=== PATIENT | female | born 1940 | race Hispanic/Latino ===

== ENCOUNTER 2016-10-01 21:25 | Inpatient (IN) | payer MEDICARE, OTHER ==
[2016-10-01 21:25] VITALS: BMI 36.6
[2016-10-01] MEDS ORDERED: Albuterol 0.083% Inhal Sol (2.5 mg/3 mL) UD INH STA (21:45)
[2016-10-01] MEDS ORDERED: Albuterol 0.083% Inhal Sol (2.5 mg/3 mL) UD ONE (21:46)
[2016-10-01 22:04] LABS: VENOUS BLOOD GAS BASE EXCESS 7.3 mmol/L (0.0-2.0); VENOUS BLOOD GAS PCO2 58 mmHg (40-60); VENOUS BLOOD PH 7.38 (7.32-7.43)
--- NOTE | 2016-10-01 22:05 | ED PDOC ---
HPI: SOB/CHF/COPD Time Seen by Provider: 10/01/16 21:39 Chief Complaint (Nursing): Respiratory Distress Chief Complaint (Provider): SOB History Per: Patient History/Exam Limitations: no limitations Onset/Duration Of Symptoms: Days (3) Current Symptoms Are (Timing): Still Present Additional Complaint(s): The patient is a 75yo female with PMHx of shortness of breath, presents to the ED for evaluation of worsening shortness of breath for the past 3 days. Pt reports worsening dyspnea with exertion, cough with productive yellow phlegm. pt denies chest pain as well as feeling febrile. She currently offers no additional medical complaints. Past Medical History Reviewed: Historical Data, Nursing Documentation, Vital Signs Vital Signs: Last Vital Signs Temp 101.2 F H 10/01/16 22:03 Pulse 97 H 10/01/16 21:28 Resp 18 10/01/16 21:28 BP 120/61 10/01/16 21:28 Pulse Ox 98 10/01/16 22:12 - Medical History PMH: Asthma, Diabetes, HTN - Surgical History Surgical History: Cholecystectomy - Family History Family History: States: Unknown Family Hx - Home Medications Home Medications: Ambulatory Orders Medication Instructions Recorded Atorvastatin Calcium [Lipitor] 10 mg PO DAILY 01/06/15 Glimepiride [amaRYL] 2 mg PO DAILY 01/06/15 Metformin HCl 850 mg PO BID 01/06/15 Sertraline [Zoloft] 100 mg PO HS 01/06/15 Sitagliptin Phosphate [Januvia] 100 mg PO DAILY 01/06/15 Acetaminophen [Tylenol Extra 1,000 mg PO Q12 PRN 02/27/16 Strength] Albuterol 0.083% [Albuterol 0.083% 1 inh INH Q6 PRN 02/27/16 Inhal Ale (2.5 mg/3 ml) UD] Albuterol Sulfate [Proair Hfa] 2 inh INH Q4H PRN 02/27/16 Budesonide/Formoterol Fumarate 1 inh INH Q4 PRN 02/27/16 [Symbicort 160-4.5 Mcg Inhaler] Ergocalciferol (Vitamin D2) 50,000 units PO QWK 02/27/16 [Vitamin D2] Guaifenesin/Codeine Phosphate 10 ml PO Q6 PRN 02/27/16 [Guaifenesin-Codeine Syrup] Iron Ps Cmplx/Vit B12/FA 1 cap PO DAILY 02/27/16 [Poly-Iron 150 Forte Capsule] Lisinopril [Zestril] 10 mg PO DAILY 02/27/16 Mometasone Furoate [Nasonex] 17 gm NS DAILY 02/27/16 Montelukast [Singulair] 10 mg PO HS 02/27/16 Pioglitazone [Actos] 15 mg PO DAILY 02/27/16 Azithromycin [Zithromax] 500 mg PO DAILY #5 tab 03/01/16 Methylprednisolone [Medrol Dose 4 mg PO ASDIR #21 mg 03/01/16 Pack (21 tabs)] - Allergies Allergies/Adverse Reactions: Allergies Allergy/AdvReac Type Severity Reaction Status Date / Time No Known Allergies Allergy Verified 05/15/15 14:01 Review of Systems ROS Statement: Except As Marked, All Systems Reviewed And Found Negative Cardiovascular: Negative for: Chest Pain Respiratory: Positive for: Cough, Shortness of Breath, SOB with Exertion, Sputum (yellow) Physical Exam - Reviewed Nursing Documentation Reviewed: Yes Vital Signs Reviewed: Yes - Physical Exam Appears: Positive for: Non-toxic, Uncomfortable. Negative for: Well (obese, chronically ill appearing) Head Exam: Positive for: ATRAUMATIC, NORMAL INSPECTION, NORMOCEPHALIC Skin: Positive for: Normal Color Eye Exam: Positive for: Normal appearance Neck: Positive for: Normal Cardiovascular/Chest: Positive for: Regular Rate, Rhythm Respiratory: Positive for: Wheezing (scattered wheeze bilaterAL) Extremity: Positive for: Other (1+ pitting edema to bilateral knees) - Laboratory Results Result Diagrams: 10/01/16 21:55 10/01/16 21:55 - ECG O2 Sat by Pulse Oximetry: 98 (RA) Pulse Ox Interpretation: Normal Medical Decision Making Medical Decision Making: Time: 2200 Impression: Influenza vs pneumonia vs CHF exacerbation Plan: -- Bloodwork -- CxR -- Rapid flu -- Albuterol 2.5 mg INH -- Medrol 125 mg IV -- Tylenol 625 mg PO --Reassess 2300 Pt. has evidence of PNA on CXR. Will treat for CAP and admit. Case d/w Dr. Mason. Scribe Attestation: Documented by Marce Herrera acting as a scribe for Julián Ross MD. Provider Attestation: All medical record entries made by the Scribe were at my direction and personally dictated by me. I have reviewed the chart and agree that the record accurately reflects my personal performance of the history, physical exam, medical decision making, and the department course for this patient. I have also personally directed, reviewed, and agree with the discharge instructions and disposition. Disposition - Clinical Impression Clinical Impression: Pneumonia - Disposition Disposition Time: 23:00 Condition: STABLE
[2016-10-01 22:19] LABS: BASO % 0.3 % (0.0-2.0); EOS % 0.2 % (0.0-4.0); HEMATOCRIT 28.2 % (34.0-47.0); LYMPH # 1.1 K/uL (1.0-4.3); MEAN CELL VOLUME 77.3 fl (81.0-99.0); MEAN CORPUSCULAR HEMOGLOBIN 23.4 pg (27.0-31.0); MEAN CORPUSCULAR HGB CONC 30.3 g/dL (33.0-37.0); MONO # 0.6 K/uL (0.0-0.8); NEUT # 9.5 K/uL (1.8-7.0); NEUT % 84.5 % (50.0-75.0); RED CELL DISTRIBUTION WIDTH 19.4 % (11.5-14.5); WHITE BLOOD COUNT 11.3 K/uL (4.8-10.8)
[2016-10-01] MEDS ORDERED: Azithromycin 500 MG in Sodium Chloride 0.9% 250 ML IVPB STA (22:47)
[2016-10-01] MEDS ORDERED: cefTRIAXone (Rocephin) 1 gm Inj ONE (22:50)
[2016-10-01 22:54] LABS: PARTIAL THROMBOPLASTIN TIME 24.8 SECONDS (23.3-32.5)
[2016-10-01 23:03] LABS: ALB/GLOB RATIO 1.2 (1.0-2.1); ALKALINE PHOSPHATASE 70 U/L (38-126); ALT/SGPT 24 U/L (9-52); AST/SGOT 27 U/L (14-36); BILIRUBIN,TOTAL 0.9 mg/dl (0.2-1.3); BLOOD UREA NITROGEN 10 mg/dl (7-17); CARBON DIOXIDE 28 mmol/L (22-30); CHLORIDE 101 mmol/L (98-107); GFR AFRICAN-AMERICAN > 60; GLUCOSE,RANDOM 147 mg/dL (65-105); SODIUM 142 mmol/l (132-148); TOTAL PROTEIN 7.2 G/DL (6.3-8.2)
[2016-10-01] MEDS ORDERED: cefTRIAXone 2 GM in Sodium Chloride 0.9% 100 ML IVPB STA (23:22)
[2016-10-01] MEDS ORDERED: Sodium Chloride 0.9% 1,000 ML IV STA (23:38)
--- NOTE | 2016-10-01 23:58 | CP.PCM.HP ---
History of Present Illness - History of Present Illness History of Present Illness: PCP:Kirby Duran MD Chief Complaint: SOB x3 days HPI: 75 years old female living alone and using a cane and wheel chair to ambulate, has hx of DM II; HTN andd Asthma- COPD on home oxygen She comes with worsening of SOB over 3 days, associated with productive cough, yellow sputum and frontal headaches. The SOB increases with exertion. No nausea, vomits , chest pain, palpitation, nor fever at home. PMH: Asthma, COPD; DM II; HTN; Obesity; HLD; CHF PSH: Cholecystectomy; Hysterectomy FH: Unknown Family Hx SH: No Cigarettes; no Alcohol; no illegal drug use; Live alone; ambulate either a cane or wheel chair Allergies: NKDA Present on Admission - Present on Admission Any Indicators Present on Admission: Yes History of DVT/PE: No History of Uncontrolled Diabetes: Yes Urinary Catheter: No Decubitus Ulcer Present: No Review of Systems - Constitutional Constitutional: Headache. absent: Anorexia, Chills, Fatigue, Fever, Lethargy - EENT Eyes: Requires Corrective Lenses. absent: Diplopia, Floaters, Sees Flashes Ears: absent: Decreased Hearing, Ear Discharge, Ear Pain, Tinnitus Nose/Mouth/Throat: absent: Epistaxis, Nasal Congestion, Nasal Discharge, Sinus Pain, Sinus Pressure, Sore Throat - Cardiovascular Cardiovascular: absent: Chest Pain, Dyspnea, Edema, Lightheadedness, Paroxysmal Nocturnal Dyspnea - Respiratory Respiratory: Cough, Wheezing. absent: Dyspnea, Pain on Inspiration - Gastrointestinal Gastrointestinal: absent: Abdominal Pain, Constipation, Diarrhea, Nausea, Vomiting - Genitourinary Genitourinary: absent: Dysuria, Flank Pain, Hematuria, Urinary Frequency - Musculoskeletal Musculoskeletal: Arthralgias. absent: Back Pain - Integumentary Integumentary: absent: Skin Ulcer, Sores, Striae, Swelling - Neurological Neurological: absent: Confusion, Dizziness, Focal Weakness, Memory Loss, Weakness - Psychiatric Psychiatric: absent: Anxiety, Depression, Memory Loss, Panic Attacks - Endocrine Endocrine: absent: Palpitations, Polydipsia, Polyphagia, Polyuria - Hematologic/Lymphatic Hematologic: absent: Easy Bleeding, Easy Bruising Past Patient History - Past Medical History & Family History Past Medical History?: Yes - Past Social History Smoking Status: Never Smoked Chewing Tobacco Use: No Cigar Use: No Alcohol: None Drugs: Denies Home Situation {Lives}: Alone - CARDIAC Hx Hypercholesterolemia: Yes Hx Hypertension: Yes - PULMONARY Hx Asthma: Yes Hx Chronic Obstructive Pulmonary Disease (COPD): Yes - NEUROLOGICAL Hx Neurological Disorder: No - HEENT Hx HEENT Problems: No - RENAL Hx Chronic Kidney Disease: No - ENDOCRINE/METABOLIC Hx Diabetes Mellitus Type 2: Yes - HEMATOLOGICAL/ONCOLOGICAL Hx Blood Disorders: No - INTEGUMENTARY Hx Dermatological Problems: No - MUSCULOSKELETAL/RHEUMATOLOGICAL Hx Falls: No - GASTROINTESTINAL Hx Gastrointestinal Disorders: No - GENITOURINARY/GYNECOLOGICAL Hx Genitourinary Disorders: No - PSYCHIATRIC Hx Psychophysiologic Disorder: Yes Hx Substance Use: No - SURGICAL HISTORY Hx Cholecystectomy: Yes Hx Hysterectomy: Yes - ANESTHESIA Hx Anesthesia: Yes Hx Anesthesia Reactions: No Meds Allergies/Adverse Reactions: Allergies Allergy/AdvReac Type Severity Reaction Status Date / Time No Known Allergies Allergy Verified 05/15/15 14:01 Physical Exam - Constitutional Appears: In Acute Distress - Head Exam Head Exam: ATRAUMATIC, NORMAL INSPECTION, NORMOCEPHALIC - Eye Exam Eye Exam: EOMI, Normal appearance Pupil Exam: NORMAL ACCOMODATION, PERRL - ENT Exam ENT Exam: Mucous Membranes Dry, Mucous Membranes Moist, Normal Exam - Neck Exam Neck exam: Positive for: Full Rom, Normal Inspection. Negative for: Lymphadenopathy, Tenderness - Respiratory Exam Additional comments: Bibasal fine inspiratory rales. - Cardiovascular Exam Cardiovascular Exam: RRR, +S1, +S2 - GI/Abdominal Exam Additional comments: obese with abdomen full, soft, non tender, +ve bowel sounds - Rectal Exam Rectal Exam: Deferred - Extremities Exam Extremities exam: Positive for: joint swelling, normal inspection. Negative for : calf tenderness, full ROM - Back Exam Back exam: NORMAL INSPECTION. absent: CVA tenderness (L), CVA tenderness (R) - Neurological Exam Neurological exam: Alert, CN II-XII Intact, Oriented x3, Reflexes Normal - Psychiatric Exam Psychiatric exam: Normal Affect, Normal Mood - Skin Skin Exam: Dry, Intact, Normal Color, Warm Results - Vital Signs Recent Vital Signs: Last Vital Signs Temp 101.2 F H 10/01/16 22:03 Pulse 97 H 10/01/16 21:28 Resp 18 10/01/16 21:28 BP 120/61 10/01/16 21:28 Pulse Ox 98 10/01/16 23:46 - Labs Result Diagrams: 10/01/16 21:55 10/01/16 21:55 Labs: Laboratory Results - last 24 hr 10/01/16 10/01/16 21:55 21:58 WBC 11.3 H RBC 3.65 L Hgb 8.6 L Hct 28.2 L MCV 77.3 L MCH 23.4 L MCHC 30.3 L RDW 19.4 H Plt Count 245 MPV 9.0 Neut % (Auto) 84.5 H Lymph % (Auto) 10.0 L [place] % (Auto) 5.0 Eos % (Auto) 0.2 Baso % (Auto) 0.3 Neut # 9.5 H Lymph # 1.1 [place] # 0.6 Eos # 0.0 Baso # 0.0 pO2 30 VBG pH 7.38 VBG pCO2 58 VBG HCO3 29.5 VBG Total CO2 36.1 H VBG O2 Sat (Calc) 69.2 H VBG Base Excess 7.3 H VBG Potassium 3.9 Glucose 148 H Lactate 0.8 FiO2 21.0 Sodium 142 140.0 Potassium 4.0 Chloride 101 109.0 H Carbon Dioxide 28 Anion Gap 17 BUN 10 Creatinine 0.6 L Est GFR ( Amer) > 60 Est GFR (Non-Af Amer) > 60 Random Glucose 147 H Calcium 9.0 Total Bilirubin 0.9 AST 27 ALT 24 Alkaline Phosphatase 70 Troponin I < 0.0120 NT-Pro-B Natriuret Pep 5680 H Total Protein 7.2 Albumin 3.9 Globulin 3.2 Albumin/Globulin Ratio 1.2 Venous Blood Potassium 3.9 Influenza Typ A,B (EIA) Negative for flu a/b - Imaging and Cardiology Chest x-ray Status: Image reviewed by me Additional comment: Bibasal haziness Assessment & Plan - Assessment and Plan (Free Text) Assessment: #. COPD Exacerbation #. r/o pneumonia #. CHF #. Anemia #.DM II #.Obesity Plan: 75 years old female living alone and using a cane and wheel chair to ambulate, has hx of DM II; HTN andd Asthma- COPD on home oxygen She comes with worsening of SOB over 3 days, associated with productive cough, yellow sputum and frontal headaches. #. COPD Asthma Exacerbation - Consult Pulmonary Dr Dia - Singular - Duoneb q4hrs -Solu-Medrol 40mg IV Q8H - Mucinex Q 12 #. Pneumonia - Rocephin 1gm IV Daily - Azithromycin #. CHF Diastolic Dysfunction with EF 40-45% on 02/27/16 - lisinopril - Lasix 20mg IV daily #. Anemia - Follow Iron Panel - Follow Hb #.DM II - Diabetic Diet - Januvia/Metformin/ Glipizide - HbA1c #.Obesity - Physical Therapist Clinic Director on diet an d exercise #. Depression - psych medications #. DVT prophylaxis with Lovenox #Code Status: Full - Date & Time Date: 10/01/16 Time: 23:58
[2016-10-02] MEDS ORDERED: Ergocalciferol 50,000 Intl Units Cap PO SCH (02:00)
[2016-10-02] MEDS: Albuterol-Ipratrop 3 mg / 0.5 (3 ml) UD INH SCH ×5 (04:31→20:00)
[2016-10-02 06:27] LABS: RBC URINE 3 /hpf (0-3); URINE BACTERIA RARE (<OCC); URINE BILIRUBIN NEGATIVE (NEGATIVE); URINE BLOOD NEGATIVE (NEGATIVE); URINE COLOR YELLOW (YELLOW); URINE GLUCOSE (UA) NEG (Normal); URINE KETONE 20 mg/dL (NEGATIVE); URINE LEUKOCYTE ESTERASE TRACE Leu/uL (Negative); URINE PROTEIN 30 mg/dL (NEGATIVE); URINE UROBILINOGEN 0.2-1.0 mg/dL (0.2-1.0); WBC URINE 2 /hpf (0-5)
[2016-10-02 06:59] LABS: BASO % 0.1 % (0.0-2.0); HEMATOCRIT 27.9 % (34.0-47.0); LYMPH # 0.6 K/uL (1.0-4.3); LYMPH % 6.2 % (20.0-40.0); MEAN CELL VOLUME 77.2 fl (81.0-99.0); MEAN CORPUSCULAR HEMOGLOBIN 23.9 pg (27.0-31.0); MEAN PLATELET VOLUME 9.2 fl (7.2-11.7); MONO # 0.1 K/uL (0.0-0.8); MONO % 0.6 % (0.0-10.0); NEUT # 8.9 K/uL (1.8-7.0); NEUT % 93.1 % (50.0-75.0); PLATELET COUNT 219 K/uL (130-400); RED CELL DISTRIBUTION WIDTH 19.3 % (11.5-14.5); WHITE BLOOD COUNT 9.5 K/uL (4.8-10.8)
[2016-10-02] MEDS: Insulin Regular 100 units/ml SC SCH ×4 (07:40→21:18)
[2016-10-02] MEDS ORDERED: cefTRIAXone 2 GM in Sodium Chloride 0.9% 100 ML IVPB SCH (09:00)
[2016-10-02] MEDS: GlipiZIDE 5 mg SR Tab PO SCH (09:08)
[2016-10-02] MEDS: guaiFENesin 600 mg ER Tab PO SCH ×2 (09:09→21:20)
[2016-10-02] MEDS: Enoxaparin 40 mg Syringe SC SCH (09:09)
[2016-10-02] MEDS: methylPREDNISolone 40 MG in Sodium Chloride 0.9% 50 ML IVPB SCH ×2 (09:10→16:34)
[2016-10-02] MEDS: Azithromycin 500 MG in Sodium Chloride 0.9% 250 ML IVPB SCH (09:24)
[2016-10-02] MEDS ORDERED: Sodium Chloride 3% for Inhalation 4 ML VIAL.NEB IH PRN (09:25)
--- NOTE | 2016-10-02 09:49 | RAD ---
PROCEDURE: CHEST RADIOGRAPH, 1 VIEW HISTORY: r/o PNA COMPARISON: 02/27/2016 FINDINGS: LUNGS: There is mild pulmonary venous congestion. There is no focal consolidation. PLEURA: No pneumothorax or pleural fluid seen. CARDIOVASCULAR: There is persistent mild cardiomegaly OSSEOUS STRUCTURES: No significant abnormalities. VISUALIZED UPPER ABDOMEN: Normal. OTHER FINDINGS: None. IMPRESSION: Persistent mild cardiomegaly and mild pulmonary venous congestion
[2016-10-02 10:12] LABS: IRON 63 ug/dL (37-170)
--- NOTE | 2016-10-02 10:30 | CON ---
DATE: 10/02/2016 HISTORY: The patient is a 75-year-old female who was referred for pulmonary evaluation by Dr. Mason, after being admitted with shortness of breath, exercise intolerance, cough for the past several days prior to presentation. The patient is on home oxygen and has a history of chronic obstructive pulmo nary disease. PAST MEDICAL HISTORY: Also remarkable for chronic obstructive pulmonary disease, diabetes mellitus, hypertension, hyperlipidemia, congestive heart failure, history of cholecystectomy and hysterectomy i n the past. FAMILY HISTORY: Noncontributory. SOCIAL HISTORY: She lives alone at home. Denies smoking or alcohol use. REVIEW OF SYSTEMS: Positive for shortness of breath. PHYSICAL EXAMINATION: GENERAL: The patient is alert, oriented, appears to be in mild dyspnea at rest. VITAL SIGNS: Blood pressure 120/60, pulse of 97, respiratory rate of 18, O2 sat 98% on room air. Te mperature maximum 101.2 degrees Fahrenheit. SKIN: Shows fair turgor. HEENT: Pupils equal and react to light and accommodation. Mouth shows fair hygiene. NECK: JVP flat. LUNGS: Bilateral scattered rales and wheezing. HEART: S1, S2. ABDOMEN: Soft, nontender, no organomegaly. EXTREMITIES: Show no edema or cyanosis. CENTRAL NERVOUS SYSTEM: Grossly intact. LABORATORY DATA: WBC 11.3, hemoglobin 8.6, platelet count 245,000. Sodium 142, potassium 4.0, BUN 1 0, creatinine 0.6, serum glucose 147. Chest x-ray official report pending, but appears to have bilat eral pulmonary infiltrates at both bases. IMPRESSION: Acute exacerbation of chronic obstructive pulmonary disease and pneumonia. PLAN: Sputum Gram stain and cultures. IV antibiotics, aerosolized bronchodilators, intravenous ster oids. We will continue to follow with you. Septic workup already done. Mikhail Dia MD cc: [id number] TT: 10/02/2016 10:29:58 Confirmation # [id number] Dictation # [id number] hsaron
[2016-10-02 12:16] LABS: NEUTROPHIL 92 % (42-75); TOTAL CELLS COUNTED 100
--- NOTE | 2016-10-02 12:41 | CON ---
DATE: 10/02/2016 CARDIOLOGY CONSULT REASON FOR CONSULTATION: Shortness of breath. HISTORY OF PRESENT ILLNESS: The patient is a 75-year-old female who has history of bronchi al asthma, hypertension, diabetes mellitus, history of congestive heart failure. An echocardiographi c study done in 02/2016 revealed ejection fraction in the range of 40-45% with moderate pulmonary hype rtension. The patient presented because of shortness of breath, wheezing, and productive cough. She denies any retrosternal chest pain. The patient is unaware of any history of heart attack in the [facility]. SOCIAL HISTORY: Nonsmoker, nondrinker. MEDICATIONS: ____ inhaler q. 4 hours, Glucophage 850 mg twice a day, Glucotrol XL 5 mg once a day, J anuvia 100 mg daily, Lasix 20 mg intravenously once a day, Lipitor 10 mg once a day, Lovenox 40 mg gimenez bcutaneously once a day, Solu-Medrol 40 mg intravenously q. 8 hours, Mucinex 600 mg twice a day, Sing ulair 10 mg daily, Zestril 10 mg once a day, Zoloft 100 mg at bedtime. REVIEW OF SYSTEMS: No fever or chills. No hemoptysis. No vomiting or diarrhea. PHYSICAL EXAMINATION: GENERAL: The patient is an elderly female who does not appear to be in any distress. VITAL SIGNS: Blood pressure 1____9/81, heart rate 89, temperature 98.6, respirations 21. HEENT: Pale conjunctivae. NECK: No JVD. CHEST: Minimal left basilar crackles and bilateral rhonchi. HEART: S1, S2 regular. ABDOMEN: Soft. EXTREMITIES: ____ leg edema. EKG revealed sinus rhythm at a rate of 99. Echocardiographic study in 02/2016 revealed normal left ventricular size, wall thickness, mild general ized hypokinesis, more pronounced in the septum. Ejection fraction in the range of 40-45%, and moder ate pulmonary hypertension. Grade I abnormal relaxation pattern. Chest x-ray revealed cardiomegaly, moderate CHF, cannot rule out left pleural effusion. LABORATORY DATA: PT/PTT within normal limits. Hemoglobin and hematocrit 8.6 and 27.9. White count and platelet count today are within normal limits. Yesterday's white count was 11.3. SMA-7 is withi n normal limits except for glucose 147 and creatinine 0.6. One set of troponins is negative. ProBNP is 5680. ASSESSMENT: 1. Exacerbation of congestive heart failure. 2. Consider cardiac asthma. 3. Hypertension. 4. Diabetes mellitus. 5. Secondary pulmonary hypertension. 6. Chronic obstructive lung disease and/or bronchial asthma. RECOMMENDATIONS: Continue current IV Zithromax and IV Rocephin. Continue current bronchodilators. Increase Lasix to 40 mg intravenously once a day. Continue Lipitor 10 mg once a day, subcutaneous Lo venox at 40 mg once a day, and Zestril 10 mg once a day. The patient is not a suitable candidate for beta-deysi therapy at least at this time. Tawanda Khan MD cc: [id number] TT: 10/02/2016 12:40:40 Confirmation # [id number] Dictation # [id number] jn
--- NOTE | 2016-10-02 13:53 | CP.PCM.PN ---
Subjective - Date & Time of Evaluation Date of Evaluation: 10/02/16 Time of Evaluation: 13:45 - Subjective Subjective: Hospitalist Progress Note (Patient was seen and examined at 1:45 PM 10/02/16 [id number]) 75 year old female who was admitted on 10/01/16 for treatment of COPD Exacerbation and CHF Exacerbation. Currently upon FULL ROS: Still SOB but better than when she came in Minor Bifrontal [place] NO chest pain, NO palpitations, Cough has improved, NO dysphagia/odynophagia, NO abdominal pain, NO burning/pain with urination, NO edema, NO paresthesias, NO new changes in vision/eye pain, NO new changes in hearing/ear pain HEENT: NCA, PERRLA, EOMI, NO cervical lymphadenopathy, NO thyromegaly, NO Pharyngeal Erythema/Exudate, Oral Mucosa and Nasal Turbinates are dry Cardio: Holosystolic Murmur in all bonilla Respiratory: Diffuse End expiratory wheezing with bibasilar inspiratory rales GI: BS x 4, Soft, Central Obesity, NT, NO HSM, NO guarding/rebound tenderness Ext: Pulses are strong and equal, Capillary Refill is 2 seconds, NO edema Neuro: CN II throiugh XII Assessment and Plan: 1). COPD Exacerbation Pulmonology Dr. Ifeoma Copeland Q4H PRN SOB/Wheezing Methylprednisone 40 mg IV Q8H Singulair 10 mg PO 1x/day 2). Pneumonia Azithromycin 500 mg IV 1x/day Ceftriaxone 1 gm IV 1x/day Mucinex 600 mg PO Q12H F/U Blood Culture Influenza Negative 3). CHF Diastolic Dysfunction Exacerbation Chest X Ray shows mild pulmonary vascular congestion ProBNP 5,680 2D Echocardiogram 02/27/16 showed EF 40-45% Lasix 40 mg IV 1x/day Zestril 10 mg PO 1x/day NO Beta Kenzie at this time Cardiology Dr. Khan 4). Anemia of Chronic Disease Stable HgB/Hct Monitor 5). DM 2 Januvia 100 mg PO 1x/day Glucotrol XL 5 mg PO 1x/day Metformin 850 mg PO 2x/day RISS F/U HgBA1C 6). HLD Lipitor 10 mg PO QHS 7). Depression Zoloft 10 mg PO QHS 8). Prophylactic Measures Lovenox 40 mg IV SQ 1x/day Protonix 40 mg PO 1x/day Vitamin D 50,000 Units once a week Objective - Vital Signs/Intake and Output Vital Signs (last 24 hours): Temp Pulse Resp BP Pulse Ox 97.4 F L 90 20 130/74 96 10/02/16 10:00 10/02/16 10:00 10/02/16 10:00 10/02/16 10:00 10/02/16 10:00 - Medications Medications: Current Medications Albuterol/Ipratropium (Duoneb 3 Mg/0.5 Mg (3 Ml) Ud) 3 ml INH RQ4 [facility] Last Admin: 10/02/16 11:38 Dose: 3 ml Atorvastatin Calcium (Lipitor) 10 mg PO DAILY [facility] Last Admin: 10/02/16 09:09 Dose: 10 mg Enoxaparin Sodium (Lovenox) 40 mg SC DAILY [facility] PRN Reason: Protocol Last Admin: 10/02/16 09:09 Dose: 40 mg Ergocalciferol (Drisdol 50,000 Intl Units Cap) 1 cap PO QWK [facility] Furosemide (Lasix) 40 mg IVP DAILY [facility] Glipizide (Glucotrol Xl) 5 mg PO BRK [facility] Last Admin: 10/02/16 09:08 Dose: 5 mg Guaifenesin (Mucinex La) 600 mg PO Q12 [facility] Last Admin: 10/02/16 09:09 Dose: 600 mg Ceftriaxone Sodium 1 gm/ (Sodium Chloride) 100 mls @ 100 mls/hr IVPB DAILY [facility] Last Admin: 10/02/16 09:22 Dose: 100 mls/hr Azithromycin 500 mg/ Sodium (Chloride) 250 mls @ 250 mls/hr IVPB DAILY [facility] Last Admin: 10/02/16 09:24 Dose: 250 mls/hr Methylprednisolone 40 mg/ (Sodium Chloride) 50 mls @ 100 mls/hr IVPB Q8 [facility] Last Admin: 10/02/16 09:10 Dose: 100 mls/hr Insulin Human Regular (Humulin R) 0 units SC ACHS [facility] PRN Reason: Protocol Last Admin: 10/02/16 12:56 Dose: 1 unit Lisinopril (Zestril) 10 mg PO DAILY [facility] Last Admin: 10/02/16 09:10 Dose: 10 mg Metformin HCl (Glucophage) 850 mg PO BID [facility] Last Admin: 10/02/16 09:08 Dose: 850 mg Montelukast Sodium (Singulair) 10 mg PO DAILY [facility] Last Admin: 10/02/16 09:09 Dose: 10 mg Sertraline HCl (Zoloft) 100 mg PO [facility] Sitagliptin Phosphate (Januvia) 100 mg PO DAILY [facility] Last Admin: 10/02/16 09:08 Dose: 100 mg - Labs Labs: 10/02/16 06:30 PT 10.6 SECONDS (9.6-11.2) 10/01/16 21:55 INR 1.02 (0.92-1.08) 10/01/16 21:55 APTT 24.8 SECONDS (23.3-32.5) 10/01/16 21:55
[2016-10-02 19:24] LABS: ABG ALLEN TEST YES; ARTERIAL BLOOD GAS HCO3 30.2 mmol/L (21-28); ARTERIAL BLOOD GAS MODE 3LNC; ARTERIAL BLOOD GAS O2 CAPACITY 12.3 mL/dL (16-24); ARTERIAL BLOOD GAS O2 CONTENT 12.2 ML/dL (15-23); ARTERIAL BLOOD GAS PH 7.39 (7.35-7.45); ARTERIAL BLOOD GAS PO2 112 mm/Hg (80-100); ARTERIAL BLOOD HGB O2 SAT 96.9 % (95.0-98.0); CARBOXYHEMOGLOBIN 1.4 % (0.5-1.5); HHB 0.6 % (0.0-5.0); METHEMOGLOBIN 1.1 % (0.0-3.0)
[2016-10-02] MEDS ORDERED: MONTELUKAST 10 MG PO SCH (22:00)
[2016-10-03] MEDS: methylPREDNISolone 40 MG in Sodium Chloride 0.9% 50 ML IVPB SCH ×4 (00:44→18:58)
[2016-10-03] MEDS: Albuterol-Ipratrop 3 mg / 0.5 (3 ml) UD INH SCH ×7 (01:00→23:56)
[2016-10-03] MEDS: Insulin Regular 100 units/ml SC SCH ×4 (06:35→23:07)
[2016-10-03 07:15] LABS: BASO % 0.1 % (0.0-2.0); HEMATOCRIT 27.2 % (34.0-47.0); LYMPH # 0.5 K/uL (1.0-4.3); LYMPH % 5.6 % (20.0-40.0); MEAN CORPUSCULAR HEMOGLOBIN 24.2 pg (27.0-31.0); MEAN CORPUSCULAR HGB CONC 31.1 g/dL (33.0-37.0); MEAN PLATELET VOLUME 9.4 fl (7.2-11.7); MONO # 0.2 K/uL (0.0-0.8); MONO % 1.7 % (0.0-10.0); NEUT # 8.7 K/uL (1.8-7.0); NEUT % 92.6 % (50.0-75.0); RED CELL DISTRIBUTION WIDTH 19.3 % (11.5-14.5); WHITE BLOOD COUNT 9.4 K/uL (4.8-10.8)
[2016-10-03 07:40] LABS: BLOOD UREA NITROGEN 22 mg/dl (7-17); CARBON DIOXIDE 29 mmol/L (22-30); CHLORIDE 103 mmol/L (98-107); GFR AFRICAN-AMERICAN > 60; GLUCOSE,RANDOM 180 mg/dL (65-105); POTASSIUM 4.3 MMOL/L (3.6-5.0); SODIUM 146 mmol/l (132-148)
[2016-10-03] MEDS: Pantoprazole 40 mg EC Tab PO SCH (09:12)
[2016-10-03] MEDS: guaiFENesin 600 mg ER Tab PO SCH ×2 (09:12→21:10)
[2016-10-03] MEDS: GlipiZIDE 5 mg SR Tab PO SCH (09:13)
[2016-10-03] MEDS: Enoxaparin 40 mg Syringe SC SCH (09:14)
[2016-10-03] MEDS: Azithromycin 500 MG in Sodium Chloride 0.9% 250 ML IVPB SCH (09:16)
--- NOTE | 2016-10-03 12:13 | CP.PCM.PN ---
Subjective - Date & Time of Evaluation Date of Evaluation: 10/03/16 Time of Evaluation: 12:00 - Subjective Subjective: Hospitalist Progress Note (Patient was seen and examined at 12:00 PM 10/03/16 [phone] with the help of Luisana Burns who translated in Moroccan) 75 year old female who was admitted on 10/01/16 for treatment of COPD Exacerbation and CHF Exacerbation. Currently upon FULL ROS: SOB and cough much improved Moved her bowels last night No other complaints: NO chest pain, NO palpitations, Cough has improved, NO dysphagia/odynophagia, NO abdominal pain, NO n/v/d/c, NO burning/pain with urination, NO edema, NO paresthesias, NO new changes in vision/eye pain, NO new changes in hearing/ear pain HEENT: NCA, PERRLA, EOMI, NO cervical lymphadenopathy, NO thyromegaly, NO Pharyngeal Erythema/Exudate, Oral Mucosa and Nasal Turbinates are dry Cardio: Holosystolic Murmur in all bonilla Respiratory: End Expiratory Wheezing is now only scattered compared to Diffuse on 10/02/16 GI: BS x 4, Soft, Central Obesity, NT, NO HSM, NO guarding/rebound tenderness Ext: Pulses are strong and equal, Capillary Refill is 2 seconds, NO edema Neuro: CN II throiugh XII Assessment and Plan: 1). COPD Exacerbation Pulmonology Dr. Ifeoma Copeland Q4H PRN SOB/Wheezing Methylprednisone 40 mg IV Q8H changed to Q12H Singulair 10 mg PO 1x/day 2). Pneumonia Azithromycin 500 mg IV 1x/day (10/02/16) Ceftriaxone 1 gm IV 1x/day (10/02/16) Mucinex 600 mg PO Q12H F/U Blood Culture Influenza Negative 3). CHF Diastolic Dysfunction Exacerbation Chest X Ray shows mild pulmonary vascular congestion ProBNP 5,680 upon admission 2D Echocardiogram 02/27/16 showed EF 40-45% Lasix 40 mg IV 1x/day Zestril 10 mg PO 1x/day NO Beta Kenzie at this time and will start Carvedilol once ok with Cardiology Cardiology Dr. Khan 4). Anemia of Chronic Disease Stable HgB/Hct Monitor 5). DM 2 Januvia 100 mg PO 1x/day Glucotrol XL 5 mg PO 1x/day Metformin 850 mg PO 2x/day RISS F/U HgBA1C 6). HLD Lipitor 10 mg PO QHS 7). Depression Zoloft 10 mg PO QHS 8). Prophylactic Measures Lovenox 40 mg IV SQ 1x/day Protonix 40 mg PO 1x/day Vitamin D 50,000 Units once a week ROS: SOB and cough much improved Moved her bowels last night No other complaints If patient continues to do better and blood culture negative then will likely d/ c in the morning if ok with Cardiology and Pulmonology. Objective - Vital Signs/Intake and Output Vital Signs (last 24 hours): Temp Pulse Resp BP Pulse Ox 98 F 102 H 20 145/69 98 10/03/16 08:20 10/03/16 09:14 10/03/16 08:20 10/03/16 09:16 10/03/16 08:20 Intake and Output: 10/03/16 10/03/16 06:59 18:59 Intake Total 1190 Balance 1190 - Medications Medications: Current Medications Albuterol/Ipratropium (Duoneb 3 Mg/0.5 Mg (3 Ml) Ud) 3 ml INH RQ4 [facility] Last Admin: 10/03/16 11:41 Dose: 3 ml Atorvastatin Calcium (Lipitor) 10 mg PO DAILY [facility] Last Admin: 10/03/16 09:12 Dose: 10 mg Enoxaparin Sodium (Lovenox) 40 mg SC DAILY [facility] PRN Reason: Protocol Last Admin: 10/03/16 09:14 Dose: 40 mg Ergocalciferol (Drisdol 50,000 Intl Units Cap) 1 cap PO QWK [facility] Furosemide (Lasix) 40 mg IVP DAILY [facility] Last Admin: 10/03/16 09:16 Dose: 40 mg Glipizide (Glucotrol Xl) 5 mg PO BRK [facility] Last Admin: 10/03/16 09:13 Dose: 5 mg Guaifenesin (Mucinex La) 600 mg PO Q12 [facility] Last Admin: 10/03/16 09:12 Dose: 600 mg Ceftriaxone Sodium 1 gm/ (Sodium Chloride) 100 mls @ 100 mls/hr IVPB DAILY [facility] Last Admin: 10/03/16 09:15 Dose: 100 mls/hr Azithromycin 500 mg/ Sodium (Chloride) 250 mls @ 250 mls/hr IVPB DAILY [facility] Last Admin: 10/03/16 09:16 Dose: 250 mls/hr Methylprednisolone 40 mg/ (Sodium Chloride) 50 mls @ 100 mls/hr IVPB Q8 [facility] Last Admin: 10/03/16 09:15 Dose: 100 mls/hr Insulin Human Regular (Humulin R) 0 units SC ACHS [facility] PRN Reason: Protocol Last Admin: 10/03/16 06:35 Dose: Not Given Lisinopril (Zestril) 10 mg PO DAILY [facility] Last Admin: 10/03/16 09:14 Dose: 10 mg Metformin HCl (Glucophage) 850 mg PO BID [facility] Last Admin: 10/03/16 09:11 Dose: 850 mg Montelukast Sodium (Singulair) 10 mg PO DAILY [facility] Last Admin: 10/03/16 09:12 Dose: 10 mg Pantoprazole Sodium (Protonix Ec Tab) 40 mg PO DAILY [facility] Last Admin: 10/03/16 09:12 Dose: 40 mg Sertraline HCl (Zoloft) 100 mg PO HS [facility] Last Admin: 10/02/16 21:20 Dose: 100 mg Sitagliptin Phosphate (Januvia) 100 mg PO DAILY [facility] Last Admin: 10/03/16 09:13 Dose: 100 mg - Labs Labs: 10/03/16 06:05 10/03/16 06:05 PT 10.6 SECONDS (9.6-11.2) 10/01/16 21:55 INR 1.02 (0.92-1.08) 10/01/16 21:55 APTT 24.8 SECONDS (23.3-32.5) 10/01/16 21:55
--- NOTE | 2016-10-03 13:26 | PN ---
DATE: 10/03/2016 The patient's shortness of breath has improved. She denies any wheezing or productive cough. PHYSICAL EXAMINATION: VITAL SIGNS: Blood pressure 133/72, heart rate 90, temperature 98.8, respirations 21. HEENT: Pale conjunctivae. CHEST: Bilateral rhonchi. HEART: S1, S2 regular. EXTREMITIES: Trace leg edema. LABORATORIES: Today's SMA-7 within normal limits except for glucose of 180 and BUN of 22. Hemoglobi n and hematocrit 8.5 and 27.2, white count and platelet count are within normal limits. ASSESSMENT: 1. Exacerbation of congestive heart failure. 2. Chronic obstructive lung disease. 3. Hypertension and diabetes mellitus. 4. Secondary pulmonary hypertension. RECOMMENDATIONS: Continue current IV Zithromax and IV Rocephin. Continue IV Solu-Medrol, continue c urrent bronchodilators including albuterol, continue Lasix 40 mg intravenous twice a day, Lipitor 10 mg once a day, subcutaneous Lovenox at 40 mg once a day and Zestril at 10 mg once a day. Tawanda Khan MD cc: [id number] TT: 10/03/2016 13:25:26 Confirmation # [id number] Dictation # [id number]
--- NOTE | 2016-10-03 18:04 | CP.PCM.PN ---
Subjective - Date & Time of Evaluation Date of Evaluation: 10/03/16 Time of Evaluation: 18:04 - Subjective Subjective: sob improved no chest pains or cough Objective - Vital Signs/Intake and Output Vital Signs (last 24 hours): Temp Pulse Resp BP Pulse Ox 98.6 F 93 H 20 151/84 H 91 L 10/03/16 15:52 10/03/16 15:52 10/03/16 15:52 10/03/16 15:52 10/03/16 15:52 Intake and Output: 10/03/16 10/03/16 06:59 18:59 Intake Total 1190 Balance 1190 - Medications Medications: Current Medications Albuterol/Ipratropium (Duoneb 3 Mg/0.5 Mg (3 Ml) Ud) 3 ml INH RQ4 [facility] Last Admin: 10/03/16 11:41 Dose: 3 ml Atorvastatin Calcium (Lipitor) 10 mg PO DAILY [facility] Last Admin: 10/03/16 09:12 Dose: 10 mg Enoxaparin Sodium (Lovenox) 40 mg SC DAILY [facility] PRN Reason: Protocol Last Admin: 10/03/16 09:14 Dose: 40 mg Ergocalciferol (Drisdol 50,000 Intl Units Cap) 1 cap PO QWK [facility] Furosemide (Lasix) 40 mg IVP DAILY [facility] Last Admin: 10/03/16 09:16 Dose: 40 mg Glipizide (Glucotrol Xl) 5 mg PO BRK [facility] Last Admin: 10/03/16 09:13 Dose: 5 mg Guaifenesin (Mucinex La) 600 mg PO Q12 [facility] Last Admin: 10/03/16 09:12 Dose: 600 mg Ceftriaxone Sodium 1 gm/ (Sodium Chloride) 100 mls @ 100 mls/hr IVPB DAILY [facility] Last Admin: 10/03/16 09:15 Dose: 100 mls/hr Azithromycin 500 mg/ Sodium (Chloride) 250 mls @ 250 mls/hr IVPB DAILY [facility] Last Admin: 10/03/16 09:16 Dose: 250 mls/hr Methylprednisolone 40 mg/ (Sodium Chloride) 50 mls @ 100 mls/hr IVPB Q12H [facility] Insulin Human Regular (Humulin R) 0 units SC ACHS [facility] PRN Reason: Protocol Last Admin: 10/03/16 17:17 Dose: 1 unit Lisinopril (Zestril) 10 mg PO DAILY [facility] Last Admin: 10/03/16 09:14 Dose: 10 mg Metformin HCl (Glucophage) 850 mg PO BID [facility] Last Admin: 10/03/16 17:15 Dose: 850 mg Montelukast Sodium (Singulair) 10 mg PO DAILY [facility] Last Admin: 10/03/16 09:12 Dose: 10 mg Pantoprazole Sodium (Protonix Ec Tab) 40 mg PO DAILY [facility] Last Admin: 10/03/16 09:12 Dose: 40 mg Sertraline HCl (Zoloft) 100 mg PO HS [facility] Last Admin: 10/02/16 21:20 Dose: 100 mg Sitagliptin Phosphate (Januvia) 100 mg PO DAILY [facility] Last Admin: 10/03/16 09:13 Dose: 100 mg - Labs Labs: 10/03/16 06:05 10/03/16 06:05 PT 10.6 SECONDS (9.6-11.2) 10/01/16 21:55 INR 1.02 (0.92-1.08) 10/01/16 21:55 APTT 24.8 SECONDS (23.3-32.5) 10/01/16 21:55 - Constitutional Appears: Well - Head Exam Head Exam: ATRAUMATIC, NORMAL INSPECTION, NORMOCEPHALIC - Eye Exam Eye Exam: EOMI, Normal appearance, PERRL Pupil Exam: NORMAL ACCOMODATION, PERRL - ENT Exam ENT Exam: Mucous Membranes Moist, Normal Exam - Neck Exam Neck Exam: Full ROM, Normal Inspection. absent: Lymphadenopathy - Respiratory Exam Respiratory Exam: Decreased Breath Sounds, Prolonged Expiratory Phase, NORMAL BREATHING PATTERN - Cardiovascular Exam Cardiovascular Exam: REGULAR RHYTHM, +S1, +S2. absent: Murmur - GI/Abdominal Exam GI & Abdominal Exam: Soft, Normal Bowel Sounds. absent: Tenderness - Rectal Exam Rectal Exam: NORMAL INSPECTION - Extremities Exam Extremities Exam: Full ROM, Normal Capillary Refill, Normal Inspection. absent : Joint Swelling, Pedal Edema - Back Exam Back Exam: NORMAL INSPECTION - Neurological Exam Neurological Exam: Alert, Awake, CN II-XII Intact, Normal Gait, Oriented x3 - Psychiatric Exam Psychiatric exam: Normal Affect, Normal Mood - Skin Skin Exam: Dry, Intact, Normal Color, Warm Assessment and Plan - Assessment and Plan (Free Text) Assessment: copd pneumonia Plan: continue same rx
[2016-10-04] MEDS: methylPREDNISolone 40 MG in Sodium Chloride 0.9% 50 ML IVPB SCH (04:52)
[2016-10-04] MEDS: Albuterol-Ipratrop 3 mg / 0.5 (3 ml) UD INH SCH ×3 (05:00→13:10)
[2016-10-04] MEDS: Insulin Regular 100 units/ml SC SCH ×2 (06:37→13:05)
[2016-10-04 07:49] LABS: BASO % 0.1 % (0.0-2.0); HEMATOCRIT 27.6 % (34.0-47.0); LYMPH # 0.9 K/uL (1.0-4.3); LYMPH % 11.5 % (20.0-40.0); MEAN CELL VOLUME 77.3 fl (81.0-99.0); MEAN CORPUSCULAR HEMOGLOBIN 24.2 pg (27.0-31.0); MEAN CORPUSCULAR HGB CONC 31.3 g/dL (33.0-37.0); MEAN PLATELET VOLUME 9.2 fl (7.2-11.7); MONO # 0.6 K/uL (0.0-0.8); MONO % 6.9 % (0.0-10.0); NEUT # 6.5 K/uL (1.8-7.0); NEUT % 81.5 % (50.0-75.0); NRBC % 0.1 % (0.0-0.0); RED CELL DISTRIBUTION WIDTH 19.5 % (11.5-14.5); WHITE BLOOD COUNT 7.9 K/uL (4.8-10.8)
[2016-10-04 07:59] LABS: BLOOD UREA NITROGEN 26 mg/dl (7-17); CARBON DIOXIDE 29 mmol/L (22-30); CHLORIDE 104 mmol/L (98-107); GFR AFRICAN-AMERICAN > 60; GLUCOSE,RANDOM 110 mg/dL (65-105); POTASSIUM 3.8 MMOL/L (3.6-5.0); SODIUM 145 mmol/l (132-148)
[2016-10-04 08:10] VITALS: TEMP 98.1
[2016-10-04] MEDS: GlipiZIDE 5 mg SR Tab PO SCH (09:18)
[2016-10-04] MEDS: guaiFENesin 600 mg ER Tab PO SCH (09:18)
[2016-10-04] MEDS: Pantoprazole 40 mg EC Tab PO SCH (09:19)
[2016-10-04] MEDS: Enoxaparin 40 mg Syringe SC SCH (09:23)
[2016-10-04] MEDS: Azithromycin 500 MG in Sodium Chloride 0.9% 250 ML IVPB SCH (09:24)
--- NOTE | 2016-10-04 10:05 | CP.PCM.PN ---
Subjective - Date & Time of Evaluation Date of Evaluation: 10/04/16 Time of Evaluation: 10:04 - Subjective Subjective: SOB IMPROVED Objective - Vital Signs/Intake and Output Vital Signs (last 24 hours): Temp Pulse Resp BP Pulse Ox 98.1 F 94 H 20 138/69 97 10/04/16 08:09 10/04/16 09:19 10/04/16 08:09 10/04/16 09:19 10/04/16 08:09 - Medications Medications: Current Medications Albuterol/Ipratropium (Duoneb 3 Mg/0.5 Mg (3 Ml) Ud) 3 ml INH RQ4 [facility] Last Admin: 10/04/16 07:53 Dose: 3 ml Atorvastatin Calcium (Lipitor) 10 mg PO DAILY [facility] Last Admin: 10/04/16 09:19 Dose: 10 mg Enoxaparin Sodium (Lovenox) 40 mg SC DAILY [facility] PRN Reason: Protocol Last Admin: 10/04/16 09:23 Dose: 40 mg Ergocalciferol (Drisdol 50,000 Intl Units Cap) 1 cap PO QWK [facility] Furosemide (Lasix) 40 mg IVP DAILY [facility] Last Admin: 10/04/16 09:19 Dose: 40 mg Glipizide (Glucotrol Xl) 5 mg PO BRK [facility] Last Admin: 10/04/16 09:18 Dose: 5 mg Guaifenesin (Mucinex La) 600 mg PO Q12 [facility] Last Admin: 10/04/16 09:18 Dose: 600 mg Ceftriaxone Sodium 1 gm/ (Sodium Chloride) 100 mls @ 100 mls/hr IVPB DAILY [facility] Last Admin: 10/04/16 09:19 Dose: 100 mls/hr Azithromycin 500 mg/ Sodium (Chloride) 250 mls @ 250 mls/hr IVPB DAILY [facility] Last Admin: 10/04/16 09:24 Dose: 250 mls/hr Insulin Human Regular (Humulin R) 0 units SC ACHS [facility] PRN Reason: Protocol Last Admin: 10/04/16 06:37 Dose: Not Given Lisinopril (Zestril) 10 mg PO DAILY [facility] Last Admin: 10/04/16 09:19 Dose: 10 mg Metformin HCl (Glucophage) 850 mg PO BID [facility] Last Admin: 10/04/16 09:18 Dose: 850 mg Montelukast Sodium (Singulair) 10 mg PO DAILY [facility] Last Admin: 10/04/16 09:19 Dose: 10 mg Pantoprazole Sodium (Protonix Ec Tab) 40 mg PO DAILY [facility] Last Admin: 10/04/16 09:19 Dose: 40 mg Sertraline HCl (Zoloft) 100 mg PO HS [facility] Last Admin: 10/03/16 21:10 Dose: 100 mg Sitagliptin Phosphate (Januvia) 100 mg PO DAILY [facility] Last Admin: 10/04/16 09:18 Dose: 100 mg - Labs Labs: 10/04/16 06:25 10/04/16 06:25 PT 10.6 SECONDS (9.6-11.2) 10/01/16 21:55 INR 1.02 (0.92-1.08) 10/01/16 21:55 APTT 24.8 SECONDS (23.3-32.5) 10/01/16 21:55 - Constitutional Appears: No Acute Distress - Head Exam Head Exam: ATRAUMATIC, NORMAL INSPECTION, NORMOCEPHALIC - Eye Exam Eye Exam: EOMI, Normal appearance, PERRL Pupil Exam: NORMAL ACCOMODATION, PERRL - ENT Exam ENT Exam: Mucous Membranes Moist, Normal Exam - Neck Exam Neck Exam: Full ROM, Normal Inspection. absent: Lymphadenopathy - Respiratory Exam Respiratory Exam: Prolonged Expiratory Phase, NORMAL BREATHING PATTERN - Cardiovascular Exam Cardiovascular Exam: REGULAR RHYTHM, +S1, +S2. absent: Murmur - GI/Abdominal Exam GI & Abdominal Exam: Soft, Normal Bowel Sounds. absent: Tenderness - Rectal Exam Rectal Exam: NORMAL INSPECTION - Extremities Exam Extremities Exam: Full ROM, Normal Capillary Refill, Normal Inspection. absent : Joint Swelling, Pedal Edema - Back Exam Back Exam: NORMAL INSPECTION - Neurological Exam Neurological Exam: Alert, Awake, CN II-XII Intact, Normal Gait, Oriented x3 - Psychiatric Exam Psychiatric exam: Normal Affect, Normal Mood - Skin Skin Exam: Dry, Intact, Normal Color, Warm Assessment and Plan - Assessment and Plan (Free Text) Assessment: COPD IMPROVED PNEUMONIA-CLINICALLY IMPROVING Plan: TAPER STEROIDS
--- NOTE | 2016-10-04 11:51 | CP.PCM.DIS ---
Provider - Provider Date of Admission: 10/01/16 23:37 Attending physician: Terrence Mason Primary care physician: Dr. Duran Consults: Cardiology Dr. Maria D Khan Boiler Or Engine Operator Dr. Dia Time Spent in preparation of Discharge (in minutes): 40 Hospital Course - Lab Results Lab Results: Most Recent Lab Values WBC 7.9 K/uL (4.8-10.8) 10/04/16 06:25 RBC 3.57 Mil/uL (3.80-5.20) L 10/04/16 06:25 Hgb 8.6 g/dL (12.0-16.0) L 10/04/16 06:25 Hct 27.6 % (34.0-47.0) L 10/04/16 06:25 MCV 77.3 fl (81.0-99.0) L 10/04/16 06:25 MCH 24.2 pg (27.0-31.0) L 10/04/16 06:25 MCHC 31.3 g/dL (33.0-37.0) L 10/04/16 06:25 RDW 19.5 % (11.5-14.5) H 10/04/16 06:25 Plt Count 238 K/uL (130-400) 10/04/16 06:25 MPV 9.2 fl (7.2-11.7) 10/04/16 06:25 Neut % (Auto) 81.5 % (50.0-75.0) H 10/04/16 06:25 Lymph % (Auto) 11.5 % (20.0-40.0) L 10/04/16 06:25 Pratt % (Auto) 6.9 % (0.0-10.0) 10/04/16 06:25 Eos % (Auto) 0.0 % (0.0-4.0) 10/04/16 06:25 Baso % (Auto) 0.1 % (0.0-2.0) 10/04/16 06:25 Neut # 6.5 K/uL (1.8-7.0) 10/04/16 06:25 Lymph # 0.9 K/uL (1.0-4.3) L 10/04/16 06:25 Pratt # 0.6 K/uL (0.0-0.8) 10/04/16 06:25 Eos # 0.0 K/uL (0.0-0.7) 10/04/16 06:25 Baso # 0.0 K/uL (0.0-0.2) 10/04/16 06:25 Total Counted Cancelled 10/03/16 06:05 Neutrophils % (Manual) 92 % (42-75) H 10/02/16 06:30 Band Neutrophils % Cancelled 10/03/16 06:05 Lymphocytes % (Manual) 7 % (20-50) L 10/02/16 06:30 Reactive Lymphs % Cancelled 10/03/16 06:05 Monocytes % (Manual) 1 % (0-10) 10/02/16 06:30 Eosinophils % (Manual) Cancelled 10/03/16 06:05 Basophils % (Manual) Cancelled 10/03/16 06:05 Metamyelocytes % Cancelled 10/03/16 06:05 Myelocytes % Cancelled 10/03/16 06:05 Promyelocytes % Cancelled 10/03/16 06:05 Blast Cells % Cancelled 10/03/16 06:05 Plasma Cell % (Manual) Cancelled 10/03/16 06:05 Nucleated RBC % Cancelled 10/03/16 06:05 Hypersegmented Polys Cancelled 10/03/16 06:05 Smudge Cells Cancelled 10/03/16 06:05 Toxic Granulation Present 10/02/16 06:30 Dohle Bodies Cancelled 10/03/16 06:05 Srinath Rods Cancelled 10/03/16 06:05 Platelet Estimate Normal (NORMAL) 10/02/16 06:30 Plt Clumps, EDTA Cancelled 10/03/16 06:05 Large Platelets Cancelled 10/03/16 06:05 Giant Platelets Cancelled 10/03/16 06:05 RBC Morphology Cancelled 10/03/16 06:05 Polychromasia Cancelled 10/03/16 06:05 Hypochromasia (manual) Slight 10/02/16 06:30 Poikilocytosis (manual Slight 10/02/16 06:30 Basophilic Stippling Cancelled 10/03/16 06:05 Anisocytosis (manual) Moderate 10/02/16 06:30 Microcytosis (manual) Slight 10/02/16 06:30 Macrocytosis (manual) Cancelled 10/03/16 06:05 Spherocytes Cancelled 10/03/16 06:05 Sickle Cells Cancelled 10/03/16 06:05 Target Cells Cancelled 10/03/16 06:05 Tear Drop Cells Slight 10/02/16 06:30 Ovalocytes Slight 10/02/16 06:30 Stomatocytes Cancelled 10/03/16 06:05 Helmet Cells Cancelled 10/03/16 06:05 Fox-Mcdowell Bodies Cancelled 10/03/16 06:05 Lemoore Cells Cancelled 10/03/16 06:05 Acanthocytes (Spur) Cancelled 10/03/16 06:05 Rouleaux Cancelled 10/03/16 06:05 Schistocytes Cancelled 10/03/16 06:05 PT 10.6 SECONDS (9.6-11.2) 10/01/16 21:55 INR 1.02 (0.92-1.08) 10/01/16 21:55 APTT 24.8 SECONDS (23.3-32.5) 10/01/16 21:55 pCO2 54 mm/Hg (35-45) H 10/02/16 19:16 pO2 112 mm/Hg (80-100) H 10/02/16 19:16 HCO3 30.2 mmol/L (21-28) H 10/02/16 19:16 ABG pH 7.39 (7.35-7.45) 10/02/16 19:16 ABG Total CO2 34.4 mmol/L (22-28) H 10/02/16 19:16 ABG O2 Saturation 99.4 % (95-98) H 10/02/16 19:16 ABG O2 Content 12.2 ML/dL (15-23) L 10/02/16 19:16 ABG Base Excess 6.7 mmol/L (-2.0-3.0) H 10/02/16 19:16 ABG Hemoglobin 8.8 g/dL (11.7-17.4) L 10/02/16 19:16 ABG Carboxyhemoglobin 1.4 % (0.5-1.5) 10/02/16 19:16 POC ABG HHb (Measured) 0.6 % (0.0-5.0) 10/02/16 19:16 ABG Methemoglobin 1.1 % (0.0-3.0) 10/02/16 19:16 ABG O2 Capacity 12.3 mL/dL (16-24) L 10/02/16 19:16 Qasim Test Yes 10/02/16 19:16 VBG pH 7.38 (7.32-7.43) 10/01/16 21:58 VBG pCO2 58 mmHg (40-60) 10/01/16 21:58 VBG HCO3 29.5 mmol/L 10/01/16 21:58 VBG Total CO2 36.1 mmol/L (22-28) H 10/01/16 21:58 VBG O2 Sat (Calc) 69.2 % (40-65) H 10/01/16 21:58 VBG Base Excess 7.3 mmol/L (0.0-2.0) H 10/01/16 21:58 VBG Potassium 3.9 mmol/L (3.6-5.2) 10/01/16 21:58 A-a O2 Difference 49.0 mm/Hg 10/02/16 19:16 Hgb O2 Saturation 96.9 % (95.0-98.0) 10/02/16 19:16 Sodium 140.0 mmol/L (132-148) 10/01/16 21:58 Chloride 109.0 mmol/L (98-107) H 10/01/16 21:58 Glucose 148 mg/dL (65-105) H 10/01/16 21:58 Lactate 0.8 mmol/L (0.7-2.1) 10/01/16 21:58 Vent Mode 3lnc 10/02/16 19:16 FiO2 32.0 % 10/02/16 19:16 Sodium 145 mmol/l (132-148) 10/04/16 06:25 Potassium 3.8 MMOL/L (3.6-5.0) 10/04/16 06:25 Chloride 104 mmol/L (98-107) 10/04/16 06:25 Carbon Dioxide 29 mmol/L (22-30) 10/04/16 06:25 Anion Gap 16 (10-20) 10/04/16 06:25 BUN 26 mg/dl (7-17) H 10/04/16 06:25 Creatinine 0.7 mg/dL (0.7-1.2) 10/04/16 06:25 Est GFR ( Amer) > 60 10/04/16 06:25 Est GFR (Non-Af Amer) > 60 10/04/16 06:25 POC Glucose (mg/dL) 101 mg/dL (65-110) 10/04/16 05:16 Random Glucose 110 mg/dL (65-105) H 10/04/16 06:25 Hemoglobin A1c 5.1 % (4.2-6.5) 10/02/16 06:30 Calcium 9.0 mg/dL (8.4-10.2) 10/04/16 06:25 Iron 63 ug/dL (37-170) 10/02/16 06:30 TIBC 411 ug/dL (250-450) 10/02/16 06:30 % Saturation 15 % (20-55) L 10/02/16 06:30 Total Bilirubin 0.9 mg/dl (0.2-1.3) 10/01/16 21:55 AST 27 U/L (14-36) 10/01/16 21:55 ALT 24 U/L (9-52) 10/01/16 21:55 Alkaline Phosphatase 70 U/L (38-126) 10/01/16 21:55 Troponin I < 0.0120 ng/mL (0.00-0.120) 10/01/16 21:55 NT-Pro-B Natriuret Pep 5680 pg/ml (0-900) H 10/01/16 21:55 Total Protein 7.2 G/DL (6.3-8.2) 10/01/16 21:55 Albumin 3.9 g/dL (3.5-5.0) 10/01/16 21:55 Globulin 3.2 gm/dL (2.2-3.9) 10/01/16 21:55 Albumin/Globulin Ratio 1.2 (1.0-2.1) 10/01/16 21:55 Venous Blood Potassium 3.9 mmol/L (3.6-5.2) 10/01/16 21:58 Urine Color Yellow (YELLOW) 10/02/16 05:30 Urine Clarity Clear (Clear) 10/02/16 05:30 Urine pH 5.0 (5.0-8.0) 10/02/16 05:30 Ur Specific [place] 1.018 (1.003-1.030) 10/02/16 05:30 Urine Protein 30 mg/dL (NEGATIVE) 10/02/16 05:30 Urine Glucose (UA) Neg mg/dL (Normal) 10/02/16 05:30 Urine Ketones 20 mg/dL (NEGATIVE) 10/02/16 05:30 Urine Blood Negative (NEGATIVE) 10/02/16 05:30 Urine Nitrate Negative (NEGATIVE) 10/02/16 05:30 Urine Bilirubin Negative (NEGATIVE) 10/02/16 05:30 Urine Urobilinogen 0.2-1.0 mg/dL (0.2-1.0) 10/02/16 05:30 Ur Leukocyte Esterase Trace Uziel/uL (Negative) 10/02/16 05:30 Urine RBC (Auto) 3 /hpf (0-3) 10/02/16 05:30 Urine Microscopic WBC 2 /hpf (0-5) 10/02/16 05:30 Ur Squamous Epith Cells 5 /hpf (0-5) 10/02/16 05:30 Urine Bacteria Rare (<OCC) 10/02/16 05:30 Influenza Typ A,B (EIA) Negative for flu a/b (NEGATIVE) 10/01/16 21:55 - Hospital Course Hospital Course: Hospitalist Discharge Note (Patient was seen and examined at 11 AM 10/04/16 [id number] with the help of Nurse Patel who translated in Icelandic) 75 year old female who was admitted on 10/01/16 for treatment of COPD Exacerbation and CHF Exacerbation. She was started on IV Methylprednisolone and Lasix. She continued to improve and is being discharged to home. Please see Assessement and Plan below and Discharge Insructions Currently upon FULL ROS: SOB and cough much improved Moved her bowels this morning without any issues No other complaints: NO chest pain, NO palpitations, Cough has improved, NO dysphagia/odynophagia, NO abdominal pain, NO n/v/d/c, NO burning/pain with urination, NO edema, NO paresthesias, NO new changes in vision/eye pain, NO new changes in hearing/ear pain HEENT: NCA, PERRLA, EOMI, NO cervical lymphadenopathy, NO thyromegaly, NO Pharyngeal Erythema/Exudate, Oral Mucosa and Nasal Turbinates are dry Cardio: Holosystolic Murmur in all bonilla Respiratory: End Expiratory Wheezing is NO LONGER PRESENT and the lungs are CTA B/L NO R/R/W GI: BS x 4, Soft, Central Obesity, NT, NO HSM, NO guarding/rebound tenderness Ext: Pulses are strong and equal, Capillary Refill is 2 seconds, NO edema Neuro: CN II throiugh XII Assessment and Plan: 1). COPD Exacerbation Pulmonology Dr. Ifeoma Copeland Q4H PRN SOB/Wheezing Singulair 10 mg PO 1x/day Rx for Prednisone Taper 2). Pneumonia Azithromycin 500 mg IV 1x/day (10/02/16) Ceftriaxone 1 gm IV 1x/day (10/02/16) Mucinex 600 mg PO Q12H Blood Culture is negative to date Influenza Negative Chest X Ray official report did not show any consolidations therefore no Rx for home 3). CHF Diastolic Dysfunction Exacerbation Chest X Ray shows mild pulmonary vascular congestion ProBNP 5,680 upon admission 2D Echocardiogram 02/27/16 showed EF 40-45% Lasix 40 mg IV 1x/day given while in patient Zestril 10 mg PO 1x/day Cardiology Dr. Khan 4). Anemia of Chronic Disease Stable HgB/Hct Monitor 5). DM 2 Januvia 100 mg PO 1x/day Glucotrol XL 5 mg PO 1x/day Metformin 850 mg PO 2x/day F/U HgBA1C 6). HLD Lipitor 10 mg PO QHS 7). Depression Zoloft 10 mg PO QHS 8). Prophylactic Measures Lovenox 40 mg IV SQ 1x/day Protonix 40 mg PO 1x/day Vitamin D 50,000 Units once a week The following insructions were explained to patient: 1). You must schedule follow up with your primary care physician Dr. 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 The following hand written prescription was given to you: Prednisone 10 mg to be take in the following manner: 5 tablets by mouth 1x/day on 10/05/16 4 tablets by mouth 1x/day on 10/06/16 3 tablets by mouth 1x/day on 10/07/16 2 tablets by mouth 1x/day on 10/08/16 1 tablet by mouth 1x/day on 10/09/16 5). You must weigh yourself everyday and if there is an increase in 5 pounds or more you must call your primary care physician to notify him. 6). Please bring a copy of this document with you to your appointment with Dr. Duran. Carlos Gauthier D.O. Discharge Exam - Head Exam Head Exam: ATRAUMATIC, NORMAL INSPECTION, NORMOCEPHALIC Discharge Plan - Discharge Medications Prescriptions: Mometasone/Formoterol [Dulera 200 Mcg/5 Mcg Inhaler] 13 gm INH Q12H #1 hfa.aer.ad SITagliptin [Januvia] 100 mg PO DAILY #30 tab Potassium Chloride [K-Dur 20 mEq ER Tab] 20 meq PO DAILY #30 tab Furosemide [Lasix] 20 mg PO DAILY #30 tab Atorvastatin [Lipitor] 10 mg PO DAILY #30 tab Omeprazole 20 mg PO BID #60 capsule. Montelukast [Singulair] 10 mg PO DAILY #30 tab Lisinopril [Zestril] 10 mg PO DAILY #30 tab Sertraline [Zoloft] 100 mg PO HS #30 tab Glimepiride [amaRYL] 2 mg PO BID #60 tab metFORMIN [glucOPHAGE] 850 mg PO BID #60 tab predniSONE [predniSONE Tab] 10 mg PO DAILY #15 tab - Follow Up Plan Condition: STABLE Disposition: HOME/ ROUTINE Instructions: Heart Failure (DC), Heart Failure (GEN), Pacemaker (DC), Pacemaker (GEN), Pulmonary Edema (DC), Pulmonary Edema (GEN), Ascites (DC), Ascites (GEN), Hypertension (DC), Hypertension (GEN)
[2016-10-04 12:29] VITALS: BP 137/62; PULSE 81; RESP 18; O2SAT 98
--- NOTE | 2016-10-04 15:35 | PN ---
DATE: 10/04/2016 The patient denies any chest pain. Shortness of breath and wheezing have improved. PHYSICAL EXAMINATION: VITAL SIGNS: Blood pressure 137/62, heart rate 81, temperature 98.1, respirations 18. HEENT: Pale conjunctivae. CHEST: Minimal rhonchi. HEART: S1, S2 regular. EXTREMITIES: Trace leg edema. LABORATORIES: Today's hemoglobin and hematocrit are 8.6 and 27.6. White count and platelet count ar e within normal limits. Today's SMA-7 is within normal limits except for glucose of 110 and BUN of 2 6. ASSESSMENT: 1. Exacerbation of chronic obstructive lung disease. 2. Systolic heart failure which has improved. 3. Modest pulmonary hypertension. 4. Anemia. RECOMMENDATIONS: Continue current IV Zithromax and IV Rocephin. Continue Lasix at 40 mg intravenous once a day, Solu-Medrol 40 mg intravenously daily. Zestril at 10 mg once a day. The case discussed with Dr. Carlos Gauthier. The patient can be discharged from the cardiac point on oral Lasix and Zestr il and initiating an oral beta deysi agent. Tawanda Khan MD cc: [id number] TT: 10/04/2016 15:34:40 Confirmation # [id number] Dictation # [id number] mn
[2016-10-05] MEDS ORDERED: methylPREDNISolone 40 MG in Sodium Chloride 0.9% 50 ML IVPB SCH (09:00)
[2016-10-05] MEDS ORDERED: Potassium Chloride 20 mEq ER Tab PO SCH (09:00)
== END 2016-10-04 15:30 | disposition home health service (06) | DRG 291 ==
LOC: H.ER 21:25 → H.ERHOLD 23:37 → H.TEL 10-02 03:09
PROVIDERS: ADMIT Internal Medicine; ATTEND Internal Medicine
DX: I11.0 Hypertensive heart disease with heart failure (principal); J18.9 Pneumonia, unspecified organism; I27.2 Other secondary pulmonary hypertension; Z99.81 Dependence on supplemental oxygen; J44.0 Chronic obstructive pulmonary disease with (acute) lower respiratory infection; E11.9 Type 2 diabetes mellitus without complications; D63.8 Anemia in other chronic diseases classified elsewhere; F32.9 Major depressive disorder, single episode, unspecified; J44.1 Chronic obstructive pulmonary disease with (acute) exacerbation; E78.5 Hyperlipidemia, unspecified; E66.9 Obesity, unspecified; Z68.39 Body mass index [BMI] 39.0-39.9, adult; I50.33 Acute on chronic diastolic (congestive) heart failure; J45.909 Unspecified asthma, uncomplicated

== ENCOUNTER 2017-10-07 17:14 | Observation (INO) | payer OTHER ==
[2017-10-07 17:14] VITALS: BMI 36.6
[2017-10-07] MEDS ORDERED: Albuterol-Ipratrop 3 mg / 0.5 (3 ml) UD IH STA (17:42)
[2017-10-07] MEDS ORDERED: Albuterol-Ipratrop 3 mg / 0.5 (3 ml) UD INH STA (17:42)
[2017-10-07] MEDS ORDERED: Sodium Chloride 0.9% 1,000 ML IV SCH (17:45)
--- NOTE | 2017-10-07 17:48 | ED PDOC ---
HPI: SOB/CHF/COPD Time Seen by Provider: 10/07/17 17:29 Chief Complaint (Nursing): Shortness Of Breath Chief Complaint (Provider): Dyspnea History Per: Patient History/Exam Limitations: no limitations Onset/Duration Of Symptoms: Days (3) Current Symptoms Are (Timing): Still Present Associated Symptoms: denies: Leg/Calf Pain Additional Complaint(s): Pt. with cough, congestion, dyspnea. Weakness all over. No chest pain, abd pain, nausea, vomit, diarrhea, headaches, dizziness. No fever. Feels like her copd. Past Medical History Vital Signs: Last Vital Signs Temp 100 F H 10/07/17 17:21 Pulse 101 H 10/07/17 17:21 Resp 16 10/07/17 17:45 BP 131/71 10/07/17 17:21 Pulse Ox 100 10/07/17 17:54 - Medical History PMH: Asthma, COPD, Diabetes, HTN, Hypercholesterolemia Denies: Chronic Kidney Disease - Surgical History Surgical History: Cholecystectomy - Family History Family History: States: Unknown Family Hx - Social History Alcohol: None Drugs: Denies - Home Medications Home Medications: Ambulatory Orders Medication Instructions Recorded Acetaminophen with Codeine 1 tab PO Q4 PRN 10/02/16 [Tylenol with Codeine #3 Tablet] Atorvastatin [Lipitor] 10 mg PO DAILY 10/02/16 Ibuprofen [Motrin Tab] 10/02/16 Lisinopril [Zestril] 10 mg PO DAILY 10/02/16 Loperamide [Imodium] 10/02/16 Montelukast [Singulair] 10 mg PO HS 10/02/16 SITagliptin [Januvia] 100 mg PO DAILY 10/02/16 Sertraline [Zoloft] 100 mg PO DAILY 10/02/16 metFORMIN [glucOPHAGE] 850 mg PO BID 10/02/16 Atorvastatin [Lipitor] 10 mg PO DAILY #30 tab 10/04/16 Ergocalciferol [Drisdol 50,000 1 cap PO QWK cap 10/04/16 Intl Units Cap] Furosemide [Lasix] 20 mg PO DAILY #30 tab 10/04/16 Glimepiride [amaRYL] 2 mg PO BID #60 tab 10/04/16 Lisinopril [Zestril] 10 mg PO DAILY #30 tab 10/04/16 Mometasone/Formoterol [Dulera 200 13 gm INH Q12H #1 hfa.aer.ad 10/04/16 Mcg/5 Mcg Inhaler] Montelukast [Singulair] 10 mg PO DAILY #30 tab 10/04/16 Omeprazole 20 mg PO BID #60 capsule. 10/04/16 Potassium Chloride [K-Dur 20 mEq 20 meq PO DAILY #30 tab 10/04/16 ER Tab] SITagliptin [Januvia] 100 mg PO DAILY #30 tab 10/04/16 Sertraline [Zoloft] 100 mg PO HS #30 tab 10/04/16 metFORMIN [glucOPHAGE] 850 mg PO BID #60 tab 10/04/16 predniSONE [predniSONE Tab] 10 mg PO DAILY #15 tab 10/04/16 - Allergies Allergies/Adverse Reactions: Allergies Allergy/AdvReac Type Severity Reaction Status Date / Time No Known Allergies Allergy Verified 05/15/15 14:01 Review of Systems ROS Statement: Except As Marked, All Systems Reviewed And Found Negative Constitutional: Positive for: Weakness ENT: Positive for: Nose Congestion Respiratory: Positive for: Cough, Shortness of Breath, Sputum (clear) Neurological: Positive for: Weakness Physical Exam - Reviewed Nursing Documentation Reviewed: Yes Vital Signs Reviewed: Yes - Physical Exam Appears: Positive for: Non-toxic, No Acute Distress Head Exam: Positive for: ATRAUMATIC, NORMAL INSPECTION, NORMOCEPHALIC Skin: Positive for: Normal Color, Warm, DRY Eye Exam: Positive for: EOMI, Normal appearance, PERRL ENT: Positive for: Nasal Congestion. Negative for: Pharyngeal Erythema Neck: Positive for: Normal, Painless ROM, Supple Cardiovascular/Chest: Positive for: Regular Rate, Rhythm. Negative for: Edema Respiratory: Positive for: Decreased Breath Sounds. Negative for: Accessory Muscle Use, Wheezing (mild end expiratory b/l) Gastrointestinal/Abdominal: Positive for: Normal Exam, Bowel Sounds, Soft. Negative for: Tenderness Back: Positive for: Normal Inspection. Negative for: L CVA Tenderness, R CVA Tenderness Extremity: Positive for: Normal ROM. Negative for: Tenderness, Pedal Edema Neurologic/Psych: Positive for: Alert, Oriented - ECG ECG Rhythm: Positive for: Normal QRS, Sinus Rhythm, Nonspecific Changes O2 Sat by Pulse Oximetry: 100 Pulse Ox Interpretation: Normal - Radiology X-Ray: Interpreted by Tx X-Ray Interpretation: Cardiomegaly, Other (pulm vascular congestion) - Progress ED Course And Treament: 184: Stable. AAOx3. Spoke with Dr. Kumar. WIll admit tele. CHF exac. Disposition - Clinical Impression Clinical Impression: CHF (congestive heart failure), COPD exacerbation - Patient ED Disposition Is Patient to be Admitted: Yes Counseled Patient/Family Regarding: Studies Performed, Diagnosis - Disposition Disposition Time: 18:43 Condition: FAIR - Pt Status Changed To: Hospital Disposition Of: Inpatient - Admit Certification Admit to Inpatient:: After my assessment, the patient will require hospitalization for at least two midnights. This is because of the severity of symptoms shown, intensity of services needed, and/or the medical risk in this patient being treated as an outpatient. - POA Present On Arrival: None
[2017-10-07 18:17] LABS: ABG ALLEN TEST YES; ARTERIAL BLOOD GAS HCO3 27.1 mmol/L (21-28); ARTERIAL BLOOD GAS O2 SAT 99.4 % (95-98); ARTERIAL BLOOD GAS PCO2 47 mm/Hg (35-45); ARTERIAL BLOOD GAS PH 7.39 (7.35-7.45); ARTERIAL BLOOD GAS PO2 78 mm/Hg (80-100); ARTERIAL BLOOD GAS TCO2 29.9 mmol/L (22-28)
[2017-10-07 18:25] LABS: BASO % 0.3 % (0.0-2.0); EOS % 0.1 % (0.0-4.0); LYMPH # 1.1 K/uL (1.0-4.3); LYMPH % 11.1 % (20.0-40.0); MEAN CORPUSCULAR HEMOGLOBIN 26.4 pg (27.0-31.0); MEAN CORPUSCULAR HGB CONC 31.6 g/dL (33.0-37.0); MEAN PLATELET VOLUME 9.3 fl (7.2-11.7); MONO # 0.6 K/uL (0.0-0.8); MONO % 6.1 % (0.0-10.0); NEUT # 8.5 K/uL (1.8-7.0); NEUT % 82.4 % (50.0-75.0); RBC 3.4 Mil/uL (3.80-5.20); RED CELL DISTRIBUTION WIDTH 17.4 % (11.5-14.5); WHITE BLOOD COUNT 10.3 K/uL (4.8-10.8)
[2017-10-07] MEDS ORDERED: Albuterol-Ipratrop 3 mg / 0.5 (3 ml) UD ONE (18:26)
[2017-10-07 18:41] LABS: ALB/GLOB RATIO 1.1 (1.0-2.1); ALBUMIN 3.6 g/dL (3.5-5.0); ALT/SGPT 14 U/L (9-52); AST/SGOT 21 U/L (14-36); BLOOD UREA NITROGEN 12 mg/dl (7-17); GFR AFRICAN-AMERICAN > 60; GFR NON-AFRICAN AMERICAN > 60
[2017-10-07 18:53] LABS: B-TYPE NATRIURETIC PEPTIDE 6610 pg/ml (0-900)
[2017-10-07 18:54] LABS: MEAN CELL VOLUME 83.4 fl (81.0-99.0)
--- NOTE | 2017-10-07 19:18 | CP.PCM.HP ---
History of Present Illness - History of Present Illness History of Present Illness: 76 yo female with history of DM2, HTN, COPD and CHF came in because of SOB associated with chest congestion and coughing productive with whitish sputum since 1 week ago progressively getting worse. Denied fever or chills. Present on Admission - Present on Admission Any Indicators Present on Admission: No History of DVT/PE: No History of Uncontrolled Diabetes: No Urinary Catheter: No Decubitus Ulcer Present: No Review of Systems - Review of Systems All systems: reviewed and no additional remarkable complaints except (aside from those mentioned above, 12 point system review were negative by me) Past Patient History - Past Medical History & Family History Past Medical History?: Yes - Past Social History Smoking Status: Never Smoked (but exposed to who is a chronic smoker) Alcohol: None Drugs: Denies Home Situation {Lives}: With Family - CARDIAC Hx Hypercholesterolemia: Yes Hx Hypertension: Yes - PULMONARY Hx Asthma: Yes Hx Chronic Obstructive Pulmonary Disease (COPD): Yes - NEUROLOGICAL Hx Neurological Disorder: No - HEENT Hx HEENT Problems: No - RENAL Hx Chronic Kidney Disease: No - ENDOCRINE/METABOLIC Hx Diabetes Mellitus Type 2: Yes - HEMATOLOGICAL/ONCOLOGICAL Hx Blood Disorders: No - INTEGUMENTARY Hx Dermatological Problems: No - MUSCULOSKELETAL/RHEUMATOLOGICAL Hx Falls: No - GASTROINTESTINAL Hx Gastrointestinal Disorders: No - GENITOURINARY/GYNECOLOGICAL Hx Genitourinary Disorders: No - PSYCHIATRIC Hx Psychophysiologic Disorder: Yes Hx Substance Use: No - SURGICAL HISTORY Hx Cholecystectomy: Yes - ANESTHESIA Hx Anesthesia: Yes Hx Anesthesia Reactions: No Meds Allergies/Adverse Reactions: Allergies Allergy/AdvReac Type Severity Reaction Status Date / Time No Known Allergies Allergy Verified 05/15/15 14:01 Physical Exam - Constitutional Appears: No Acute Distress - Head Exam Head Exam: ATRAUMATIC - Eye Exam Eye Exam: absent: Scleral icterus - ENT Exam ENT Exam: Mucous Membranes Moist - Neck Exam Neck exam: Negative for: Meningismus - Respiratory Exam Respiratory Exam: Decreased Breath Sounds. absent: Wheezes, Respiratory Distress - Cardiovascular Exam Cardiovascular Exam: Tachycardia - GI/Abdominal Exam GI & Abdominal Exam: Soft. absent: Tenderness - Rectal Exam Rectal Exam: Deferred - Extremities Exam Extremities exam: Negative for: pedal edema - Back Exam Back exam: absent: tenderness - Neurological Exam Neurological exam: Alert, Oriented x3 - Psychiatric Exam Psychiatric exam: Normal Affect - Skin Skin Exam: Dry, Intact Results - Vital Signs Recent Vital Signs: Last Vital Signs Temp 100 F H 10/07/17 17:21 Pulse 101 H 10/07/17 17:21 Resp 16 10/07/17 17:45 BP 131/71 10/07/17 17:21 Pulse Ox 100 10/07/17 18:59 - Labs Result Diagrams: 10/07/17 18:10 10/07/17 18:10 Labs: Laboratory Results - last 24 hr 10/07/17 10/07/17 10/07/17 18:00 18:10 18:10 WBC 10.3 RBC 3.40 L Hgb 9.0 L Hct 28.3 L MCV 83.4 D MCH 26.4 L MCHC 31.6 L RDW 17.4 H Plt Count 171 MPV 9.3 Neut % (Auto) 82.4 H Lymph % (Auto) 11.1 L Brule % (Auto) 6.1 Eos % (Auto) 0.1 Baso % (Auto) 0.3 Neut # (Auto) 8.5 H Lymph # (Auto) 1.1 Brule # (Auto) 0.6 Eos # (Auto) 0.0 Baso # (Auto) 0.0 pCO2 47 H pO2 78 L HCO3 27.1 ABG pH 7.39 ABG Total CO2 29.9 H ABG O2 Saturation 99.4 H ABG Base Excess 2.8 Qasim Test Yes ABG Potassium 3.5 L A-a O2 Difference 13.0 Sodium 139.0 142 Chloride 106.0 102 Glucose 169 H Lactate 0.5 L FiO2 21.0 Potassium 3.7 Carbon Dioxide 24 Anion Gap 20 BUN 12 Creatinine 0.6 L Est GFR ( Amer) > 60 Est GFR (Non-Af Amer) > 60 Random Glucose 147 H Calcium 9.0 Phosphorus 3.3 Magnesium 1.6 Total Bilirubin 1.0 AST 21 ALT 14 Alkaline Phosphatase 61 Troponin I < 0.0120 NT-Pro-B Natriuret Pep 6610 H Total Protein 6.8 Albumin 3.6 Globulin 3.2 Albumin/Globulin Ratio 1.1 Arterial Blood Potassium 3.5 L Influenza Typ A,B (EIA) 10/07/17 18:10 WBC RBC Hgb Hct MCV MCH MCHC RDW Plt Count MPV Neut % (Auto) Lymph % (Auto) Brule % (Auto) Eos % (Auto) Baso % (Auto) Neut # (Auto) Lymph # (Auto) Brule # (Auto) Eos # (Auto) Baso # (Auto) pCO2 pO2 HCO3 ABG pH ABG Total CO2 ABG O2 Saturation ABG Base Excess Qasim Test ABG Potassium A-a O2 Difference Sodium Chloride Glucose Lactate FiO2 Potassium Carbon Dioxide Anion Gap BUN Creatinine Est GFR ( Amer) Est GFR (Non-Af Amer) Random Glucose Calcium Phosphorus Magnesium Total Bilirubin AST ALT Alkaline Phosphatase Troponin I NT-Pro-B Natriuret Pep Total Protein Albumin Globulin Albumin/Globulin Ratio Arterial Blood Potassium Influenza Typ A,B (EIA) Negative for flu a/b Assessment & Plan - Assessment and Plan (Free Text) Assessment: 76 yo female with history of DM2, HTN, COPD and CHF came in because of SOB associated with chest congestion and coughing productive with whitish sputum since 1 week ago progressively getting worse. Denied fever or chills. 1. CHF exacerbation Lasix 40mg IV Lisinopril 10mg PO daily serial Troponin and EKG ECHO 2. COPD continue SoluMedrol 40mg IV q 8hrs Duoneb via nebulizer q 4hrs prn for SOB/wheezing Montelukast 10mg PO HS 3. DM2 BS controlled Amaryl 2mg PO BID Metformin 850mg PO BID accuchek ACHS HgA1C, BMP in am 4. HTN BP stable continue Lisinopril 10mg PO daily
[2017-10-07 19:41] LABS: INR 1.2 (0.9-1.2); PARTIAL THROMBOPLASTIN TIME 30.7 Seconds (25.6-37.1); PROTHROMBIN TIME 12.8 Seconds (9.8-13.1)
[2017-10-07] MEDS ORDERED: Ergocalciferol 50,000 Intl Units Cap PO SCH (19:45)
[2017-10-07] MEDS: Fluticasone-Salmeterol 250-50mcg Diskus IH SCH (21:49)
[2017-10-08 06:10] LABS: BASO % 0.1 % (0.0-2.0); HEMOGLOBIN 8.4 g/dL (12.0-16.0); LYMPH # 0.5 K/uL (1.0-4.3); LYMPH % 5.6 % (20.0-40.0); MEAN CORPUSCULAR HEMOGLOBIN 26.6 pg (27.0-31.0); MONO # 0.1 K/uL (0.0-0.8); MONO % 1.1 % (0.0-10.0); NEUT % 93.2 % (50.0-75.0); PLATELET COUNT 201 K/uL (130-400); RBC 3.16 Mil/uL (3.80-5.20); RED CELL DISTRIBUTION WIDTH 17.7 % (11.5-14.5); WHITE BLOOD COUNT 8.6 K/uL (4.8-10.8)
[2017-10-08 06:19] LABS: BLOOD UREA NITROGEN 15 mg/dl (7-17); CALCIUM 9.1 mg/dL (8.4-10.2); GFR AFRICAN-AMERICAN > 60; GFR NON-AFRICAN AMERICAN > 60
--- NOTE | 2017-10-08 08:29 | RAD ---
HISTORY: Sepsis Patient COMPARISON: Portable chest 10/01/2016. FINDINGS: LUNGS: Improved history volume is identified. Diminished left basilar atelectasis or infiltrate with limited left pleural effusion evident. No right-sided infiltrate or pleural effusion. No pneumothorax bilaterally. PLEURA: As above. CARDIOVASCULAR: Prominent cardiac silhouette remains with mild pulmonary venous congestion identified once again. Borderline improvement. OSSEOUS STRUCTURES: No significant abnormalities. VISUALIZED UPPER ABDOMEN: Normal. OTHER FINDINGS: None. IMPRESSION: Marginally improved CHF. Left basilar atelectasis or infiltrate is improved and minimal left pleural effusions identified this time. Stable cardiomegaly.
[2017-10-08] MEDS ORDERED: Enoxaparin 40 mg Syringe SC SCH (09:00)
[2017-10-08] MEDS ORDERED: GlipiZIDE 10 mg SR Tab PO SCH (09:00)
[2017-10-08 10:40] LABS: ANISOCYTOSIS SLIGHT; LYMPHOCYTE 4 % (20-50); MONOCYTE 1 % (0-10); NEUTROPHIL 95 % (42-75); PLATELET ESTIMATE NORMAL (NORMAL); TOTAL CELLS COUNTED 100
[2017-10-08 10:41] LABS: HYPOCHROMIC MODERATE; OVALOCYTES SLIGHT; SCHISTOCYTES SLIGHT; TEARDROP CELLS SLIGHT; TOXIC GRANULATION PRESENT
[2017-10-08 12:28] VITALS: RESP 20
[2017-10-08] MEDS: Fluticasone-Salmeterol 250-50mcg Diskus IH SCH (12:40)
--- NOTE | 2017-10-08 13:04 | CON ---
DATE: CARDIOLOGY CONSULTATION REPORT REASON FOR CONSULTATION: Shortness of breath. HISTORY OF PRESENT ILLNESS: The patient is a 76-year-old female who has a history of chronic obstructive lung disease on nasal O2 at home, history of systolic heart failure with ejection fracture in the range of 40% to 45% on an echocardiography study performed in 02/2016, history of hypertension and diabetes mellitus. The patient is unaware of any history of heart attack in the past, and does not know if she ever underwent cardiac catheterization or not. She only follows with the primary physician. The patient presented because of shortness of breath and productive cough. She denies any fever or chills. The patient denies any retrosternal chest pain. SOCIAL HISTORY: The patient is a nonsmoker, but her is to be heavy smoker. She is . 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 MEDICATIONS: The patient current medications are Advair one puff every 12 hours, Glucophage 850 mg twice a day, glipizide 10 mg once a day, Januvia 100 mg once a day, Lasix 40 mg intravenously once a day, Lipitor 10 mg once a day, Lovenox 40 mg subcutaneous once a day, Zestril 10 mg once a day, Zoloft 100 mg at bedtime, and Singulair 10 mg p.o. daily. PAST MEDICAL HISTORY: Hypertension, diabetes mellitus, history of falls and left hip fracture as well as left forearm fracture. PHYSICAL EXAMINATION: GENERAL: The patient is an elderly female who does not appear to be in acute distress. VITAL SIGNS: Blood pressure of 139/63, heart rate of 75, temperature of 97.2, and respirations of 16. HEENT: Normocephalic. CHEST: Bibasilar rhonchi. HEART: S1 and S2 regular and distant. ABDOMEN: Soft. EXTREMITIES: Trace leg edema. LABORATORY DATA: Today's hemoglobin and hematocrit are 8.4 and 26.3. White count and platelet count are within normal limits. Today's SMA-7 is within normal limits except for glucose of 169. Two sets of troponins are negative. ProBNP 6610. PT, PTT and INR are within normal limits. Influenza type A and B serology is negative. IMAGING DATA: Chest x-ray revealed borderline cardiomegaly, consider right lower lobe infiltrate and moderate CHF. EKG revealed sinus rhythm nonspecific Q-wave changes. ASSESSMENT: 1. Exacerbation of congestive heart failure. 2. Chronic obstructive lung disease. 3. Consider right lower lobe pneumonia. 4. Anemia. RECOMMENDATIONS: Case was discussed with referring physician Dr. Cho. Continue current Advair, glipizide 10 mg daily, Lasix 40 mg intravenously once daily, Lipitor 10 mg once a day, subcutaneous Lovenox 40 mg once a day, and Zestril 10 mg once a day. I will review the echocardiographic study, which is scheduled to be done today. May consider chest CT scan without contrast or initiate intravenous antibiotic therapy for presumptive right lower lobe pneumonia. Tawanda Khan MD
--- NOTE | 2017-10-08 13:54 | CP.PCM.DIS ---
Provider - Provider Date of Admission: 10/07/17 18:44 Attending physician: Bharat Kumar MD Consults: Dr Khan Time Spent in preparation of Discharge (in minutes): 25 Diagnosis - Discharge Diagnosis (1) CHF (congestive heart failure) Status: Acute Comment: acute on chronic CHF, systolic. improved with IV Lasix. CXray showed questionable infiltrate or atelectasis on left lung base. Zithromax 500mg PO daily x 5 days. Troponins negative for ischemia (2) COPD exacerbation Status: Chronic Comment: continue bronchodilator and steroid (3) Diabetes mellitus Status: Chronic Comment: continue Amaryl, Metformin and Januvia. BS controlled (4) HTN (hypertension) Status: Chronic Comment: BP controlled. continue Lisinopril and Lasix Hospital Course - Lab Results Lab Results: Most Recent Lab Values WBC 8.6 K/uL (4.8-10.8) 10/08/17 04:20 RBC 3.16 Mil/uL (3.80-5.20) L 10/08/17 04:20 Hgb 8.4 g/dL (12.0-16.0) L 10/08/17 04:20 Hct 26.3 % (34.0-47.0) L 10/08/17 04:20 MCV 83.0 fl (81.0-99.0) 10/08/17 04:20 MCH 26.6 pg (27.0-31.0) L 10/08/17 04:20 MCHC 32.0 g/dL (33.0-37.0) L 10/08/17 04:20 RDW 17.7 % (11.5-14.5) H 10/08/17 04:20 Plt Count 201 K/uL (130-400) 10/08/17 04:20 MPV 10.0 fl (7.2-11.7) 10/08/17 04:20 Neut % (Auto) 93.2 % (50.0-75.0) H 10/08/17 04:20 Lymph % (Auto) 5.6 % (20.0-40.0) L 10/08/17 04:20 [place] % (Auto) 1.1 % (0.0-10.0) 10/08/17 04:20 Eos % (Auto) 0.0 % (0.0-4.0) 10/08/17 04:20 Baso % (Auto) 0.1 % (0.0-2.0) 10/08/17 04:20 Neut # (Auto) 8.0 K/uL (1.8-7.0) H 10/08/17 04:20 Lymph # (Auto) 0.5 K/uL (1.0-4.3) L 10/08/17 04:20 [place] # (Auto) 0.1 K/uL (0.0-0.8) 10/08/17 04:20 Eos # (Auto) 0.0 K/uL (0.0-0.7) 10/08/17 04:20 Baso # (Auto) 0.0 K/uL (0.0-0.2) 10/08/17 04:20 Neutrophils % (Manual) 95 % (42-75) H 10/08/17 04:20 Lymphocytes % (Manual) 4 % (20-50) L 10/08/17 04:20 Monocytes % (Manual) 1 % (0-10) 10/08/17 04:20 Toxic Granulation Present 10/08/17 04:20 Platelet Estimate Normal (NORMAL) 10/08/17 04:20 Hypochromasia (manual) Moderate 10/08/17 04:20 Anisocytosis (manual) Slight 10/08/17 04:20 Tear Drop Cells Slight 10/08/17 04:20 Ovalocytes Slight 10/08/17 04:20 Schistocytes Slight 10/08/17 04:20 PT 12.8 Seconds (9.8-13.1) 10/07/17 19:20 INR 1.2 (0.9-1.2) 10/07/17 19:20 APTT 30.7 Seconds (25.6-37.1) 10/07/17 19:20 pCO2 47 mm/Hg (35-45) H 10/07/17 18:00 pO2 78 mm/Hg (80-100) L 10/07/17 18:00 HCO3 27.1 mmol/L (21-28) 10/07/17 18:00 ABG pH 7.39 (7.35-7.45) 10/07/17 18:00 ABG Total CO2 29.9 mmol/L (22-28) H 10/07/17 18:00 ABG O2 Saturation 99.4 % (95-98) H 10/07/17 18:00 ABG Base Excess 2.8 mmol/L (-2.0-3.0) 10/07/17 18:00 Qasim Test Yes 10/07/17 18:00 ABG Potassium 3.5 mmol/L (3.6-5.2) L 10/07/17 18:00 A-a O2 Difference 13.0 mm/Hg 10/07/17 18:00 Sodium 139.0 mmol/L (132-148) 10/07/17 18:00 Chloride 106.0 mmol/L (98-107) 10/07/17 18:00 Glucose 169 mg/dL (65-105) H 10/07/17 18:00 Lactate 0.5 mmol/L (0.7-2.1) L 10/07/17 18:00 FiO2 21.0 % 10/07/17 18:00 Sodium 144 mmol/l (132-148) 10/08/17 04:20 Potassium 4.3 MMOL/L (3.6-5.0) 10/08/17 04:20 Chloride 102 mmol/L (98-107) 10/08/17 04:20 Carbon Dioxide 28 mmol/L (22-30) 10/08/17 04:20 Anion Gap 18 (10-20) 10/08/17 04:20 BUN 15 mg/dl (7-17) 10/08/17 04:20 Creatinine 0.7 mg/dl (0.7-1.2) 10/08/17 04:20 Est GFR ( Amer) > 60 10/08/17 04:20 Est GFR (Non-Af Amer) > 60 10/08/17 04:20 POC Glucose (mg/dL) 131 mg/dL (65-110) H 10/08/17 10:54 Random Glucose 169 mg/dL (65-105) H 10/08/17 04:20 Calcium 9.1 mg/dL (8.4-10.2) 10/08/17 04:20 Phosphorus 3.3 mg/dl (2.5-4.5) 10/07/17 18:10 Magnesium 1.6 MG/DL (1.6-2.3) 10/07/17 18:10 Total Bilirubin 1.0 mg/dl (0.2-1.3) 10/07/17 18:10 AST 21 U/L (14-36) 10/07/17 18:10 ALT 14 U/L (9-52) 10/07/17 18:10 Alkaline Phosphatase 61 U/L (38-126) 10/07/17 18:10 Troponin I < 0.0120 ng/mL (0.00-0.120) 10/08/17 10:40 NT-Pro-B Natriuret Pep 6610 pg/ml (0-900) H 10/07/17 18:10 Total Protein 6.8 G/DL (6.3-8.2) 10/07/17 18:10 Albumin 3.6 g/dL (3.5-5.0) 10/07/17 18:10 Globulin 3.2 gm/dL (2.2-3.9) 10/07/17 18:10 Albumin/Globulin Ratio 1.1 (1.0-2.1) 10/07/17 18:10 Arterial Blood Potassium 3.5 mmol/L (3.6-5.2) L 10/07/17 18:00 Influenza Typ A,B (EIA) Negative for flu a/b (NEGATIVE) 10/07/17 18:10 - Hospital Course Hospital Course: 76 yo female with history of DM2, HTN, COPD and CHF came in because of SOB associated with chest congestion and coughing productive with whitish sputum. Lasix 40mg IV was given plus IV SoluMedrol. Patient claimed improvement. The next day patient requested that she be discharged since she felt better and had improved. Cardiology consult, Dr Khan agreed. Official ECHO reading to follow. Troponins were negative for ischemic events. Discharge Exam - Head Exam Head Exam: ATRAUMATIC - Eye Exam Eye Exam: absent: Scleral icterus - ENT Exam ENT Exam: Mucous Membranes Moist - Respiratory Exam Respiratory Exam: Decreased Breath Sounds, Rales (on left lung base). absent: Prolonged Expiratory Phase, Rhonchi, Wheezes - Cardiovascular Exam Cardiovascular Exam: REGULAR RHYTHM, +S1, +S2 - GI/Abdominal Exam GI & Abdominal Exam: Soft. absent: Tenderness - Rectal Exam Rectal Exam: Deferred - Back Exam Back exam: NORMAL INSPECTION - Neurological Exam Neurological exam: Alert, Oriented x3 - Psychiatric Exam Psychiatric exam: Normal Affect - Skin Skin Exam: Dry, Intact Discharge Plan - Discharge Medications Prescriptions: Azithromycin [Zithromax] 500 mg PO DAILY #5 tab - Follow Up Plan Condition: FAIR Disposition: HOME/ ROUTINE
[2017-10-08 16:04] VITALS: BP 160/81; PULSE 68; TEMP 97.9; O2SAT 96
--- NOTE | 2017-10-08 20:29 | CARD ---
APPROVED REPORT EXAM: Two-dimensional and M-mode echocardiogram with Doppler and color Doppler. Other Information Quality : GoodRhythm : NSR INDICATION Congestive Heart Failure COPD 2D DIMENSIONS IVSd1.12 (0.7-1.1cm)LVDd5.69 (3.9-5.9cm) LVOT Diameter1.97 (1.8-2.4cm)PWd1.16 (0.7-1.1cm) IVSs1.34 (0.8-1.2cm)LVDs3.74 (2.5-4.0cm) FS (%) 34.4 %PWs1.48 (0.8-1.2cm) M-Mode DIMENSIONS Left Atrium (MM)5.78 (2.5-4.0cm)IVSd1.03 (0.7-1.1cm) Aortic Root2.97 (2.2-3.7cm)LVDd6.16 (4.0-5.6cm) Aortic Cusp Exc.1.56 (1.5-2.0cm)PWd0.94 (0.7-1.1cm) IVSs1.56 cmFS (%) 34 % LVDs4.06 (2.0-3.8cm)PWs1.25 cm Mitral Valve MV E Drrorhra087.4cm/sMV DECEL NLTT149xcJN A Jnwnfwbu979.6cm/s MV SBZ80lbR/A ratio0.9MVA (PHT)3.39cm2 TDI Lateral E' Peak V8.07cm/sMedial E' Peak V6.60cm/sE/Lateral E'16.3 E/Medial E'19.9 Pulmonary Valve PV Peak Tdwvdaxv791.1cm/s Tricuspid Valve TR Peak Yjpsekcv885fy/sRAP GQCDMHAC93clKqIL Peak Gr.25mmHg CLZM26mpXj LEFT VENTRICLE The left ventricle is normal size. There is normal left ventricular wall thickness. Left ventricle systolic function is low normal. The LVEF is 50% There is normal LV segmental wall motion. Transmitral Doppler flow pattern is Grade I-abnormal relaxation pattern. No left ventricle thrombus noted on this study. There is no ventricular septal defect visualized. There is no left ventricular aneurysm. There is no mass noted in the left ventricle. RIGHT VENTRICLE The right ventricle is normal size. There is normal right ventricular wall thickness. The right ventricular systolic function is normal. ATRIA The left atrium is moderately dilated. The right atrium size is normal. The interatrial septum is intact with no evidence for an atrial septal defect. AORTIC VALVE The aortic valve is moderately sclerotic. No aortic regurgitation is present. There is no aortic valvular stenosis. There is no aortic valvular vegetation. MITRAL VALVE The mitral valve is normal in structure. There is no evidence of mitral valve prolapse. There is no mitral valve stenosis. Mitral regurgitation is mild to moderate. TRICUSPID VALVE The tricuspid valve is normal in structure. There is moderate tricuspid regurgitation. Right ventricular systolic pressure is estimated at less than 30 mmHg. There is no tricuspid valve prolapse or vegetation. There is no tricuspid valve stenosis. PULMONIC VALVE The pulmonary valve is normal in structure. There is no pulmonic valvular regurgitation. There is no pulmonic valvular stenosis. GREAT VESSELS The aortic root is normal in size. The ascending aorta is normal in size. The IVC is normal in size and collapses >50% with inspiration. PERICARDIAL EFFUSION There is a trace loculated posterior pericardial effusion. There is no pleural effusion. <Conclusion> Low Normal Systolic Function LVEF 50% Mild to Moderate Mitral Regurgitation Aortic Valve Sclerosis Left Atrial Enlargement Impaired Diastolic Relaxation
--- NOTE | 2017-10-09 11:54 | CARD ---
APPROVED REPORT EKG Measurement Heart [id number] MI [id number] <Conclusion> Normal sinus rhythm Nonspecific T wave abnormality Abnormal ECG
== END 2017-10-08 15:40 | disposition home or self-care (01) ==
LOC: H.ER 17:14 → INTOOBSV 18:44 → H.ERHOLD 18:44 → H.TEL 20:29
DX: I11.0 Hypertensive heart disease with heart failure (principal); D64.9 Anemia, unspecified; E11.9 Type 2 diabetes mellitus without complications; E78.00 Pure hypercholesterolemia, unspecified; I50.22 Chronic systolic (congestive) heart failure; J44.1 Chronic obstructive pulmonary disease with (acute) exacerbation; Z79.84 Long term (current) use of oral hypoglycemic drugs; Z90.49 Acquired absence of other specified parts of digestive tract; Z91.81 History of falling; Z99.81 Dependence on supplemental oxygen
CPT/HCPCS: 36415; 36600; 71045; 80048; 80053; 82803; 82948; 83735; 83880; 84100; 84484; 85025; 85610; 85730; 87040; 87804; 93005; 93306; 94640; 96372; 96374; 96375; 96376; 99284; G0378; J1650; J1940; J2930; J7040

== ENCOUNTER 2018-04-08 10:37 | Observation (INO) | payer OTHER ==
[2018-04-08] MEDS ORDERED: Dextrose 50% SYRINGE Inj (50 ml) ONE ×2 (10:47→14:30)
[2018-04-08] MEDS ORDERED: Dextrose 50% SYRINGE Inj (50 ml) IVP ONE ×3 (10:53→14:44)
--- NOTE | 2018-04-08 11:04 | ED PDOC ---
HPI: Altered Mental Status Time Seen by Provider: 04/08/18 10:52 Chief Complaint (Nursing): Altered Mental Status Chief Complaint (Provider): AMS History Per: Patient, EMS Onset/Duration Of Symptoms: Hrs (today) Onset Of Symptoms: Cannot Confirm Onset Description Of Symptoms: Not At Baseline Exacerbating Factor(s): Diabetic Additional Complaint(s): Corine Espana is a 77 year old female, with a past medical history of diabetes and HTN, who was brought to the emergency department by EMS after homemaker found patient unresponsive in bed this morning. Last known well at 22:00 yesterday. On arrival, accucheck noted to be 20. x2 amps of Dextrose 50% administered with patient becoming [id number] with no focal deficits after administration. No further medical complaints. PMD: None provided. NIHSS Stroke Scale - Date/Time Evaluation Performed Date Performed: 04/08/18 When Was NIHSS Performed: Baseline - How Severe is the Stroke Level of Consciousness: 0=Alert LOC to Questions: 0=Both comments correct LOC to commands: 0=Obeys both correctly Best Gaze: 0=Normal Visual: 0=No visual loss Facial: 0=Normal Motor Arm - Left: 0=No drift Motor Arm - Right: 0=No drift Motor Leg - Left: 0=No drift Motor Leg - Right: 0=No drift Limb Ataxia: 0=Absent Sensory: 0=Normal Best Language: 0=No aphasia Dysarthia: 0=Normal articulation Extinction & Inattention (Neglect): 0=Normal, no object Score: 0 Past Medical History Reviewed: Historical Data, Nursing Documentation, Vital Signs Vital Signs: Last Vital Signs Temp 97 F L 04/08/18 10:44 Pulse 90 04/08/18 10:44 Resp 18 04/08/18 10:44 BP 173/98 H 04/08/18 10:44 Pulse Ox 99 04/08/18 10:44 - Medical History PMH: Asthma, COPD, Depression, Diabetes, HTN, Hypercholesterolemia Denies: Chronic Kidney Disease - Surgical History Surgical History: Cholecystectomy - Family History Family History: States: Unknown Family Hx - Home Medications Home Medications: Ambulatory Orders Medication Instructions Recorded Lisinopril [Zestril] 10 mg PO DAILY 10/02/16 Montelukast [Singulair] 10 mg PO HS 10/02/16 SITagliptin [Januvia] 100 mg PO DAILY 10/02/16 Sertraline [Zoloft] 100 mg PO DAILY 10/02/16 metFORMIN [glucOPHAGE] 850 mg PO BID 10/02/16 Furosemide [Lasix] 20 mg PO DAILY #30 tab 10/04/16 Glimepiride [amaRYL] 2 mg PO BID #60 tab 10/04/16 Omeprazole 20 mg PO BID #60 capsule. 10/04/16 Famotidine [Pepcid] 20 mg PO BID 04/08/18 Fluticasone/Salmeterol [Advair 1 puff IH Q12 04/08/18 250-50 Diskus] Folic Acid 1 mg PO DAILY 04/08/18 Iron Polysaccharide [Ferrex-150] 150 mg PO Q12 04/08/18 Levocetirizine Dihydrochloride 5 mg PO DAILY 04/08/18 [Xyzal] Pioglitazone [Actos] 15 mg PO DAILY 04/08/18 traMADol [Ultram] 50 mg PO Q6 PRN 04/08/18 - Allergies Allergies/Adverse Reactions: Allergies Allergy/AdvReac Type Severity Reaction Status Date / Time No Known Allergies Allergy Verified 05/15/15 14:01 Review of Systems ROS Statement: Except As Marked, All Systems Reviewed And Found Negative Neurological: Positive for: Altered Mental Status Physical Exam - Reviewed Nursing Documentation Reviewed: Yes Vital Signs Reviewed: Yes - Physical Exam Appears: Positive for: No Acute Distress Head Exam: Positive for: ATRAUMATIC, NORMOCEPHALIC Skin: Positive for: Normal Color, Warm, Dry Eye Exam: Positive for: Normal appearance, EOMI, PERRL Neck: Positive for: Painless ROM Cardiovascular/Chest: Positive for: Regular Rate, Rhythm. Negative for: Murmur Respiratory: Positive for: Normal Breath Sounds. Negative for: Respiratory Distress Gastrointestinal/Abdominal: Positive for: Normal Exam, Soft. Negative for: Tenderness, Guarding, Rebound Back: Positive for: Normal Inspection. Negative for: L CVA Tenderness, R CVA Tenderness, Vertebral Tenderness Extremity: Positive for: Normal ROM (upper and lower extremities). Negative for: Deformity, Swelling Neurologic/Psych: Positive for: Alert, Oriented (x3) - Laboratory Results Result Diagrams: 04/08/18 11:00 04/08/18 11:00 - ECG O2 Sat by Pulse Oximetry: 99 (RA) Pulse Ox Interpretation: Normal Medical Decision Making Medical Decision Making: Time: 10:52 Initial Plan: --EKG --CMP --CBC w/ differential --Chest portable [RAD] --Dextrose 5% 500 ml IV 80 mls/hr --Dextrose 50% Inj 50 ml IVP --Reevaluation ----- Scribe Attestation: Documented by Zhen Aburto, acting as a scribe for Demetrio Turner MD. Provider Scribe Attestation: All medical record entries made by the Scribe were at my direction and personally dictated by me. I have reviewed the chart and agree that the record accurately reflects my personal performance of the history, physical exam, medical decision making, and the department course for this patient. I have also personally directed, reviewed, and agree with the discharge instructions and disposition. Disposition - Clinical Impression Clinical Impression: Hypoglycemia, Anemia - Patient ED Disposition Is Patient to be Admitted: Yes - Disposition Disposition Time: 14:10 Condition: FAIR Forms: [employer] (Kyrgyz) - Pt Status Changed To: Hospital Disposition Of: Observation - POA Present On Arrival: None
[2018-04-08 11:11] LABS: BASO % 0.2 % (0.0-2.0); EOS % 0.5 % (0.0-4.0); HEMOGLOBIN 7.4 g/dL (12.0-16.0); LYMPH # 0.7 K/uL (1.0-4.3); LYMPH % 15.2 % (20.0-40.0); MEAN CELL VOLUME 76.8 fl (81.0-99.0); MEAN CORPUSCULAR HEMOGLOBIN 23.5 pg (27.0-31.0); MEAN CORPUSCULAR HGB CONC 30.6 g/dL (33.0-37.0); MEAN PLATELET VOLUME 7.8 fl (7.2-11.7); MONO # 0.2 K/uL (0.0-0.8); MONO % 5.3 % (0.0-10.0); NEUT # 3.6 K/uL (1.8-7.0); NEUT % 78.8 % (50.0-75.0); RBC 3.14 Mil/uL (3.80-5.20); RED CELL DISTRIBUTION WIDTH 17.7 % (11.5-14.5); WHITE BLOOD COUNT 4.5 K/uL (4.8-10.8)
[2018-04-08 11:22] LABS: ALT/SGPT 23 U/L (9-52); AST/SGOT 23 U/L (14-36); BLOOD UREA NITROGEN 13 mg/dl (7-17); CALCIUM 8.4 mg/dL (8.4-10.2); GFR NON-AFRICAN AMERICAN > 60
--- NOTE | 2018-04-08 11:56 | RAD ---
Date of service: 04/08/2018 HISTORY: cough COMPARISON: Frontal chest radiograph 10/07/2017. FINDINGS: LUNGS: No active pulmonary disease. Limited left basilar airspace disease has resolved. PLEURA: No significant pleural effusion identified, no pneumothorax apparent. Prior trace left pleural effusion is resolved. CARDIOVASCULAR: Stable cardiomegaly. No definite pulmonary vascular congestion. Prior pulmonary vascular congestion appears to have resolved. OSSEOUS STRUCTURES: No significant abnormalities. VISUALIZED UPPER ABDOMEN: Normal. OTHER FINDINGS: None. IMPRESSION: No interval acute cardiopulmonary disease appreciable. Prior pulmonary vascular congestion and left basilar airspace disease/pleural effusion appear to have resolved.
[2018-04-08] MEDS ORDERED: Sodium Chloride 0.9% 50 ML IV ONE (12:59)
[2018-04-08] MEDS ORDERED: Iohexol 300 100 ML IJ ONE (12:59)
--- NOTE | 2018-04-08 13:37 | CT ---
Date of service: 04/08/2018 PROCEDURE: CT Abdomen and Pelvis with contrast HISTORY: Abdominal pain. COMPARISON: None. TECHNIQUE: Intravenous contrast dose: 98 cc Omnipaque 300 Radiation dose: Total exam DLP = 906.15 mGy-cm. This CT exam was performed using one or more of the following dose reduction techniques: Automated exposure control, adjustment of the mA and/or kV according to patient size, and/or use of iterative reconstruction technique. FINDINGS: LOWER THORAX: Paraesophageal hiatal hernia resulting in virtually all of the stomach residing above the diaphragm. There is no evidence of gastric torsion. No pulmonary nodules or masses identified. Incompletely visualized cardiomegaly without pericardial effusion. LIVER: Unremarkable. No gross lesion or ductal dilatation. GALLBLADDER AND BILE DUCTS: Status post cholecystectomy. No abnormality is seen in the gallbladder fossa. PANCREAS: Unremarkable. No gross lesion or ductal dilatation. SPLEEN: Unremarkable. ADRENALS: Unremarkable. No mass. KIDNEYS AND URETERS: Unremarkable. No hydronephrosis. No solid mass. Incidental finding(s): Bilateral simple renal cysts VASCULATURE: Unremarkable. No aortic aneurysm. BOWEL: Constipation without fecal impaction or obstruction. APPENDIX: No abnormalities to suggest acute appendicitis. No right lower quadrant inflammatory processes identified. PERITONEUM: Unremarkable. No free fluid. No free air. LYMPH NODES: Unremarkable. No enlarged lymph nodes. BLADDER: Unremarkable. REPRODUCTIVE: Unremarkable. BONES: No acute fracture. OTHER FINDINGS: None. IMPRESSION: Large hiatal hernia. No evidence of gastric torsion or other associated abnormality. No acute findings related to/accounting for the clinical presentation. Additional benign and/or incidental findings described above.
--- NOTE | 2018-04-08 13:54 | CARD ---
APPROVED REPORT Date of service: 04/08/2018 EKG Measurement Heart [id number] SD 186P64 [id number] <Conclusion> Sinus rhythm with premature atrial complexes Nonspecific T wave abnormality Abnormal ECG
[2018-04-08] MEDS ORDERED: Dextrose 50% SYRINGE Inj (50 ml) IV PRN (15:21)
[2018-04-08] MEDS ORDERED: Glucagon Recombinant 1 mg Inj IM PRN (15:21)
--- NOTE | 2018-04-08 15:58 | CP.PCM.HP ---
<Igor Yancey - Last Filed: 04/08/18 15:49> History of Present Illness - History of Present Illness History of Present Illness: 77 y/o female with PMHx of Type II DM, HTN, HLD, and COPD was brought into the Emergency Department today due to episode of unresponsiveness at home. Patient's homemaker found the patient unresponsive in bed this morning, upon arrival to ER, patient was given D50 and became responsive and alert. At the time patient was evaluated in the ER by the inpatient team, she was AAOx3. Patient states she last recalls what happened last night prior to bed. Patient states she has not eaten today. Patient states she takes medications for Diabetes, however states she is not on Insulin. Patient states she is on home oxygen for her COPD. Patient complaints of dark stool, however denies F/N/V/abdominal pain/chest pain/palpitations. PMD: Dr. Duran PMHx: Type II DM, HTN, HLD, COPD, no history of [place] or stroke, chronic borderline systolic heart failure PSHx: Left Hip surgery, cholecystectomy, negative C-sections unknown hx of hysterectomy Allergies: NKDA Social Hx: denies history of smoking, positive hx of second hand smoking Pharmacy: [facility], [place] Present on Admission - Present on Admission Any Indicators Present on Admission: No Review of Systems - Constitutional Constitutional: Weakness. absent: Chills, Excessive Sweating, Fever, Malaise - EENT Eyes: absent: Blurred Vision, Change in Vision, Loss of Vision Ears: absent: Abnormal Hearing, Dizziness Nose/Mouth/Throat: absent: Nasal Congestion, Dry Mouth, Facial Pain, Neck Pain - Cardiovascular Cardiovascular: absent: Chest Pain, Irregular Heart Rhythm, Pain Radiating to Arm/Neck/Jaw, Pedal Edema - Respiratory Respiratory: Cough. absent: Wheezing - Gastrointestinal Gastrointestinal: Melena (patient unsure as stools are dark due to iron gimenez pplmentation). absent: Abdominal Pain, Coffee Ground Emesis, Diarrhea, Hematemesis, Nausea, Vomiting - Genitourinary Genitourinary: absent: Hematuria - Reproductive: Female Reproductive:Female: absent: Abnormal Vaginal Bleeding - Musculoskeletal Musculoskeletal: absent: Neck Pain, Numbness, Tingling - Integumentary Integumentary: As Per HPI - Endocrine Endocrine: absent: Palpitations Past Patient History - Tetanus Immunizations Tetanus Immunization: Unknown - Past Medical History & Family History Past Medical History?: Yes - Past Social History Smoking Status: Never Smoked Chewing Tobacco Use: No Cigar Use: No Drugs: Denies Home Situation {Lives}: With Family - CARDIAC Hx Hypercholesterolemia: Yes Hx Hypertension: Yes - PULMONARY Hx Asthma: Yes Hx Chronic Obstructive Pulmonary Disease (COPD): Yes - NEUROLOGICAL Hx Neurological Disorder: No - HEENT Hx HEENT Problems: Yes Hx Blind: Yes (right eye) - RENAL Hx Chronic Kidney Disease: No - ENDOCRINE/METABOLIC Hx Endocrine Disorders: Yes Hx Diabetes Mellitus Type 2: Yes - HEMATOLOGICAL/ONCOLOGICAL Hx Blood Disorders: No - INTEGUMENTARY Hx Dermatological Problems: No - MUSCULOSKELETAL/RHEUMATOLOGICAL Hx Musculoskeletal Disorders: No Hx Falls: No - GASTROINTESTINAL Hx Gastrointestinal Disorders: No - GENITOURINARY/GYNECOLOGICAL Hx Genitourinary Disorders: No - PSYCHIATRIC Hx Depression: Yes - SURGICAL HISTORY Hx Cholecystectomy: Yes - ANESTHESIA Hx Anesthesia: Yes Hx Anesthesia Reactions: No Hx Malignant Hyperthermia: No Meds Allergies/Adverse Reactions: Allergies Allergy/AdvReac Type Severity Reaction Status Date / Time No Known Allergies Allergy Verified 05/15/15 14:01 Physical Exam - Constitutional Appears: Well, Non-toxic, No Acute Distress - Head Exam Head Exam: ATRAUMATIC, NORMAL INSPECTION, NORMOCEPHALIC - Eye Exam Eye Exam: Normal appearance - ENT Exam ENT Exam: Mucous Membranes Moist - Respiratory Exam Respiratory Exam: Clear to Auscultation Bilateral, NORMAL BREATHING PATTERN. a bsent: Rales, Rhonchi, Wheezes - Cardiovascular Exam Cardiovascular Exam: REGULAR RHYTHM, +S1, +S2. absent: JVD - GI/Abdominal Exam GI & Abdominal Exam: Normal Bowel Sounds, Soft. absent: Tenderness - Extremities Exam Extremities exam: Positive for: normal inspection, pedal pulses present. Negative for: calf tenderness, pedal edema, tenderness - Back Exam Back exam: NORMAL INSPECTION. absent: CVA tenderness (L), CVA tenderness (R) - Neurological Exam Neurological exam: Alert, Oriented x3 - Psychiatric Exam Psychiatric exam: Normal Affect, Normal Mood - Skin Skin Exam: Diaphoretic, Normal Color Results - Vital Signs Recent Vital Signs: Last Vital Signs Temp 98.8 F 04/08/18 14:30 Pulse 97 H 04/08/18 14:30 Resp 19 04/08/18 14:30 BP 139/72 04/08/18 14:30 Pulse Ox 98 04/08/18 14:30 - Labs Result Diagrams: 04/08/18 11:00 04/08/18 11:00 Labs: Laboratory Results - last 24 hr 04/08/18 04/08/18 04/08/18 10:45 11:00 11:00 WBC 4.5 L RBC 3.14 L Hgb 7.4 L Hct 24.1 L MCV 76.8 L D MCH 23.5 L MCHC 30.6 L RDW 17.7 H Plt Count 202 MPV 7.8 Neut % (Auto) 78.8 H Lymph % (Auto) 15.2 L [place] % (Auto) 5.3 Eos % (Auto) 0.5 Baso % (Auto) 0.2 Neut # (Auto) 3.6 Lymph # (Auto) 0.7 L [place] # (Auto) 0.2 Eos # (Auto) 0.0 Baso # (Auto) 0.0 Sodium 139 Potassium 4.6 Chloride 105 Carbon Dioxide 28 Anion Gap 11 BUN 13 Creatinine 0.7 Est GFR ( Amer) > 60 Est GFR (Non-Af Amer) > 60 POC Glucose (mg/dL) < 20 L* Random Glucose 290 H Calcium 8.4 Total Bilirubin 0.2 AST 23 ALT 23 Alkaline Phosphatase 74 Total Protein 5.9 L Albumin 3.0 L Globulin 2.9 Albumin/Globulin Ratio 1.0 Blood Type Antibody Screen BBK History Checked 04/08/18 04/08/18 04/08/18 11:04 12:30 14:28 WBC RBC Hgb Hct MCV MCH MCHC RDW Plt Count MPV Neut % (Auto) Lymph % (Auto) [place] % (Auto) Eos % (Auto) Baso % (Auto) Neut # (Auto) Lymph # (Auto) [place] # (Auto) Eos # (Auto) Baso # (Auto) Sodium Potassium Chloride Carbon Dioxide Anion Gap BUN Creatinine Est GFR ( Amer) Est GFR (Non-Af Amer) POC Glucose (mg/dL) 311 H 35 L* Random Glucose Calcium Total Bilirubin AST ALT Alkaline Phosphatase Total Protein Albumin Globulin Albumin/Globulin Ratio Blood Type O POSITIVE Antibody Screen Negative BBK History Checked Patient has bt 04/08/18 15:06 WBC RBC Hgb Hct MCV MCH MCHC RDW Plt Count MPV Neut % (Auto) Lymph % (Auto) [place] % (Auto) Eos % (Auto) Baso % (Auto) Neut # (Auto) Lymph # (Auto) [place] # (Auto) Eos # (Auto) Baso # (Auto) Sodium Potassium Chloride Carbon Dioxide Anion Gap BUN Creatinine Est GFR ( Amer) Est GFR (Non-Af Amer) POC Glucose (mg/dL) 123 H Random Glucose Calcium Total Bilirubin AST ALT Alkaline Phosphatase Total Protein Albumin Globulin Albumin/Globulin Ratio Blood Type Antibody Screen BBK History Checked Assessment & Plan - Assessment and Plan (Free Text) Assessment: 77 y/o female with PMHx of diabetes found unrepsonsive in bed this morning by homemaker- in ER responded to serial amps of D50, all labs and imaging reviewed, without acute findings suggesting alternative etiologies of AMS. At this visit, patient found to have worsening anemia Plan: 1) DM: asymptomatic, chronic, well-controlled. A1c 5.1% 11/22, however patient on multiple PO meds of which some may have contributed to hypoglycemia - Consult Endocrinology- Dr. guy - Hold all PO medications - SSI ACTID - Basal insulin HS - TDD (0.1 U/kg) 9.4 U - ACHS AccuCheck - Hypoglycemic treatment protocol in place - HgA1c ordered - TSH to evaluate hypoglycemia 2) HTN: asymptomatic, chronic, well-controlled - C/W ACEI 3) Anemia: asymptomatic, chronic, worsening, unknown etiology. Taking Iron supplementation, clinically no evidence of bleeding - Consult GI- - Held iron supplementation for now - T&S completed - Iron panel ordered - FOBT ordered - will consider hematology consult if appropriate 4) Systolic heart failure: ECHO 10/24 shows LVF 50%, mild MR, and evidence of diastolic relaxation dysfunction - Cont ACEI - Cont Lasix - consider a betablocker 6) COPD: chronic, symptomatic, oxygen-dependent - C/W home regimen 7) DVT prophylaxis: concerns for occult bleeding, will hold Lovenox/Heparin based DVT prophylaxis at this time - SCD B/L constant Dispo: home with homemaker on home oxygen <Bharat Kumar D - Last Filed: 04/08/18 19:05> Results - Vital Signs Recent Vital Signs: Last Vital Signs Temp 98.5 F 04/08/18 18:31 Pulse 102 H 04/08/18 18:31 Resp 20 04/08/18 18:31 BP 166/63 H 04/08/18 18:31 Pulse Ox 100 04/08/18 18:31 - Labs Result Diagrams: 04/08/18 11:00 04/08/18 11:00 Labs: Laboratory Results - last 24 hr 04/08/18 04/08/18 04/08/18 10:45 11:00 11:00 WBC 4.5 L RBC 3.14 L Hgb 7.4 L Hct 24.1 L MCV 76.8 L D MCH 23.5 L MCHC 30.6 L RDW 17.7 H Plt Count 202 MPV 7.8 Neut % (Auto) 78.8 H Lymph % (Auto) 15.2 L [place] % (Auto) 5.3 Eos % (Auto) 0.5 Baso % (Auto) 0.2 Neut # (Auto) 3.6 Lymph # (Auto) 0.7 L [place] # (Auto) 0.2 Eos # (Auto) 0.0 Baso # (Auto) 0.0 Retic Count Sodium 139 Potassium 4.6 Chloride 105 Carbon Dioxide 28 Anion Gap 11 BUN 13 Creatinine 0.7 Est GFR ( Amer) > 60 Est GFR (Non-Af Amer) > 60 POC Glucose (mg/dL) < 20 L* Random Glucose 290 H Calcium 8.4 Iron TIBC % Saturation Ferritin Total Bilirubin 0.2 AST 23 ALT 23 Alkaline Phosphatase 74 Total Protein 5.9 L Albumin 3.0 L Globulin 2.9 Albumin/Globulin Ratio 1.0 Blood Type Antibody Screen BBK History Checked 04/08/18 04/08/18 04/08/18 11:04 12:30 14:28 WBC RBC Hgb Hct MCV MCH MCHC RDW Plt Count MPV Neut % (Auto) Lymph % (Auto) [place] % (Auto) Eos % (Auto) Baso % (Auto) Neut # (Auto) Lymph # (Auto) [place] # (Auto) Eos # (Auto) Baso # (Auto) Retic Count Sodium Potassium Chloride Carbon Dioxide Anion Gap BUN Creatinine Est GFR ( Amer) Est GFR (Non-Af Amer) POC Glucose (mg/dL) 311 H 35 L* Random Glucose Calcium Iron TIBC % Saturation Ferritin Total Bilirubin AST ALT Alkaline Phosphatase Total Protein Albumin Globulin Albumin/Globulin Ratio Blood Type O POSITIVE Antibody Screen Negative BBK History Checked Patient has bt 04/08/18 04/08/18 04/08/18 15:06 16:29 16:47 WBC RBC Hgb Hct MCV MCH MCHC RDW Plt Count MPV Neut % (Auto) Lymph % (Auto) [place] % (Auto) Eos % (Auto) Baso % (Auto) Neut # (Auto) Lymph # (Auto) [place] # (Auto) Eos # (Auto) Baso # (Auto) Retic Count 2.0 H Sodium Potassium Chloride Carbon Dioxide Anion Gap BUN Creatinine Est GFR ( Amer) Est GFR (Non-Af Amer) POC Glucose (mg/dL) 123 H 54 L Random Glucose Calcium Iron TIBC % Saturation Ferritin Total Bilirubin AST ALT Alkaline Phosphatase Total Protein Albumin Globulin Albumin/Globulin Ratio Blood Type Antibody Screen BBK History Checked 04/08/18 04/08/18 04/08/18 16:47 16:47 17:20 WBC RBC Hgb Hct MCV MCH MCHC RDW Plt Count MPV Neut % (Auto) Lymph % (Auto) [place] % (Auto) Eos % (Auto) Baso % (Auto) Neut # (Auto) Lymph # (Auto) [place] # (Auto) Eos # (Auto) Baso # (Auto) Retic Count Sodium Potassium Chloride Carbon Dioxide Anion Gap BUN Creatinine Est GFR ( Amer) Est GFR (Non-Af Amer) POC Glucose (mg/dL) 159 H Random Glucose Calcium Iron 21 L TIBC 459 H % Saturation 5 L Ferritin 6.3 L Total Bilirubin AST ALT Alkaline Phosphatase Total Protein Albumin Globulin Albumin/Globulin Ratio Blood Type Antibody Screen BBK History Checked 04/08/18 18:12 WBC RBC Hgb Hct MCV MCH MCHC RDW Plt Count MPV Neut % (Auto) Lymph % (Auto) [place] % (Auto) Eos % (Auto) Baso % (Auto) Neut # (Auto) Lymph # (Auto) [place] # (Auto) Eos # (Auto) Baso # (Auto) Retic Count Sodium Potassium Chloride Carbon Dioxide Anion Gap BUN Creatinine Est GFR ( Amer) Est GFR (Non-Af Amer) POC Glucose (mg/dL) 90 Random Glucose Calcium Iron TIBC % Saturation Ferritin Total Bilirubin AST ALT Alkaline Phosphatase Total Protein Albumin Globulin Albumin/Globulin Ratio Blood Type Antibody Screen BBK History Checked Attending/Attestation - Attestation I have personally seen and examined this patient.: Yes I have fully participated in the care of the patient.: Yes I have reviewed all pertinent clinical information: Yes
[2018-04-08] MEDS: Insulin Lispro (humaLOG) 100 Units/ml Inj SC SCH ×2 (16:36→16:37)
[2018-04-08 17:56] LABS: IRON 21 ug/dL (37-170)
[2018-04-08 18:06] LABS: % IRON SATURATION 5 % (20-55); TOTAL IRON BINDING CAPACITY 459 ug/dL (250-450)
[2018-04-08] MEDS: Fluticasone-Salmeterol 250-50mcg Diskus IH SCH (21:52)
[2018-04-08] MEDS ORDERED: Insulin Detemir 100 Units/ml Inj SC SCH (22:00)
--- NOTE | 2018-04-09 02:47 | CON ---
DATE: 04/08/2018 ENDOCRINOLOGY CONSULT HISTORY OF PRESENT ILLNESS: She is in ER holding, and is now being referred for diabetic evaluation and management. This is a 77-year-old female with known history of type 2 diabetes, on a triple oral hypoglycemic combination, presenting here with generalized body weakness and recurrent syncopal episodes with supervening brief bout of unresponsiveness and was evaluated to have glucose levels below 20 mg/dL. PAST MEDICAL HISTORY: As mentioned above, history of type 2 diabetes on combination of Januvia, taken as 100 mg daily with metformin at 850 mg b.i.d. and Amaryl given as 4 mg b.i.d. with metformin 850 mg 2 times daily as given. History of hypertension and dyslipidemia. FAMILY HISTORY: Positive for diabetes and hypertension. SOCIAL HISTORY: The patient has supportive family. No known substance use. REVIEW OF SYSTEMS: As mentioned above, admits to generalized body weakness with episodic bouts of dizziness and lightheadedness, worse on the day of admission with supervening easy fatigability and tiredness and frequent near syncopal episode as noted. No chest pains or palpitations or PND. She admits to exertion . Her oral intake has been variable with nausea, dyspepsia, and vague upper abdominal pains. Also admits to marked polyuria, nocturia, especially nocturnally. PHYSICAL EXAMINATION: GENERAL: This is an average built female, in no apparent distress. VITAL SIGNS: Blood pressure of 140/80, pulse of 70 beats per minute and regular, temperature 98, respirations 20. HEENT: Head normocephalic. Eyes anicteric with pink conjunctivae. Funduscopy not possible at this time. Ears, nose, and throat otherwise normal. NECK: Supple. Thyroid gland is normal in size. No carotid bruits or cervical adenopathy. CARDIOPULMONARY: Some adynamic precordium. S1, S2 rapid and regular. LUNGS: Clear to auscultation. ABDOMEN: Flat, soft with positive bowel sounds. EXTREMITIES: No peripheral edema. Pulses are +2 bilaterally. LABORATORY DATA: Initial glucose was actually less than 20 with rebound hyperglycemic accelerations after D50 bolus injections as noted. Her latest chemistry showed a BUN of 13, sodium 139, potassium 4.6, chloride 105, CO2 of 28, glucose 311, and creatinine 0.7. Her glucose levels have ranged from 290 to 311 mg/dL. Her proBNP is 6610 as noted. Moreover, her hemoglobin is very low at 7.4 g with hematocrit of 24.1. ASSESSMENT: This is a 77-year-old female presenting here with symptomatic hypoglycemia and associated neuroglycopenic and hyperadrenergic with a brief bout of unresponsiveness as noted. PLAN OF MANAGEMENT: We will continue the low-dose correction scale, but we will modify to obviate hypoglycemia and detailed orders have been given. We will obtain serial chemistries and supplement accordingly as needed. We will also obtain a hemoglobin A1c to confirm her prior glycemic control and baseline thyroid function studies will be ordered. Michaela King MD
[2018-04-09 06:02] LABS: BASO % 0.3 % (0.0-2.0); EOS # 0.1 K/uL (0.0-0.7); EOS % 1.9 % (0.0-4.0); HEMOGLOBIN 7.4 g/dL (12.0-16.0); LYMPH # 1.8 K/uL (1.0-4.3); LYMPH % 33.7 % (20.0-40.0); MEAN CELL VOLUME 77.3 fl (81.0-99.0); MEAN CORPUSCULAR HEMOGLOBIN 23.7 pg (27.0-31.0); MEAN CORPUSCULAR HGB CONC 30.7 g/dL (33.0-37.0); MEAN PLATELET VOLUME 8.9 fl (7.2-11.7); MONO # 0.5 K/uL (0.0-0.8); MONO % 8.5 % (0.0-10.0); NEUT % 55.6 % (50.0-75.0); RBC 3.12 Mil/uL (3.80-5.20); RED CELL DISTRIBUTION WIDTH 17.9 % (11.5-14.5); WHITE BLOOD COUNT 5.3 K/uL (4.8-10.8)
[2018-04-09 06:53] LABS: BLOOD UREA NITROGEN 10 mg/dl (7-17); CALCIUM 8.7 mg/dL (8.4-10.2); GFR NON-AFRICAN AMERICAN > 60
[2018-04-09] MEDS: Insulin Lispro (humaLOG) 100 Units/ml Inj SC SCH ×2 (07:30)
--- NOTE | 2018-04-09 08:02 | CP.PCM.CON ---
<Kristyn Millan - Last Filed: 04/09/18 13:22> History of Present Illness - History of Present Illness History of Present Illness: GI Fellow PGY5 Consult Note This is a 77 y/o female with PMHx of Type II DM, HTN, HLD, and COPD on home oxygen, chronic borderline systolic heart failure EF 50%, was brought into the Emergency Department today due to episode of unresponsiveness at home. Upon arrival to ER, her BG was 20 and patient was given D50 and became responsive and alert. GI was consulted for anemia Hgb 7.4 from 8.4 in October 2017. Pt denies any rectal bleeding or black tarry stool, she does endorse constipation and taking iron at home. She denies any prior colonoscopy, no family hx of colon cancer. She reports taking ibuprofen 200mg 2-4tabs daily for a long time. She reports an EGD but unable to recall when and where and the results, denies hx of ulcer. She denies any abdominal pain, GERD. Ct imaging was negative for bowel pathology. Patient states she is on home oxygen for her COPD. ROS: A 12pt ROS was negative except as above PMHx: As stated in HPI PSHx: Left Hip surgery, cholecystectomy, negative C-sections unknown hx of hysterectomy SHx: denies history of smoking, positive hx of second hand smoking, no etoh or drugs FHx: Neg for colon cancer Past Patient History - Tetanus Immunizations Tetanus Immunization: Unknown - Past Medical History & Family History Past Medical History?: Yes - Past Social History Smoking Status: Never Smoked - CARDIAC Hx Cardiac Disorders: Yes Hx Hypercholesterolemia: Yes Hx Hypertension: Yes - PULMONARY Hx Respiratory Disorders: Yes Hx Asthma: Yes Hx Chronic Obstructive Pulmonary Disease (COPD): Yes - NEUROLOGICAL Hx Neurological Disorder: No - HEENT Hx HEENT Problems: Yes - RENAL Hx Chronic Kidney Disease: No - ENDOCRINE/METABOLIC Hx Endocrine Disorders: Yes Hx Diabetes Mellitus Type 2: Yes - HEMATOLOGICAL/ONCOLOGICAL Hx Blood Disorders: Yes Hx AIDS: No Hx Anemia: Yes Hx Human Immunodeficiency Virus (HIV): No - INTEGUMENTARY Hx Dermatological Problems: No - MUSCULOSKELETAL/RHEUMATOLOGICAL Hx Musculoskeletal Disorders: No Hx Falls: No - GASTROINTESTINAL Hx Gastrointestinal Disorders: No - GENITOURINARY/GYNECOLOGICAL Hx Genitourinary Disorders: No - PSYCHIATRIC Hx Psychophysiologic Disorder: Yes Hx Depression: Yes Hx Substance Use: No - SURGICAL HISTORY Hx Cholecystectomy: Yes - ANESTHESIA Hx Anesthesia: Yes Hx Anesthesia Reactions: No Hx Malignant Hyperthermia: No Meds Home Medications: Home Medication List Medication Instructions Recorded Confirmed Type Docusate Sodium [Colace] 100 mg PO HS #30 capsule 04/09/18 Rx Pantoprazole Sodium [Protonix] 40 mg PO BID #60 ect 04/09/18 Rx RX: Ferrous Sulfate 325 mg PO TID #90 tablet 04/09/18 Rx SITagliptin [Januvia] 50 mg PO DAILY #30 tab 04/09/18 Rx Allergies/Adverse Reactions: Allergies Allergy/AdvReac Type Severity Reaction Status Date / Time No Known Allergies Allergy Verified 05/15/15 14:01 - Medications Medications: Current Medications Dextrose (Dextrose 50% Inj) 0 ml IV STAT PRN; Protocol PRN Reason: Hypoglycemia Protocol Last Admin: 04/08/18 16:34 Dose: 50 ml Dextrose (Glutose 15) 0 gm PO ONCE PRN; Protocol PRN Reason: Hypoglycemia Protocol Furosemide (Lasix) 20 mg PO DAILY [facility] Glucagon (Glucagen Diagnostic Kit) 0 mg IM STAT PRN; Protocol PRN Reason: Hypoglycemia Protocol Dextrose/Sodium Chloride (Dextrose 5%-0.45% Ns 500 Ml) 500 mls @ 80 mls/hr IV .Q6H15M [facility] Stop: 04/09/18 10:53 Last Admin: 04/09/18 06:37 Dose: 80 mls/hr Insulin Detemir (Levemir) 5 units SC HS [facility] Last Admin: 04/08/18 22:17 Dose: 5 units Insulin Human Lispro (Humalog) 1 units SC ACTID [facility] Last Admin: 04/08/18 16:36 Dose: Not Given Insulin Human Lispro (Humalog) 0 units SC AC [facility]; Protocol Last Admin: 04/08/18 16:37 Dose: Not Given Lisinopril (Zestril) 10 mg PO DAILY [facility] Loratadine (Claritin) 10 mg PO DAILY [facility] Montelukast Sodium (Singulair) 10 mg PO HS [facility] Last Admin: 04/08/18 21:52 Dose: 10 mg Pantoprazole Sodium (Protonix Ec Tab) 40 mg PO DAILY [facility] Fluticasone/Salmeterol (Advair Diskus 250/50) 1 puff IH Q12 [facility] Last Admin: 04/08/18 21:52 Dose: 1 puff Sertraline HCl (Zoloft) 100 mg PO DAILY [facility] Physical Exam - Constitutional Appears: Non-toxic, No Acute Distress - Head Exam Head Exam: ATRAUMATIC, NORMAL INSPECTION, NORMOCEPHALIC - Eye Exam Eye Exam: EOMI, Normal appearance, PERRL Pupil Exam: PERRL - ENT Exam ENT Exam: Mucous Membranes Moist, Normal Exam - Neck Exam Neck exam: Positive for: Full Rom, Normal Inspection - Respiratory Exam Respiratory Exam: Clear to Auscultation Bilateral, NORMAL BREATHING PATTERN - Cardiovascular Exam Cardiovascular Exam: REGULAR RHYTHM, RRR, +S1, +S2 - GI/Abdominal Exam GI & Abdominal Exam: Normal Bowel Sounds, Soft. absent: Distended, Guarding, Organomegaly, Tenderness - Rectal Exam Rectal Exam: absent: Bloody Stool, Hemorrhoids Additional comments: stool in rectal vault, normal tone darl green stool, no melena or hematochezia - Extremities Exam Extremities exam: Positive for: full ROM, normal inspection - Neurological Exam Neurological exam: Alert, Oriented x3 - Psychiatric Exam Psychiatric exam: Normal Affect, Normal Mood - Skin Skin Exam: Dry, Intact, Normal Color, Warm Results - Vital Signs Recent Vital Signs: Last Vital Signs Temp 97.9 F 04/09/18 05:00 Pulse 89 04/09/18 05:00 Resp 20 04/09/18 05:00 BP 143/82 04/09/18 05:00 Pulse Ox 100 04/09/18 05:00 - Labs Result Diagrams: 04/09/18 04:20 04/09/18 04:20 Labs: Laboratory Results - last 24 hr 04/08/18 04/08/18 04/08/18 10:45 11:00 11:00 WBC 4.5 L RBC 3.14 L Hgb 7.4 L Hct 24.1 L MCV 76.8 L D MCH 23.5 L MCHC 30.6 L RDW 17.7 H Plt Count 202 MPV 7.8 Neut % (Auto) 78.8 H Lymph % (Auto) 15.2 L [place] % (Auto) 5.3 Eos % (Auto) 0.5 Baso % (Auto) 0.2 Neut # (Auto) 3.6 Lymph # (Auto) 0.7 L [place] # (Auto) 0.2 Eos # (Auto) 0.0 Baso # (Auto) 0.0 Retic Count Sodium 139 Potassium 4.6 Chloride 105 Carbon Dioxide 28 Anion Gap 11 BUN 13 Creatinine 0.7 Est GFR ( Amer) > 60 Est GFR (Non-Af Amer) > 60 POC Glucose (mg/dL) < 20 L* Random Glucose 290 H Calcium 8.4 Iron TIBC % Saturation Ferritin Total Bilirubin 0.2 AST 23 ALT 23 Alkaline Phosphatase 74 Total Protein 5.9 L Albumin 3.0 L Globulin 2.9 Albumin/Globulin Ratio 1.0 TSH 3rd Generation Blood Type Antibody Screen BBK History Checked 04/08/18 04/08/18 04/08/18 11:04 12:30 14:28 WBC RBC Hgb Hct MCV MCH MCHC RDW Plt Count MPV Neut % (Auto) Lymph % (Auto) [place] % (Auto) Eos % (Auto) Baso % (Auto) Neut # (Auto) Lymph # (Auto) [place] # (Auto) Eos # (Auto) Baso # (Auto) Retic Count Sodium Potassium Chloride Carbon Dioxide Anion Gap BUN Creatinine Est GFR ( Amer) Est GFR (Non-Af Amer) POC Glucose (mg/dL) 311 H 35 L* Random Glucose Calcium Iron TIBC % Saturation Ferritin Total Bilirubin AST ALT Alkaline Phosphatase Total Protein Albumin Globulin Albumin/Globulin Ratio TSH 3rd Generation Blood Type O POSITIVE Antibody Screen Negative BBK History Checked Patient has bt 04/08/18 04/08/18 04/08/18 15:06 16:29 16:47 WBC RBC Hgb Hct MCV MCH MCHC RDW Plt Count MPV Neut % (Auto) Lymph % (Auto) [place] % (Auto) Eos % (Auto) Baso % (Auto) Neut # (Auto) Lymph # (Auto) [place] # (Auto) Eos # (Auto) Baso # (Auto) Retic Count 2.0 H Sodium Potassium Chloride Carbon Dioxide Anion Gap BUN Creatinine Est GFR ( Amer) Est GFR (Non-Af Amer) POC Glucose (mg/dL) 123 H 54 L Random Glucose Calcium Iron TIBC % Saturation Ferritin Total Bilirubin AST ALT Alkaline Phosphatase Total Protein Albumin Globulin Albumin/Globulin Ratio TSH 3rd Generation Blood Type Antibody Screen BBK History Checked 04/08/18 04/08/18 04/08/18 16:47 16:47 17:20 WBC RBC Hgb Hct MCV MCH MCHC RDW Plt Count MPV Neut % (Auto) Lymph % (Auto) [place] % (Auto) Eos % (Auto) Baso % (Auto) Neut # (Auto) Lymph # (Auto) [place] # (Auto) Eos # (Auto) Baso # (Auto) Retic Count Sodium Potassium Chloride Carbon Dioxide Anion Gap BUN Creatinine Est GFR ( Amer) Est GFR (Non-Af Amer) POC Glucose (mg/dL) 159 H Random Glucose Calcium Iron 21 L TIBC 459 H % Saturation 5 L Ferritin 6.3 L Total Bilirubin AST ALT Alkaline Phosphatase Total Protein Albumin Globulin Albumin/Globulin Ratio TSH 3rd Generation Blood Type Antibody Screen BBK History Checked 04/08/18 04/08/18 04/09/18 18:12 21:59 04:20 WBC 5.3 RBC 3.12 L Hgb 7.4 L Hct 24.1 L MCV 77.3 L MCH 23.7 L MCHC 30.7 L RDW 17.9 H Plt Count 220 MPV 8.9 Neut % (Auto) 55.6 Lymph % (Auto) 33.7 [place] % (Auto) 8.5 Eos % (Auto) 1.9 Baso % (Auto) 0.3 Neut # (Auto) 3.0 Lymph # (Auto) 1.8 [place] # (Auto) 0.5 Eos # (Auto) 0.1 Baso # (Auto) 0.0 Retic Count Sodium Potassium Chloride Carbon Dioxide Anion Gap BUN Creatinine Est GFR ( Amer) Est GFR (Non-Af Amer) POC Glucose (mg/dL) 90 181 H Random Glucose Calcium Iron TIBC % Saturation Ferritin Total Bilirubin AST ALT Alkaline Phosphatase Total Protein Albumin Globulin Albumin/Globulin Ratio TSH 3rd Generation Blood Type Antibody Screen BBK History Checked 04/09/18 04/09/18 04:20 05:16 WBC RBC Hgb Hct MCV MCH MCHC RDW Plt Count MPV Neut % (Auto) Lymph % (Auto) [place] % (Auto) Eos % (Auto) Baso % (Auto) Neut # (Auto) Lymph # (Auto) [place] # (Auto) Eos # (Auto) Baso # (Auto) Retic Count Sodium 141 Potassium 4.1 Chloride 108 H Carbon Dioxide 29 Anion Gap 8 L BUN 10 Creatinine 0.8 Est GFR ( Amer) > 60 Est GFR (Non-Af Amer) > 60 POC Glucose (mg/dL) 100 Random Glucose 93 Calcium 8.7 Iron TIBC % Saturation Ferritin Total Bilirubin AST ALT Alkaline Phosphatase Total Protein Albumin Globulin Albumin/Globulin Ratio TSH 3rd Generation 0.77 Blood Type Antibody Screen BBK History Checked Assessment & Plan - Assessment and Plan (Free Text) Assessment: 77 y/o female found unrepsonsive, in ER responded to serial amps of D50. At this visit, patient found to have worsening anemia 1. Anemia 2. Systolic heart failure: ECHO 10/24 shows LVF 50%, mild MR, and evidence of diastolic relaxation dysfunction 3. COPD: chronic, symptomatic, oxygen-dependent 4. DM 5. HTN Plan: -Continue supportive care -No active GI bleeding at this time, Hgb stable, rectal exam with dark green stool -Pt on po iron at home -No prior colonoscopy, pt will need outpt procedure for CRC screening and microcytic anemia -Pt endorses taking NSAIDs, she will need EGD to r/o PUD -PPI daily -NPO -Plan for EGD today -Further recommendations to follow <Karoline Simental - Last Filed: 04/09/18 17:30> Meds - Medications Medications: Current Medications Dextrose (Dextrose 50% Inj) 0 ml IV STAT PRN; Protocol PRN Reason: Hypoglycemia Protocol Last Admin: 04/08/18 16:34 Dose: 50 ml Dextrose (Glutose 15) 0 gm PO ONCE PRN; Protocol PRN Reason: Hypoglycemia Protocol Furosemide (Lasix) 20 mg PO DAILY [facility] Glucagon (Glucagen Diagnostic Kit) 0 mg IM STAT PRN; Protocol PRN Reason: Hypoglycemia Protocol Iron Sucrose 100 mg/ Sodium (Chloride) 105 mls @ 105 mls/hr IVPB DAILY [facility] Stop: 04/11/18 23:59 Last Admin: 04/09/18 09:32 Dose: 105 mls/hr Insulin Detemir (Levemir) 5 units SC HS [facility] Last Admin: 04/08/18 22:17 Dose: 5 units Lisinopril (Zestril) 10 mg PO DAILY [facility] Loratadine (Claritin) 10 mg PO DAILY [facility] Montelukast Sodium (Singulair) 10 mg PO HS [facility] Last Admin: 04/08/18 21:52 Dose: 10 mg Pantoprazole Sodium (Protonix Ec Tab) 40 mg PO DAILY [facility] Fluticasone/Salmeterol (Advair Diskus 250/50) 1 puff IH Q12 [facility] Last Admin: 04/08/18 21:52 Dose: 1 puff Sertraline HCl (Zoloft) 100 mg PO DAILY [facility] Results - Vital Signs Recent Vital Signs: Last Vital Signs Temp 97.8 F 04/09/18 10:33 Pulse 92 H 04/09/18 10:33 Resp 13 04/09/18 10:33 BP 180/56 H 04/09/18 10:33 Pulse Ox 95 04/09/18 10:33 - Labs Result Diagrams: 04/09/18 04:20 04/09/18 04:20 Labs: Laboratory Results - last 24 hr 04/08/18 04/08/18 04/08/18 11:00 11:00 11:04 WBC 4.5 L RBC 3.14 L Hgb 7.4 L Hct 24.1 L MCV 76.8 L D MCH 23.5 L MCHC 30.6 L RDW 17.7 H Plt Count 202 MPV 7.8 Neut % (Auto) 78.8 H Lymph % (Auto) 15.2 L [place] % (Auto) 5.3 Eos % (Auto) 0.5 Baso % (Auto) 0.2 Neut # (Auto) 3.6 Lymph # (Auto) 0.7 L [place] # (Auto) 0.2 Eos # (Auto) 0.0 Baso # (Auto) 0.0 Retic Count PT INR Sodium 139 Potassium 4.6 Chloride 105 Carbon Dioxide 28 Anion Gap 11 BUN 13 Creatinine 0.7 Est GFR ( Amer) > 60 Est GFR (Non-Af Amer) > 60 POC Glucose (mg/dL) 311 H Random Glucose 290 H Calcium 8.4 Iron TIBC % Saturation Ferritin Total Bilirubin 0.2 AST 23 ALT 23 Alkaline Phosphatase 74 Total Protein 5.9 L Albumin 3.0 L Globulin 2.9 Albumin/Globulin Ratio 1.0 TSH 3rd Generation Blood Type Antibody Screen BBK History Checked 04/08/18 04/08/18 04/08/18 12:30 14:28 15:06 WBC RBC Hgb Hct MCV MCH MCHC RDW Plt Count MPV Neut % (Auto) Lymph % (Auto) [place] % (Auto) Eos % (Auto) Baso % (Auto) Neut # (Auto) Lymph # (Auto) [place] # (Auto) Eos # (Auto) Baso # (Auto) Retic Count PT INR Sodium Potassium Chloride Carbon Dioxide Anion Gap BUN Creatinine Est GFR ( Amer) Est GFR (Non-Af Amer) POC Glucose (mg/dL) 35 L* 123 H Random Glucose Calcium Iron TIBC % Saturation Ferritin Total Bilirubin AST ALT Alkaline Phosphatase Total Protein Albumin Globulin Albumin/Globulin Ratio TSH 3rd Generation Blood Type O POSITIVE Antibody Screen Negative BBK History Checked Patient has bt 04/08/18 04/08/18 04/08/18 16:29 16:47 16:47 WBC RBC Hgb Hct MCV MCH MCHC RDW Plt Count MPV Neut % (Auto) Lymph % (Auto) [place] % (Auto) Eos % (Auto) Baso % (Auto) Neut # (Auto) Lymph # (Auto) [place] # (Auto) Eos # (Auto) Baso # (Auto) Retic Count 2.0 H PT INR Sodium Potassium Chloride Carbon Dioxide Anion Gap BUN Creatinine Est GFR ( Amer) Est GFR (Non-Af Amer) POC Glucose (mg/dL) 54 L Random Glucose Calcium Iron 21 L TIBC 459 H % Saturation 5 L Ferritin Total Bilirubin AST ALT Alkaline Phosphatase Total Protein Albumin Globulin Albumin/Globulin Ratio TSH 3rd Generation Blood Type Antibody Screen BBK History Checked 04/08/18 04/08/18 04/08/18 16:47 17:20 18:12 WBC RBC Hgb Hct MCV MCH MCHC RDW Plt Count MPV Neut % (Auto) Lymph % (Auto) [place] % (Auto) Eos % (Auto) Baso % (Auto) Neut # (Auto) Lymph # (Auto) [place] # (Auto) Eos # (Auto) Baso # (Auto) Retic Count PT INR Sodium Potassium Chloride Carbon Dioxide Anion Gap BUN Creatinine Est GFR ( Amer) Est GFR (Non-Af Amer) POC Glucose (mg/dL) 159 H 90 Random Glucose Calcium Iron TIBC % Saturation Ferritin 6.3 L Total Bilirubin AST ALT Alkaline Phosphatase Total Protein Albumin Globulin Albumin/Globulin Ratio TSH 3rd Generation Blood Type Antibody Screen BBK History Checked 04/08/18 04/09/18 04/09/18 21:59 04:20 04:20 WBC 5.3 RBC 3.12 L Hgb 7.4 L Hct 24.1 L MCV 77.3 L MCH 23.7 L MCHC 30.7 L RDW 17.9 H Plt Count 220 MPV 8.9 Neut % (Auto) 55.6 Lymph % (Auto) 33.7 [place] % (Auto) 8.5 Eos % (Auto) 1.9 Baso % (Auto) 0.3 Neut # (Auto) 3.0 Lymph # (Auto) 1.8 [place] # (Auto) 0.5 Eos # (Auto) 0.1 Baso # (Auto) 0.0 Retic Count PT INR Sodium 141 Potassium 4.1 Chloride 108 H Carbon Dioxide 29 Anion Gap 8 L BUN 10 Creatinine 0.8 Est GFR ( Amer) > 60 Est GFR (Non-Af Amer) > 60 POC Glucose (mg/dL) 181 H Random Glucose 93 Calcium 8.7 Iron TIBC % Saturation Ferritin Total Bilirubin AST ALT Alkaline Phosphatase Total Protein Albumin Globulin Albumin/Globulin Ratio TSH 3rd Generation 0.77 Blood Type Antibody Screen BBK History Checked 04/09/18 04/09/18 05:16 10:11 WBC RBC Hgb Hct MCV MCH MCHC RDW Plt Count MPV Neut % (Auto) Lymph % (Auto) [place] % (Auto) Eos % (Auto) Baso % (Auto) Neut # (Auto) Lymph # (Auto) [place] # (Auto) Eos # (Auto) Baso # (Auto) Retic Count PT 11.9 INR 1.1 Sodium Potassium Chloride Carbon Dioxide Anion Gap BUN Creatinine Est GFR ( Amer) Est GFR (Non-Af Amer) POC Glucose (mg/dL) 100 Random Glucose Calcium Iron TIBC % Saturation Ferritin Total Bilirubin AST ALT Alkaline Phosphatase Total Protein Albumin Globulin Albumin/Globulin Ratio TSH 3rd Generation Blood Type Antibody Screen BBK History Checked Attending/Attestation - Attestation I have personally seen and examined this patient.: Yes I have fully participated in the care of the patient.: Yes I have reviewed all pertinent clinical information: Yes Notes (Text): 04/09/18 11:01 patient seen on Gi rounds. This is a 77 y/o female found unrepsonsive, in ER responded to serial amps of D50, likely cause due to hypoglycemia. Gi consulted for chronic anemia. Denies overt Gi bleeding. rectal with brown stool. No past colonoscopy. EGd was done but she does not remember findings. EGD done today showed old blood in the stomach with a diulefuoy lesion in prepylorus with adherent clot and oozing, that was injected with epinephrine and hemostasis achieved. Can start regular diet and PPI daily. Trend Hb. Outpatient colonoscopy. Discussed with primary physician 04/09/18 17:27
[2018-04-09] MEDS ORDERED: Pantoprazole 40 mg EC Tab PO SCH (09:00)
--- NOTE | 2018-04-09 10:21 | CP.PCM.PN ---
Addendum entered by Nayana Barksdale MD 04/09/18 15:09: Surrogate decision maker -sister Mari Original Note: Subjective - Date & Time of Evaluation Date of Evaluation: 04/09/18 Time of Evaluation: 10:10 - Subjective Subjective: 77 y/o female was seen and evaluated at bedside, admitted for hypoglycemia and worsening anemia. Patient was resting comfortably in bed and in no acute distress. Patient states she has been NPO since dinner yesterday as she will have EGD today by GI. Objective - Vital Signs/Intake and Output Vital Signs (last 24 hours): Temp Pulse Resp BP Pulse Ox 98.2 F 80 18 135/74 95 04/09/18 08:03 04/09/18 08:03 04/09/18 08:03 04/09/18 08:03 04/09/18 08:03 - Medications Medications: Current Medications Dextrose (Dextrose 50% Inj) 0 ml IV STAT PRN; Protocol PRN Reason: Hypoglycemia Protocol Last Admin: 04/08/18 16:34 Dose: 50 ml Dextrose (Glutose 15) 0 gm PO ONCE PRN; Protocol PRN Reason: Hypoglycemia Protocol Furosemide (Lasix) 20 mg PO DAILY [facility] Glucagon (Glucagen Diagnostic Kit) 0 mg IM STAT PRN; Protocol PRN Reason: Hypoglycemia Protocol Dextrose/Sodium Chloride (Dextrose 5%-0.45% Ns 500 Ml) 500 mls @ 80 mls/hr IV .Q6H15M [facility] Stop: 04/09/18 10:53 Last Admin: 04/09/18 06:37 Dose: 80 mls/hr Iron Sucrose 100 mg/ Sodium (Chloride) 105 mls @ 105 mls/hr IVPB DAILY [facility] Stop: 04/11/18 23:59 Last Admin: 04/09/18 09:32 Dose: 105 mls/hr Insulin Detemir (Levemir) 5 units SC HS [facility] Last Admin: 04/08/18 22:17 Dose: 5 units Lisinopril (Zestril) 10 mg PO DAILY [facility] Loratadine (Claritin) 10 mg PO DAILY [facility] Montelukast Sodium (Singulair) 10 mg PO HS [facility] Last Admin: 04/08/18 21:52 Dose: 10 mg Pantoprazole Sodium (Protonix Ec Tab) 40 mg PO DAILY [facility] Fluticasone/Salmeterol (Advair Diskus 250/50) 1 puff IH Q12 [facility] Last Admin: 04/08/18 21:52 Dose: 1 puff Sertraline HCl (Zoloft) 100 mg PO DAILY [facility] - Labs Labs: 04/09/18 04:20 04/09/18 04:20 - Constitutional Appears: Well, Non-toxic, No Acute Distress - Head Exam Head Exam: ATRAUMATIC, NORMOCEPHALIC - Eye Exam Eye Exam: Normal appearance, PERRL - ENT Exam ENT Exam: Mucous Membranes Moist, Normal Exam - Neck Exam Neck Exam: Full ROM - Respiratory Exam Respiratory Exam: Clear to Ausculation Bilateral. absent: Rales, Rhonchi, Wh eezes - Cardiovascular Exam Cardiovascular Exam: REGULAR RHYTHM. absent: JVD - GI/Abdominal Exam GI & Abdominal Exam: Soft, Normal Bowel Sounds. absent: Distended, Firm, Guarding, Rigid - Extremities Exam Extremities Exam: absent: Calf Tenderness, Pedal Edema - Neurological Exam Neurological Exam: Alert, Awake, Oriented x3 - Psychiatric Exam Psychiatric exam: Normal Affect, Normal Mood - Skin Skin Exam: Dry, Intact, Normal Color. absent: Diaphoretic Assessment and Plan - Assessment and Plan (Free Text) Assessment: 77 y/o female with PMHx of diabetes found unrepsonsive in bed this morning by homemaker- in ER responded to serial amps of D50, all labs and imaging reviewed, without acute findings suggesting alternative etiologies of AMS. At this visit, patient found to have worsening anemia Plan: 1) DM: asymptomatic, chronic, well-controlled. A1c 5.1% 11/22, however patient on multiple PO meds of which some may have contributed to hypoglycemia - Consult Endocrinology- Dr. guy, pending evaluation- appreciate recommendations - Hold all PO medications - SSI ACTID - Basal insulin HS - TDD (0.1 U/kg) 9.4 U - ACHS AccuCheck - Hypoglycemic treatment protocol in place - HgA1c: pending - TSH: 0.77 2) HTN: asymptomatic, chronic, well-controlled - C/W ACEI 3) Anemia: asymptomatic, chronic, worsening, unknown etiology. Taking Iron supplementation, clinically no evidence of bleeding - Patient NPO confirmed, and scheduled for EGD today 04/09/18 to r/o PUD - As per GI- stool in rectal vault, normal tone, dark green stool, no melena or hematochezia, no active GI bleeding, continue supportive care, outpatient colonoscopy, Hgb stable - will consider hematology consult if appropriate 4) Systolic heart failure: ECHO 10/24 shows LVF 50%, mild MR, and evidence of diastolic relaxation dysfunction - Cont ACEI - Cont Lasix 6) COPD: chronic, symptomatic, oxygen-dependent - C/W home regimen 7) DVT prophylaxis: concerns for occult bleeding, will hold Lovenox/Heparin based DVT prophylaxis at this time - SCD B/L constant Dispo: home with homemaker on home oxygen
[2018-04-09 10:32] LABS: INR 1.1; PROTHROMBIN TIME 11.9 Seconds (9.8-13.1)
[2018-04-09] MEDS ORDERED: Lactated Ringer's 500 ML IV ONE (10:35)
[2018-04-09] MEDS ORDERED: Etomidate 20 mg/10ml Inj IV ONE (11:45)
[2018-04-09] MEDS ORDERED: EPINEPHrine 1 mg/ml (1:1000) Inj ONE (12:12)
[2018-04-09] MEDS ORDERED: Esmolol 100 mg/10ml Inj IV ONE (12:22)
--- NOTE | 2018-04-09 12:22 | RAD ---
Date of service: 04/09/2018 HISTORY: cough COMPARISON: 04/08/2018 TECHNIQUE: Chest PA and lateral FINDINGS: LUNGS: No active pulmonary disease. PLEURA: No significant pleural effusion identified. No pneumothorax apparent. CARDIOVASCULAR: Normal. OSSEOUS STRUCTURES: No significant abnormalities. VISUALIZED UPPER ABDOMEN: Normal. OTHER FINDINGS: None. IMPRESSION: No active disease.
[2018-04-09 12:53] VITALS: BP 160/90; PULSE 87; RESP 16; TEMP 98.1; O2SAT 97
--- NOTE | 2018-04-09 13:59 | CP.PCM.DIS ---
<Igor Yancey - Last Filed: 04/09/18 14:21> Provider - Provider Date of Admission: 04/08/18 14:02 Attending physician: Bharat Kumar MD Consults: Endocrinology- Dr. King GI- Dr. Simental Time Spent in preparation of Discharge (in minutes): 30 Hospital Course - Lab Results Lab Results: Most Recent Lab Values WBC 5.3 K/uL (4.8-10.8) 04/09/18 04:20 RBC 3.12 Mil/uL (3.80-5.20) L 04/09/18 04:20 Hgb 7.4 g/dL (12.0-16.0) L 04/09/18 04:20 Hct 24.1 % (34.0-47.0) L 04/09/18 04:20 MCV 77.3 fl (81.0-99.0) L 04/09/18 04:20 MCH 23.7 pg (27.0-31.0) L 04/09/18 04:20 MCHC 30.7 g/dL (33.0-37.0) L 04/09/18 04:20 RDW 17.9 % (11.5-14.5) H 04/09/18 04:20 Plt Count 220 K/uL (130-400) 04/09/18 04:20 MPV 8.9 fl (7.2-11.7) 04/09/18 04:20 Neut % (Auto) 55.6 % (50.0-75.0) 04/09/18 04:20 Lymph % (Auto) 33.7 % (20.0-40.0) 04/09/18 04:20 Teller % (Auto) 8.5 % (0.0-10.0) 04/09/18 04:20 Eos % (Auto) 1.9 % (0.0-4.0) 04/09/18 04:20 Baso % (Auto) 0.3 % (0.0-2.0) 04/09/18 04:20 Neut # (Auto) 3.0 K/uL (1.8-7.0) 04/09/18 04:20 Lymph # (Auto) 1.8 K/uL (1.0-4.3) 04/09/18 04:20 Teller # (Auto) 0.5 K/uL (0.0-0.8) 04/09/18 04:20 Eos # (Auto) 0.1 K/uL (0.0-0.7) 04/09/18 04:20 Baso # (Auto) 0.0 K/uL (0.0-0.2) 04/09/18 04:20 Retic Count 2.0 % (0.5-1.5) H 04/08/18 16:47 PT 11.9 Seconds (9.8-13.1) 04/09/18 10:11 INR 1.1 04/09/18 10:11 Sodium 141 mmol/l (132-148) 04/09/18 04:20 Potassium 4.1 MMOL/L (3.6-5.0) 04/09/18 04:20 Chloride 108 mmol/L (98-107) H 04/09/18 04:20 Carbon Dioxide 29 mmol/L (22-30) 04/09/18 04:20 Anion Gap 8 (10-20) L 04/09/18 04:20 BUN 10 mg/dl (7-17) 04/09/18 04:20 Creatinine 0.8 mg/dl (0.7-1.2) 04/09/18 04:20 Est GFR ( Amer) > 60 04/09/18 04:20 Est GFR (Non-Af Amer) > 60 04/09/18 04:20 POC Glucose (mg/dL) 100 mg/dL (65-110) 04/09/18 05:16 Random Glucose 93 mg/dL (65-105) 04/09/18 04:20 Hemoglobin A1c 5.5 % (4.2-6.5) 04/09/18 04:20 Calcium 8.7 mg/dL (8.4-10.2) 04/09/18 04:20 Iron 21 ug/dL (37-170) L 04/08/18 16:47 TIBC 459 ug/dL (250-450) H 04/08/18 16:47 % Saturation 5 % (20-55) L 04/08/18 16:47 Ferritin 6.3 ng/Ml (11.1-264.0) L 04/08/18 16:47 Total Bilirubin 0.2 mg/dl (0.2-1.3) 04/08/18 11:00 AST 23 U/L (14-36) 04/08/18 11:00 ALT 23 U/L (9-52) 04/08/18 11:00 Alkaline Phosphatase 74 U/L (38-126) 04/08/18 11:00 Total Protein 5.9 G/DL (6.3-8.2) L 04/08/18 11:00 Albumin 3.0 g/dL (3.5-5.0) L 04/08/18 11:00 Globulin 2.9 gm/dL (2.2-3.9) 04/08/18 11:00 Albumin/Globulin Ratio 1.0 (1.0-2.1) 04/08/18 11:00 TSH 3rd Generation 0.77 mIU/ML (0.46-4.68) 04/09/18 04:20 Blood Type O POSITIVE 04/08/18 12:30 Antibody Screen Negative 04/08/18 12:30 BBK History Checked Patient has bt 04/08/18 12:30 - Hospital Course Hospital Course: 77 y/o female was seen and evaluated at bedside, admitted for hypoglycemia and worsening anemia. Patient was resting comfortably in bed and in no acute distress. Patient's EGD findings today show an ulceration. Patient was offered a blood transfusion, however patient refused blood transfusion at this time. Patient will be discharged home with Protonix 1) DM: asymptomatic, chronic, well-controlled. A1c 5.1% 11/22, however patient on multiple PO meds of which some may have contributed to hypoglycemia - New Rx- Patient Rx Januvia 50 mg PO QD - Patient to follow up with Dr. Duran PMD 2) HTN: asymptomatic, chronic, well-controlled - C/W ACEI 3) Anemia/GI Ulceration: asymptomatic, chronic, worsening - Patient EGD showed an ulceration, patient refused blood transfusion at this time - Patient to follow up with Dr. Simental in [facility] - New Rx- Ferrous Sulfate 325 mg TID - New Rx- Protonix 40 mg PO BID - New Rx- Colace 100 mg PO HS 4) Systolic heart failure: ECHO 10/24 shows LVF 50%, mild MR, and evidence of diastolic relaxation dysfunction - Cont ACEI - Cont Lasix 6) COPD: chronic, symptomatic, oxygen-dependent - C/W home regimen 7) DVT prophylaxis: concerns for occult bleeding, will hold Lovenox/Heparin based DVT prophylaxis at this time - SCD B/L constant - Date & Time of H&P Date of H&P: 04/09/18 Time of H&P: 14:10 Discharge Exam - Head Exam Head Exam: ATRAUMATIC, NORMAL INSPECTION, NORMOCEPHALIC - Eye Exam Eye Exam: PERRL - ENT Exam ENT Exam: Mucous Membranes Moist - Neck Exam Neck exam: Full Rom - Respiratory Exam Respiratory Exam: NORMAL BREATHING PATTERN. absent: Rales, Rhonchi, Wheezes - Cardiovascular Exam Cardiovascular Exam: REGULAR RHYTHM. absent: JVD - GI/Abdominal Exam GI & Abdominal Exam: Normal Bowel Sounds, Soft. absent: Distended, Firm, Guarding, Tenderness - Neurological Exam Neurological exam: Alert, Oriented x3 - Psychiatric Exam Psychiatric exam: Normal Affect, Normal Mood - Skin Skin Exam: Dry, Normal Color Discharge Plan - Discharge Medications Prescriptions: Docusate Sodium [Colace] 100 mg PO HS #30 capsule Ferrous Sulfate 325 mg PO TID #90 tablet Pantoprazole Sodium [Protonix] 40 mg PO BID #60 ect SITagliptin [Januvia] 50 mg PO DAILY #30 tab - Follow Up Plan Condition: FAIR Disposition: HOME/ ROUTINE Patient education suggested?: Yes Instructions: Low Blood Sugar, Adult (DC), Anemia of Chronic Disease (DC) Additional Instructions: Clear liquid diet today, resume regular diet tomorrow NO ASA, NO NSAIDs ( Ibuprofen , Naproxen) ff up with Dr Simental next week Patient to follow up with Dr Duran upon discharge Rx: Januvia 50 mg PO Daily, Colace 100 mg PO HS, Protonix 40 mg PO BID, Ferrous Sulfate 325 mg PO TID d/c all Diabestes meds except the one on Med Crec Referrals: Karoline Simental MD [Medical Doctor] - Kirby Duran MD [Family Provider] - <Nayana Barksdale - Last Filed: 04/09/18 15:08> Provider - Provider Date of Admission: 04/08/18 14:02 Attending physician: Bharat Kumar MD Diagnosis - Discharge Diagnosis (1) Hypoglycemia associated with type 2 diabetes mellitus Status: Acute (2) Gastritis and gastroduodenitis with hemorrhage Status: Acute (3) Anemia associated with acute blood loss Status: Acute (4) HTN (hypertension) Status: Chronic (5) Systolic CHF, chronic Status: Chronic (6) 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 Status: Acute Hospital Course - Lab Results Lab Results: Most Recent Lab Values WBC 5.3 K/uL (4.8-10.8) 04/09/18 04:20 RBC 3.12 Mil/uL (3.80-5.20) L 04/09/18 04:20 Hgb 7.4 g/dL (12.0-16.0) L 04/09/18 04:20 Hct 24.1 % (34.0-47.0) L 04/09/18 04:20 MCV 77.3 fl (81.0-99.0) L 04/09/18 04:20 MCH 23.7 pg (27.0-31.0) L 04/09/18 04:20 MCHC 30.7 g/dL (33.0-37.0) L 04/09/18 04:20 RDW 17.9 % (11.5-14.5) H 04/09/18 04:20 Plt Count 220 K/uL (130-400) 04/09/18 04:20 MPV 8.9 fl (7.2-11.7) 04/09/18 04:20 Neut % (Auto) 55.6 % (50.0-75.0) 04/09/18 04:20 Lymph % (Auto) 33.7 % (20.0-40.0) 04/09/18 04:20 Teller % (Auto) 8.5 % (0.0-10.0) 04/09/18 04:20 Eos % (Auto) 1.9 % (0.0-4.0) 04/09/18 04:20 Baso % (Auto) 0.3 % (0.0-2.0) 04/09/18 04:20 Neut # (Auto) 3.0 K/uL (1.8-7.0) 04/09/18 04:20 Lymph # (Auto) 1.8 K/uL (1.0-4.3) 04/09/18 04:20 Teller # (Auto) 0.5 K/uL (0.0-0.8) 04/09/18 04:20 Eos # (Auto) 0.1 K/uL (0.0-0.7) 04/09/18 04:20 Baso # (Auto) 0.0 K/uL (0.0-0.2) 04/09/18 04:20 Retic Count 2.0 % (0.5-1.5) H 04/08/18 16:47 PT 11.9 Seconds (9.8-13.1) 04/09/18 10:11 INR 1.1 04/09/18 10:11 Sodium 141 mmol/l (132-148) 04/09/18 04:20 Potassium 4.1 MMOL/L (3.6-5.0) 04/09/18 04:20 Chloride 108 mmol/L (98-107) H 04/09/18 04:20 Carbon Dioxide 29 mmol/L (22-30) 04/09/18 04:20 Anion Gap 8 (10-20) L 04/09/18 04:20 BUN 10 mg/dl (7-17) 04/09/18 04:20 Creatinine 0.8 mg/dl (0.7-1.2) 04/09/18 04:20 Est GFR ( Amer) > 60 04/09/18 04:20 Est GFR (Non-Af Amer) > 60 04/09/18 04:20 POC Glucose (mg/dL) 100 mg/dL (65-110) 04/09/18 05:16 Random Glucose 93 mg/dL (65-105) 04/09/18 04:20 Hemoglobin A1c 5.5 % (4.2-6.5) 04/09/18 04:20 Calcium 8.7 mg/dL (8.4-10.2) 04/09/18 04:20 Iron 21 ug/dL (37-170) L 04/08/18 16:47 TIBC 459 ug/dL (250-450) H 04/08/18 16:47 % Saturation 5 % (20-55) L 04/08/18 16:47 Ferritin 6.3 ng/Ml (11.1-264.0) L 04/08/18 16:47 Total Bilirubin 0.2 mg/dl (0.2-1.3) 04/08/18 11:00 AST 23 U/L (14-36) 04/08/18 11:00 ALT 23 U/L (9-52) 04/08/18 11:00 Alkaline Phosphatase 74 U/L (38-126) 04/08/18 11:00 Total Protein 5.9 G/DL (6.3-8.2) L 04/08/18 11:00 Albumin 3.0 g/dL (3.5-5.0) L 04/08/18 11:00 Globulin 2.9 gm/dL (2.2-3.9) 04/08/18 11:00 Albumin/Globulin Ratio 1.0 (1.0-2.1) 04/08/18 11:00 TSH 3rd Generation 0.77 mIU/ML (0.46-4.68) 04/09/18 04:20 Blood Type O POSITIVE 04/08/18 12:30 Antibody Screen Negative 04/08/18 12:30 BBK History Checked Patient has bt 04/08/18 12:30 Attending/Attestation - Attestation I have personally seen and examined this patient.: Yes I have fully participated in the care of the patient.: Yes I have reviewed all pertinent clinical information, including history, physical exam and plan: Yes Notes (Text): (1) Hypoglycemia associated with type 2 diabetes mellitus d/c all oral hypoglycemics for now cont only Januvia ff up with Dr Roger hendrix for further mgt of DM (2) Gastritis and gastroduodenitis with hemorrhage 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
[2018-04-09] MEDS: Fluticasone-Salmeterol 250-50mcg Diskus IH SCH (14:27)
--- NOTE | 2018-04-10 04:41 | PN ---
DATE: 04/09/2018 ENDO FOLLOWUP NOTE SUBJECTIVE: This is a 77-year-old female with recent uncontrolled type 2 diabetes who is presenting here with a brief bout of unresponsiveness related to symptomatic hypoglycemia and has now improved clinically and metabolically as noted thereof. Her glucose values today have ranged overnight from 100 to 181 mg/dL. LABORATORY DATA: Her chemistries today showed a BUN of 10, sodium 141, potassium of 4.1, chloride 108, CO2 of 29, glucose 93, and creatinine 0.8. ASSESSMENT AND PLAN: So at this time, we will recommend only the initiation of hypoglycemic therapy with Januvia given as 100 mg once daily as ordered. We will hold off metformin and Amaryl medications as given. She will follow ongoing diabetic management and also adjustments of her oral hypoglycemic therapy as indicated. We will follow. Michaela King MD
== END 2018-04-09 15:45 | disposition home or self-care (01) ==
LOC: H.ER 10:37 → H.ERHOLD 14:02 → H.TEL 18:14
DX: K29.91 Gastroduodenitis, unspecified, with bleeding (principal); K31.82 Dieulafoy lesion (hemorrhagic) of stomach and duodenum; K29.61 Other gastritis with bleeding; K44.9 Diaphragmatic hernia without obstruction or gangrene; K28.9 Gastrojejunal ulcer, unspecified as acute or chronic, without hemorrhage or perforation; Z79.84 Long term (current) use of oral hypoglycemic drugs; Z90.49 Acquired absence of other specified parts of digestive tract; Z99.81 Dependence on supplemental oxygen; F32.9 Major depressive disorder, single episode, unspecified; Z79.899 Other long term (current) drug therapy; D50.9 Iron deficiency anemia, unspecified; D62 Acute posthemorrhagic anemia; E11.649 Type 2 diabetes mellitus with hypoglycemia without coma; E78.00 Pure hypercholesterolemia, unspecified; E78.5 Hyperlipidemia, unspecified; H54.61 Unqualified visual loss, right eye, normal vision left eye; I11.0 Hypertensive heart disease with heart failure; I50.22 Chronic systolic (congestive) heart failure; J44.9 Chronic obstructive pulmonary disease, unspecified
CPT/HCPCS: 36415; 43239; 43255; 71045; 71046; 74177; 80048; 80053; 82728; 82948; 83036; 83540; 83550; 84443; 85025; 85044; 85610; 86850; 86900; 88305; 93005; 96374; 99285; G0378; J0171; J1756; J2001; J7120; Q9967

== ENCOUNTER 2018-08-09 11:24 | Observation (INO) | payer OTHER ==
[2018-08-09 11:24] VITALS: BMI 36.8
--- NOTE | 2018-08-09 12:09 | ED PDOC ---
HPI: Chest Pain Time Seen by Provider: 08/09/18 11:37 Chief Complaint (Nursing): Chest Pain Chief Complaint (Provider): Chest Pain History Per: Patient History/Exam Limitations: no limitations Quality: Pressure Additional Complaint(s): 77 years old female with a history of hypertension, COPD and diabetes presents to ER for evaluation of chest pain onset [employer]. Patient reports she was walking ar ound in her apartment when she felt short in breath and left sided chest pressure with bilateral leg pain. PMD: Kirby watson Past Medical History Reviewed: Historical Data, Nursing Documentation, Vital Signs Vital Signs: Last Vital Signs Temp 98.0 F 08/09/18 11:34 Pulse 104 H 08/09/18 11:34 Resp 20 08/09/18 11:34 BP 110/57 L 08/09/18 11:34 Pulse Ox 99 08/09/18 11:34 - Medical History PMH: Anemia, Asthma, COPD, Depression, Diabetes, Gall Bladder Disease, HTN, Hypercholesterolemia Denies: HIV, Chronic Kidney Disease - Surgical History Surgical History: Cholecystectomy - Family History Family History: States: Unknown Family Hx - Social History Current smoker - smoking cessation education provided: No Alcohol: None Drugs: Denies - Home Medications Home Medications: Ambulatory Orders Medication Instructions Recorded Lisinopril [Zestril] 10 mg PO DAILY 10/02/16 Montelukast [Singulair] 10 mg PO HS 10/02/16 Sertraline [Zoloft] 100 mg PO DAILY 10/02/16 Furosemide [Lasix] 20 mg PO DAILY #30 tab 10/04/16 Fluticasone/Salmeterol [Advair 1 puff IH Q12 04/08/18 250-50 Diskus] Folic Acid 1 mg PO DAILY 04/08/18 Levocetirizine Dihydrochloride 5 mg PO DAILY 04/08/18 [Xyzal] traMADol [Ultram] 50 mg PO Q6 PRN 04/08/18 Docusate Sodium [Colace] 100 mg PO HS #30 capsule 04/09/18 Ferrous Sulfate 325 mg PO TID #90 tablet 04/09/18 Pantoprazole Sodium [Protonix] 40 mg PO BID #60 ect 04/09/18 SITagliptin [Januvia] 50 mg PO DAILY #30 tab 04/09/18 Glimepiride [amaRYL] 2 mg PO BID 04/23/18 Pioglitazone HCl [Actos] 15 mg PO DAILY 04/23/18 - Allergies Allergies/Adverse Reactions: Allergies Allergy/AdvReac Type Severity Reaction Status Date / Time EGG Allergy REDNESS Verified 08/09/18 11:49 FELIZ Risk Score for UA/NSTEMI - FELIZ Risk Score Age > 64: YES 3 or more CAD Risk Factors: YES Known CAD (Stenosis greater than 50%): NO Aspirin use in past 7 days: NO Severe Angina: NO EKG ST changes greater than 0.5mm: NO Positive Cardiac Marker: NO FELIZ Score: 2 Risk %: 8% Review of Systems ROS Statement: Except As Marked, All Systems Reviewed And Found Negative Cardiovascular: Positive for: Chest Pain (pressure) Respiratory: Positive for: Shortness of Breath Physical Exam - Reviewed Nursing Documentation Reviewed: Yes Vital Signs Reviewed: Yes - Physical Exam Appears: Positive for: Well, No Acute Distress Head Exam: Positive for: ATRAUMATIC, NORMOCEPHALIC Cardiovascular/Chest: Positive for: Regular Rate, Rhythm. Negative for: Chest Non Tender (Left anterior chest wall tenderness) Respiratory: Positive for: Normal Breath Sounds. Negative for: Wheezing Extremity: Positive for: Tenderness (from knee to feet bilaterally). Negative for: Pedal Edema, Other (Induration) Neurologic/Psych: Positive for: Alert (Speaking full sentences), Oriented (x3) - Laboratory Results Result Diagrams: 08/09/18 12:00 08/09/18 13:33 - ECG Interpretation Of ECG: ST @ 103. O2 Sat by Pulse Oximetry: 99 (RA) Pulse Ox Interpretation: Normal Medical Decision Making Medical Decision Making: Time: 1148 Initial Impression: Chest pain, dyspnea and bilateral leg pain. Initial Plan: --EKG --Troponin --CBC --D Dimer --PTT --PT --Chest x-ray --Urinalysis --Bilateral duplex lower extremity vein US 1217 CXR FINDINGS: LUNGS: No active pulmonary disease. PLEURA: No significant pleural effusion identified, no pneumothorax apparent. CARDIOVASCULAR: Cardiomegaly. No evidence of acute, significant cardiovascular disease. Atherosclerotic calcifications identified primarily aortic arch. OSSEOUS STRUCTURES: No significant abnormalities. VISUALIZED UPPER ABDOMEN: Normal. OTHER FINDINGS: None. IMPRESSION: No active disease. No significant interval change compared to the prior examination(s). Scribe Attestation: Documented by Madelin Hebert, acting as a scribe for Sherin Sandhu MD. Provider Scribe Attestation: All medical record entries made by the Scribe were at my direction and personally dictated by me. I have reviewed the chart and agree that the record accurately reflects my personal performance of the history, physical exam, medical decision making, and the department course for this patient. I have also personally directed, reviewed, and agree with the discharge instructions and disposition. Disposition - Clinical Impression Clinical Impression: Chest pain, Dyspnea, UTI (urinary tract infection) - Patient ED Disposition Is Patient to be Admitted: Yes - Disposition Disposition Time: 14:43 Condition: STABLE Forms: [facility] (Albanian) - Pt Status Changed To: Hospital Disposition Of: Inpatient - Admit Certification Admit to Inpatient:: After my assessment, the patient will require hospitalizati on for at least two midnights. This is because of the severity of symptoms shown, intensity of services needed, and/or the medical risk in this patient being treated as an outpatient. - POA Present On Arrival: None
[2018-08-09 12:14] LABS: BASO % 0.1 % (0.0-2.0); EOS # 0.1 K/uL (0.0-0.7); EOS % 0.8 % (0.0-4.0); HEMOGLOBIN 11.3 g/dL (12.0-16.0); LYMPH # 0.6 K/uL (1.0-4.3); LYMPH % 8.8 % (20.0-40.0); MEAN CELL VOLUME 84.1 fl (81.0-99.0); MEAN CORPUSCULAR HEMOGLOBIN 26.5 pg (27.0-31.0); MEAN CORPUSCULAR HGB CONC 31.5 g/dL (33.0-37.0); MEAN PLATELET VOLUME 10.1 fl (7.2-11.7); MONO # 0.3 K/uL (0.0-0.8); MONO % 4.2 % (0.0-10.0); NEUT # 5.7 K/uL (1.8-7.0); NEUT % 86.1 % (50.0-75.0); NRBC % 0.3 % (0.0-0.0); PLATELET COUNT 203 K/uL (130-400); RBC 4.27 Mil/uL (3.80-5.20); RED CELL DISTRIBUTION WIDTH 16.3 % (11.5-14.5); WHITE BLOOD COUNT 6.7 K/uL (4.8-10.8)
--- NOTE | 2018-08-09 12:21 | RAD ---
Date of service: 08/09/2018 HISTORY: Chest pain. COMPARISON: No prior. FINDINGS: LUNGS: No active pulmonary disease. PLEURA: No significant pleural effusion identified, no pneumothorax apparent. CARDIOVASCULAR: Cardiomegaly. No evidence of acute, significant cardiovascular disease. Atherosclerotic calcifications identified primarily aortic arch. OSSEOUS STRUCTURES: No significant abnormalities. VISUALIZED UPPER ABDOMEN: Normal. OTHER FINDINGS: None. IMPRESSION: No active disease. No significant interval change compared to the prior examination(s).
[2018-08-09 12:24] LABS: INR 1.1; PROTHROMBIN TIME 12.3 Seconds (9.8-13.1)
[2018-08-09 12:26] LABS: PARTIAL THROMBOPLASTIN TIME 34.5 Seconds (25.6-37.1)
--- NOTE | 2018-08-09 13:44 | US ---
Date of service: 08/09/2018 PROCEDURE: Bilateral lower extremity venous duplex Doppler. HISTORY: BLE pain COMPARISON: None available. TECHNIQUE: Bilateral common femoral, superficial femoral, popliteal and posterior tibial veins were evaluated. Flow was assessed with color Doppler, compressibility, assessment of phasic flow and augmentation response. FINDINGS: Obese body habitus limits definition vascular anatomy. COMMON FEMORAL VEIN: Right CFV: Unremarkable. Left CFV: Unremarkable. SUPERFICIAL FEMORAL VEIN: Right SFV: Unremarkable. Left SFV: Unremarkable. POPLITEAL VEIN: Right Popliteal: Unremarkable. Left Popliteal: Unremarkable. POSTERIOR TIBIAL VEIN: Right PTV: Unremarkable. Left PTV: Unremarkable. OTHER FINDINGS: Small right popliteal cyst identified measuring 2.1 x 1.6 cm. IMPRESSION: No sonographic evidence of deep venous thrombosis bilateral lower extremities. Small right popliteal cyst, 2.1 x 1.6 cm.
[2018-08-09 13:45] LABS: SQUAMOUS EPITHIAL 8 /hpf (0-5); URINE BACTERIA OCC (<OCC); URINE BILIRUBIN NEGATIVE (NEGATIVE); URINE BLOOD NEGATIVE (NEGATIVE); URINE CLARITY SLIGHTY-CLOUDY (Clear); URINE COLOR YELLOW (YELLOW); URINE GLUCOSE (UA) NEG (NEGATIVE); URINE LEUKOCYTE ESTERASE MOD Leu/uL (Negative); URINE PROTEIN NEGATIVE (NEGATIVE); URINE UROBILINOGEN 0.2-1.0 mg/dL (0.2-1.0)
[2018-08-09 13:55] LABS: LYMPHOCYTE 11 % (20-50); MONOCYTE 4 % (0-10); NEUTROPHIL 85 % (42-75); PLATELET ESTIMATE NORMAL (NORMAL); TOTAL CELLS COUNTED 100
[2018-08-09 13:56] LABS: ANISOCYTOSIS SLIGHT; LARGE PLATELETS PRESENT; OVALOCYTES SLIGHT
[2018-08-09 13:59] LABS: ALBUMIN 3.6 g/dL (3.5-5.0); BLOOD UREA NITROGEN 19 mg/dl (7-17); GFR NON-AFRICAN AMERICAN > 60
[2018-08-09 14:08] LABS: ALT/SGPT 25 U/L (9-52); AST/SGOT 43 U/L (14-36)
[2018-08-09] MEDS ORDERED: cefTRIAXone (Rocephin) 1 gm Inj ONE (14:51)
--- NOTE | 2018-08-09 15:09 | CP.PCM.HP ---
<CurtisSharon - Last Filed: 08/09/18 17:07> History of Present Illness - History of Present Illness History of Present Illness: 77 y/o female with PMHx of Type II DM, HTN, HLD, and COPD (on home oxygen) who ambulates with a walker was brought to ED for evaluation of a dull left sided ch est pain, which started yesterday afternoon, 11/15 in nature, and exacerbated by walking as well as deep breathing. She reports her chest pain continued to worsen, increased to 05/18, and was accompanied by shortness of breath. She has never had pain like this before, and denies any previous hx of blood clots or GA. She denied any fever, chills, nausea, vomitting, sweating, dizziness or lightheadedness. PMD: Dr. Duran PMHx: Obesity, Type II DM, HTN, HLD, COPD (on home oxygen) & low normal LVEF 50% with impaired diastolic relaxation PSHx: Left Hip surgery, cholecystectomy & hysterectomy Allergies: NKDA FHx: unknown Social Hx: denies cigarette, EtOH or elicit drug use; ambulates with walker at home & lives alone Home meds: pantoprazole 40mg QD Furosemide 40mg QD Tramodol 50mg Q4 prn Cyclobenzaprine 10mg 1 tab QHS Pioglitazone 15mg QD Lisinopril 10mg QD Glimepiride 2mg 1 tab BID Folic acid 1mg QD Januvia 15mg QD Metformin 850mg BID Famotidine 20mg 1 tab BID Sertraline 100mg QD As per Lynne at [facility] pharmacy on [facility] ED Course- VS:110/57, p-104bpm, Spo2-99% Labs: troponin- negative, POC glucose: 69 H & H- 11.3/35/9, Plt: 203, MCV- 84.1, Plt: 203, PT/PTT/INR- 12.3/34/5/1.3 D-dimer: 453 AST/ALT: 43/25 Alk phos- 79 EKG: scanned to chart; rate of 103 CXR: no active pulmonary disease Lower ext doppler: negative for DVT; small right popliteal cyst 2.1 x 1.6cm UA: moderate leukocytes, neg nitrates, + microscopic WBC Present on Admission - Present on Admission Any Indicators Present on Admission: No History of DVT/PE: No History of Uncontrolled Diabetes: No Urinary Catheter: No Decubitus Ulcer Present: No Past Patient History - Tetanus Immunizations Tetanus Immunization: Unknown - Past Medical History & Family History Past Medical History?: Yes - Past Social History Alcohol: None Drugs: Denies - CARDIAC Hx Hypercholesterolemia: Yes Hx Hypertension: Yes - PULMONARY Hx Asthma: Yes Hx Chronic Obstructive Pulmonary Disease (COPD): Yes - NEUROLOGICAL Hx Neurological Disorder: No - HEENT Hx HEENT Problems: Yes Other/Comment: right eye blindness. left eye lens - RENAL Hx Chronic Kidney Disease: No - ENDOCRINE/METABOLIC Hx Endocrine Disorders: Yes Hx Diabetes Mellitus Type 2: Yes - HEMATOLOGICAL/ONCOLOGICAL Hx Anemia: Yes Hx Human Immunodeficiency Virus (HIV): No - INTEGUMENTARY Hx Dermatological Problems: No - MUSCULOSKELETAL/RHEUMATOLOGICAL Hx Musculoskeletal Disorders: No Hx Falls: No - GASTROINTESTINAL Hx Gall Bladder Disease: Yes - GENITOURINARY/GYNECOLOGICAL Hx Genitourinary Disorders: No - PSYCHIATRIC Hx Depression: Yes - SURGICAL HISTORY Hx Cholecystectomy: Yes - ANESTHESIA Hx Anesthesia: Yes Hx Anesthesia Reactions: No Hx Malignant Hyperthermia: No Meds Allergies/Adverse Reactions: Allergies Allergy/AdvReac Type Severity Reaction Status Date / Time EGG Allergy REDNESS Verified 08/09/18 11:49 Physical Exam - Constitutional Appears: In Acute Distress Additional comments: obese - Head Exam Head Exam: ATRAUMATIC Additional comments: round nontender 3cm nodule on parietal aspect of head; nonerythematous - Eye Exam Eye Exam: EOMI - ENT Exam ENT Exam: Mucous Membranes Moist Additional comments: edentulous - Neck Exam Neck exam: Negative for: Tenderness, Thyromegaly - Respiratory Exam Respiratory Exam: Rhonchi. absent: Respiratory Distress, Stridor - Cardiovascular Exam Cardiovascular Exam: RRR, +S1, +S2 Additional comments: tenderness to left side of chest - GI/Abdominal Exam GI & Abdominal Exam: Normal Bowel Sounds, Soft. absent: Guarding, Rigid, Tenderness - Extremities Exam Extremities exam: Positive for: calf tenderness - Neurological Exam Neurological exam: Alert, Oriented x3 - Psychiatric Exam Psychiatric exam: Normal Affect Results - Vital Signs Recent Vital Signs: Last Vital Signs Temp 98.0 F 08/09/18 11:34 Pulse 105 H 08/09/18 14:40 Resp 21 08/09/18 14:40 BP 140/77 08/09/18 14:40 Pulse Ox 99 02/01/19 14:43 - Labs Result Diagrams: 08/09/18 12:00 08/09/18 13:33 Labs: Laboratory Results - last 24 hr 08/09/18 08/09/18 08/09/18 12:00 12:00 12:00 WBC 6.7 RBC 4.27 Hgb 11.3 L D Hct 35.9 MCV 84.1 D MCH 26.5 L MCHC 31.5 L RDW 16.3 H Plt Count 203 MPV 10.1 Neut % (Auto) 86.1 H Lymph % (Auto) 8.8 L [place] % (Auto) 4.2 Eos % (Auto) 0.8 Baso % (Auto) 0.1 Neut # (Auto) 5.7 Lymph # (Auto) 0.6 L [place] # (Auto) 0.3 Eos # (Auto) 0.1 Baso # (Auto) 0.0 Neutrophils % (Manual) 85 H Lymphocytes % (Manual) 11 L Monocytes % (Manual) 4 Platelet Estimate Normal Large Platelets Present Anisocytosis (manual) Slight Ovalocytes Slight PT 12.3 INR 1.1 APTT 34.5 D-Dimer, Quantitative 453 H Sodium Potassium Chloride Carbon Dioxide Anion Gap BUN Creatinine Est GFR ( Amer) Est GFR (Non-Af Amer) POC Glucose (mg/dL) Random Glucose Calcium Total Bilirubin AST ALT Alkaline Phosphatase Troponin I < 0.0120 Total Protein Albumin Globulin Albumin/Globulin Ratio Urine Color Urine Clarity Urine pH Ur Specific [place] Urine Protein Urine Glucose (UA) Urine Ketones Urine Blood Urine Nitrate Urine Bilirubin Urine Urobilinogen Ur Leukocyte Esterase Urine RBC (Auto) Urine Microscopic WBC Ur Squamous Epith Cells Urine Bacteria 08/09/18 08/09/18 08/09/18 12:00 13:15 13:33 WBC RBC Hgb Hct MCV MCH MCHC RDW Plt Count MPV Neut % (Auto) Lymph % (Auto) [place] % (Auto) Eos % (Auto) Baso % (Auto) Neut # (Auto) Lymph # (Auto) [place] # (Auto) Eos # (Auto) Baso # (Auto) Neutrophils % (Manual) Lymphocytes % (Manual) Monocytes % (Manual) Platelet Estimate Large Platelets Anisocytosis (manual) Ovalocytes PT INR APTT D-Dimer, Quantitative Sodium 141 Potassium 4.6 Chloride 100 Carbon Dioxide 27 Anion Gap 19 BUN 19 H Creatinine 0.7 Est GFR ( Amer) > 60 Est GFR (Non-Af Amer) > 60 POC Glucose (mg/dL) 69 Random Glucose 75 Calcium 9.0 Total Bilirubin 0.6 AST 43 H D ALT 25 Alkaline Phosphatase 79 Troponin I Total Protein 7.2 Albumin 3.6 Globulin 3.6 Albumin/Globulin Ratio 1.0 Urine Color Yellow Urine Clarity Slighty-cloudy Urine pH 5.0 Ur Specific [place] 1.016 Urine Protein Negative Urine Glucose (UA) Neg Urine Ketones Negative Urine Blood Negative Urine Nitrate Negative Urine Bilirubin Negative Urine Urobilinogen 0.2-1.0 Ur Leukocyte Esterase Mod Urine RBC (Auto) 2 Urine Microscopic WBC 9 H Ur Squamous Epith Cells 8 H Urine Bacteria Occ H Assessment & Plan - Assessment and Plan (Free Text) Assessment: A/P: 77 y/o female with PMHx of Type II DM, HTN, HLD, and COPD (on home oxygen) brought to ED for evaluation of a dull left sided chest pain. 1. Chest pain with elevated d-dimers (453) -FU CTA -First troponin negative -Lower ext doppler: negative for DVT; small right popliteal cyst 2.1 x 1.6cm -CXR: no active pulmonary disease -FU repeat troponins & EKG -PT/PTT/INR- 12.3/34/5/1.3 2. DMII (Controlled) A1c 5.5 as of 04/09/2019) POC glucose: 69 -Continue Januvia 50mg PO -All other meds on hold given patient's hx of hypoglycemia -Hypoglycemia protocol in place -Continue Accuchecks 3. HTN (controlled) -Continue lisinopril 10mg QD -Continue furosemide 40mg QD 4. COPD (on home oxygen) -Continue advair 1 puff IH Q12 -Continue singulair 10mg PO HS -Continue oxygen via NC at 2L 5. Depression -Continue sertraline 100mg PO QD -1 dose of ceftriaxone given -Follow up urine culture 6. UTI UA: moderate leukocytes, neg nitrates, + microscopic WBC 7. Anemia -Continue iron supplementation -Continue folic acid 8. GI prophylaxis -Continue protonix 40mg QD 9. DVT prophylaxis -Continue lovenox 40mg SC QD <Bharat Kumar D - Last Filed: 08/09/18 19:05> Results - Vital Signs Recent Vital Signs: Last Vital Signs Temp 98.0 F 08/09/18 18:15 Pulse 107 H 08/09/18 18:15 Resp 18 08/09/18 18:15 BP 141/77 08/09/18 18:15 Pulse Ox 98 08/09/18 18:15 - Labs Result Diagrams: 08/09/18 12:00 08/09/18 13:33 Labs: Laboratory Results - last 24 hr 08/09/18 08/09/18 08/09/18 12:00 12:00 12:00 WBC 6.7 RBC 4.27 Hgb 11.3 L D Hct 35.9 MCV 84.1 D MCH 26.5 L MCHC 31.5 L RDW 16.3 H Plt Count 203 MPV 10.1 Neut % (Auto) 86.1 H Lymph % (Auto) 8.8 L [place] % (Auto) 4.2 Eos % (Auto) 0.8 Baso % (Auto) 0.1 Neut # (Auto) 5.7 Lymph # (Auto) 0.6 L [place] # (Auto) 0.3 Eos # (Auto) 0.1 Baso # (Auto) 0.0 Neutrophils % (Manual) 85 H Lymphocytes % (Manual) 11 L Monocytes % (Manual) 4 Platelet Estimate Normal Large Platelets Present Anisocytosis (manual) Slight Ovalocytes Slight PT 12.3 INR 1.1 APTT 34.5 D-Dimer, Quantitative 453 H Sodium Potassium Chloride Carbon Dioxide Anion Gap BUN Creatinine Est GFR ( Amer) Est GFR (Non-Af Amer) POC Glucose (mg/dL) Random Glucose Calcium Total Bilirubin AST ALT Alkaline Phosphatase Troponin I < 0.0120 Total Protein Albumin Globulin Albumin/Globulin Ratio Urine Color Urine Clarity Urine pH Ur Specific [place] Urine Protein Urine Glucose (UA) Urine Ketones Urine Blood Urine Nitrate Urine Bilirubin Urine Urobilinogen Ur Leukocyte Esterase Urine RBC (Auto) Urine Microscopic WBC Ur Squamous Epith Cells Urine Bacteria 08/09/18 08/09/18 08/09/18 12:00 13:15 13:33 WBC RBC Hgb Hct MCV MCH MCHC RDW Plt Count MPV Neut % (Auto) Lymph % (Auto) [place] % (Auto) Eos % (Auto) Baso % (Auto) Neut # (Auto) Lymph # (Auto) [place] # (Auto) Eos # (Auto) Baso # (Auto) Neutrophils % (Manual) Lymphocytes % (Manual) Monocytes % (Manual) Platelet Estimate Large Platelets Anisocytosis (manual) Ovalocytes PT INR APTT D-Dimer, Quantitative Sodium 141 Potassium 4.6 Chloride 100 Carbon Dioxide 27 Anion Gap 19 BUN 19 H Creatinine 0.7 Est GFR ( Amer) > 60 Est GFR (Non-Af Amer) > 60 POC Glucose (mg/dL) 69 Random Glucose 75 Calcium 9.0 Total Bilirubin 0.6 AST 43 H D ALT 25 Alkaline Phosphatase 79 Troponin I Total Protein 7.2 Albumin 3.6 Globulin 3.6 Albumin/Globulin Ratio 1.0 Urine Color Yellow Urine Clarity Slighty-cloudy Urine pH 5.0 Ur Specific [place] 1.016 Urine Protein Negative Urine Glucose (UA) Neg Urine Ketones Negative Urine Blood Negative Urine Nitrate Negative Urine Bilirubin Negative Urine Urobilinogen 0.2-1.0 Ur Leukocyte Esterase Mod Urine RBC (Auto) 2 Urine Microscopic WBC 9 H Ur Squamous Epith Cells 8 H Urine Bacteria Occ H Attending/Attestation - Attestation I have personally seen and examined this patient.: Yes I have fully participated in the care of the patient.: Yes I have reviewed all pertinent clinical information: Yes Notes (Text): 08/09/18 19:05 Patient seen and examined with resident. Case discussed and agreed with assessment and plan of management.
[2018-08-09] MEDS ORDERED: Pantoprazole 40 mg EC Tab PO SCH (15:15)
[2018-08-09] MEDS ORDERED: Enoxaparin 40 mg Syringe SC SCH (15:15)
[2018-08-09] MEDS ORDERED: Iodixanol 320 MG/ML 100 ML BOTTLE IV ONE (15:18)
[2018-08-09] MEDS ORDERED: Sodium Chloride 0.9% 50 ML IV ONE (15:18)
[2018-08-09] MEDS ORDERED: Pantoprazole 40 mg EC Tab PO ONE (16:02)
[2018-08-09] MEDS ORDERED: Dextrose 50% SYRINGE Inj (50 ml) IV PRN (16:09)
[2018-08-09] MEDS ORDERED: Glucagon Recombinant 1 mg Inj IM PRN (16:09)
[2018-08-09] MEDS ORDERED: Insulin Regular 100 units/ml SC SCH (16:30)
[2018-08-09] MEDS ORDERED: Morphine 4 MG/ML VIAL ONE (16:30)
[2018-08-09] MEDS ORDERED: Insulin Lispro (humaLOG) 100 Units/ml Inj SC SCH (16:30)
[2018-08-09] MEDS ORDERED: Morphine 4 MG/ML VIAL IVP ONE (16:45)
[2018-08-09] MEDS ORDERED: GlipiZIDE 5 mg SR Tab PO SCH (17:00)
[2018-08-09 17:48] VITALS: RESP 18
--- NOTE | 2018-08-09 18:08 | CT ---
Date of service: 08/09/2018 PROCEDURE: CT Chest with contrast (Pulmonary Angiogram) HISTORY: CP, SOB COMPARISON: None available. TECHNIQUE: Axial computed tomography images were obtained of the chest in the pulmonary arterial phase of enhancement. Coronal and sagittal reformatted images were created and reviewed. Intravenous contrast dose: 55 cc Visipaque 320. Mean Hounsfield value in the main pulmonary artery: 135.45 Radiation dose: Total exam DLP = 332.99 mGy-cm. This CT exam was performed using one or more of the following dose reduction techniques: Automated exposure control, adjustment of the mA and/or kV according to patient size, and/or use of iterative reconstruction technique. FINDINGS: PULMONARY ARTERIES: No large, central pulmonary emboli. Nondiagnostic study beyond lobar branches. The segmental and subsegmental emboli are not excluded based on the current study. Dilated main pulmonary artery consistent with pulmonary arterial hypertension. AORTA: No acute findings. No thoracic aortic aneurysm. Atherosclerotic calcification and mural plaque present. Findings are seen throughout the aorta LUNGS: Linear scarring/mass left apex. The area of interest measures 0.6 x 2.4 cm. PLEURAL SPACES: Unremarkable. No effusion or pneumothorax. HEART: Cardiomegaly. No evidence of acute, significant cardiovascular disease. LYMPH NODES: No lymphadenopathy. BONES, CHEST WALL: Kyphosis related to age indeterminate compression deformity T6 vertebral body. OTHER FINDINGS: Large hiatal hernia. This is a stable finding compared to the prior CT of the abdomen and pelvis performed 04/08/2018. IMPRESSION: No central, large pulmonary emboli. Limitations of the current examination: Both qualitative and quantitative assessment of opacification of pulmonary arteries precludes evaluation beyond the lobar branches for pulmonary emboli. Left upper lobe mass/atypical infiltrate. Follow-up to resolution recommended. Additional benign and/or incidental findings described above.
[2018-08-09 19:57] VITALS: BP 130/65; TEMP 98.2; O2SAT 99
[2018-08-09] MEDS ORDERED: Fluticasone-Salmeterol 250-50mcg Diskus IH SCH (21:00)
--- NOTE | 2018-08-09 22:50 | CARD ---
APPROVED REPORT Date of service: 08/09/2018 EKG Measurement Heart [id number] HI [id number] <Conclusion> Sinus tachycardia Marked baseline artifact anteroseptal infarct, age undetermined Diffuse NDSTT abnormalities CCR Abnormal ECG
--- NOTE | 2018-08-09 23:50 | CP.PCM.PCO ---
Against Medical Advice - AMA Patient Left Against Medical Advice: Received page from telemetry floor at 22:50; from EMILIA Bartlett, stating patient is dressed and states she wants to leave. Came to evaluate patient - patient sitting on chair in room, by neighbor's bed, stating she is leaving the hospital, that she came here "to get an xray" and now that the xray is done she wants to leave. Patient refusing to elaborate more in my presence, continues to say "I am leaving, I want to leave" in [place]. Discussed with patient that she came to hospital due to discomfort, shortness of breath, and would benefit from additional monitoring and treatment for COPD, evaluation for clots, and monitoring of respiratory status, treatment of possible not yet known conditions. Explained that leaving would be against medical advice, patient stated she understood. Asked patient if we can contact a family member to make them aware she is leaving but patient refused, stated she lives alone and came here alone. Patient AAO x3; knows her name, , current year, current president. All above discussed in presence of Dr. Mason, and EMILIA Bartlett. Trained staff member Leonie Dorado used for [place] interpretation of AMA form. AMA form discussed in detail with patient, patient stated she is aware she is leaving against medical advice; benefits include continued treatment and monitoring of respiratory status, and risks include but are not limited to worsening shortness of breath, respiratory failure and . Patient verbalized understanding of all above. Stated she had O2 at home. She did not appear short of breath during conversation. Patient signed AMA form in presence of this provider, EMILIA Bartlett, and staffing clerk Leonie. She was given opportunity to ask questions and reconsider. Encouraged to follow up with PMD within 2 days. Above discussed with Dr. Mason.
--- NOTE | 2018-08-10 01:10 | CP.PCM.DIS ---
Provider - Provider Date of Admission: 08/09/18 14:41 Attending physician: Bharat Kumar MD Primary care physician: Dr Kumar Time Spent in preparation of Discharge (in minutes): 25 Diagnosis - Discharge Diagnosis (1) COPD (chronic obstructive pulmonary disease) Status: Acute (2) HTN (hypertension), benign Status: Acute (3) Chest pain at rest Status: Acute (4) Diabetes mellitus type II, controlled Status: Acute (5) UTI (urinary tract infection) Status: Acute Hospital Course - Lab Results Lab Results: Most Recent Lab Values WBC 6.7 K/uL (4.8-10.8) 08/09/18 12:00 RBC 4.27 Mil/uL (3.80-5.20) 08/09/18 12:00 Hgb 11.3 g/dL (12.0-16.0) L D 08/09/18 12:00 Hct 35.9 % (34.0-47.0) 08/09/18 12:00 MCV 84.1 fl (81.0-99.0) D 08/09/18 12:00 MCH 26.5 pg (27.0-31.0) L 08/09/18 12:00 MCHC 31.5 g/dL (33.0-37.0) L 08/09/18 12:00 RDW 16.3 % (11.5-14.5) H 08/09/18 12:00 Plt Count 203 K/uL (130-400) 08/09/18 12:00 MPV 10.1 fl (7.2-11.7) 08/09/18 12:00 Neut % (Auto) 86.1 % (50.0-75.0) H 08/09/18 12:00 Lymph % (Auto) 8.8 % (20.0-40.0) L 08/09/18 12:00 [place] % (Auto) 4.2 % (0.0-10.0) 08/09/18 12:00 Eos % (Auto) 0.8 % (0.0-4.0) 08/09/18 12:00 Baso % (Auto) 0.1 % (0.0-2.0) 08/09/18 12:00 Neut # (Auto) 5.7 K/uL (1.8-7.0) 08/09/18 12:00 Lymph # (Auto) 0.6 K/uL (1.0-4.3) L 08/09/18 12:00 [place] # (Auto) 0.3 K/uL (0.0-0.8) 08/09/18 12:00 Eos # (Auto) 0.1 K/uL (0.0-0.7) 08/09/18 12:00 Baso # (Auto) 0.0 K/uL (0.0-0.2) 08/09/18 12:00 Neutrophils % (Manual) 85 % (42-75) H 08/09/18 12:00 Lymphocytes % (Manual) 11 % (20-50) L 08/09/18 12:00 Monocytes % (Manual) 4 % (0-10) 08/09/18 12:00 Platelet Estimate Normal (NORMAL) 08/09/18 12:00 Large Platelets Present 08/09/18 12:00 Anisocytosis (manual) Slight 08/09/18 12:00 Ovalocytes Slight 08/09/18 12:00 PT 12.3 Seconds (9.8-13.1) 08/09/18 12:00 INR 1.1 08/09/18 12:00 APTT 34.5 Seconds (25.6-37.1) 08/09/18 12:00 D-Dimer, Quantitative 453 ng/mlDDU (0-230) H 08/09/18 12:00 Sodium 141 mmol/l (132-148) 08/09/18 13:33 Potassium 4.6 MMOL/L (3.6-5.0) 08/09/18 13:33 Chloride 100 mmol/L (98-107) 08/09/18 13:33 Carbon Dioxide 27 mmol/L (22-30) 08/09/18 13:33 Anion Gap 19 (10-20) 08/09/18 13:33 BUN 19 mg/dl (7-17) H 08/09/18 13:33 Creatinine 0.7 mg/dl (0.7-1.2) 08/09/18 13:33 Est GFR ( Amer) > 60 08/09/18 13:33 Est GFR (Non-Af Amer) > 60 08/09/18 13:33 POC Glucose (mg/dL) 69 mg/dL (65-110) 08/09/18 12:00 Random Glucose 75 mg/dL (65-105) 08/09/18 13:33 Calcium 9.0 mg/dL (8.4-10.2) 08/09/18 13:33 Total Bilirubin 0.6 mg/dl (0.2-1.3) 08/09/18 13:33 AST 43 U/L (14-36) H D 08/09/18 13:33 ALT 25 U/L (9-52) 08/09/18 13:33 Alkaline Phosphatase 79 U/L (38-126) 08/09/18 13:33 Troponin I < 0.0120 ng/mL (0.00-0.120) 08/09/18 20:30 Total Protein 7.2 G/DL (6.3-8.2) 08/09/18 13:33 Albumin 3.6 g/dL (3.5-5.0) 08/09/18 13:33 Globulin 3.6 gm/dL (2.2-3.9) 08/09/18 13:33 Albumin/Globulin Ratio 1.0 (1.0-2.1) 08/09/18 13:33 Urine Color Yellow (YELLOW) 08/09/18 13:15 Urine Clarity Slighty-cloudy (Clear) 08/09/18 13:15 Urine pH 5.0 (5.0-8.0) 08/09/18 13:15 Ur Specific [place] 1.016 (1.003-1.030) 08/09/18 13:15 Urine Protein Negative mg/dL (NEGATIVE) 08/09/18 13:15 Urine Glucose (UA) Neg mg/dL (NEGATIVE) 08/09/18 13:15 Urine Ketones Negative mg/dL (NEGATIVE) 08/09/18 13:15 Urine Blood Negative (NEGATIVE) 08/09/18 13:15 Urine Nitrate Negative (NEGATIVE) 08/09/18 13:15 Urine Bilirubin Negative (NEGATIVE) 08/09/18 13:15 Urine Urobilinogen 0.2-1.0 mg/dL (0.2-1.0) 08/09/18 13:15 Ur Leukocyte Esterase Mod [place]/uL (Negative) 08/09/18 13:15 Urine RBC (Auto) 2 /hpf (0-3) 08/09/18 13:15 Urine Microscopic WBC 9 /hpf (0-5) H 08/09/18 13:15 Ur Squamous Epith Cells 8 /hpf (0-5) H 08/09/18 13:15 Urine Bacteria Occ (<OCC) H 08/09/18 13:15 - Hospital Course Hospital Course: 77 y/o female with PMHx of Type II DM, HTN, HLD, and COPD (on home oxygen) brought to ED for evaluation of a dull left sided chest pain. This patient was admitted to the Telemetry unit. She later decided that she would sign out against Medical Advice. Patient AAO x3; knows her name, , current year, current president. The resident along with zoology teacher explained the risk of leaving AMA but the patient still wanted to leave. She signed AMA and was encouraged to follow up with PMD within 2 days. 1. Chest pain with elevated d-dimers (453) -FU CTA -First troponin negative -Lower ext doppler: negative for DVT; small right popliteal cyst 2.1 x 1.6cm -CXR: no active pulmonary disease 2. DMII (Controlled) A1c 5.5 as of 04/09/2019) POC glucose: 69 -Continue Januvia 50mg PO -Accuchecks 3. HTN (controlled) -Continue lisinopril 10mg QD -Continue furosemide 40mg QD 4. COPD (on home oxygen) -Continue advair 1 puff IH Q12 -Continue singulair 10mg PO HS -Continue oxygen via NC at 2L 5. Depression -Continue sertraline 100mg PO QD -1 dose of ceftriaxone given -Follow up urine culture 6. UTI UA: moderate leukocytes, neg nitrates, + microscopic WBC 7. Anemia -Continue iron supplementation -Continue folic acid 8. GI prophylaxis -Continue protonix 40mg QD Terrence Mason - Date & Time of H&P Date of H&P: 08/09/18 Time of H&P: 15:08 Discharge Exam - Head Exam Head Exam: ATRAUMATIC Discharge Plan - Follow Up Plan Condition: STABLE Disposition: AGAINST MEDICAL ADVICE Patient education suggested?: Yes Instructions: Urinary Tract Infection in Women (DC) Additional Instructions: Return to the ED if return of chest pain. Follow up with PMD in 2 days
[2018-08-10] MEDS ORDERED: Azithromycin 500 MG in Sodium Chloride 0.9% 250 ML IVPB SCH (09:00)
[2018-08-10 10:53] VITALS: PULSE 106
== END 2018-08-09 23:45 | disposition left against medical advice (07) ==
LOC: H.ER 11:24 → INTOOBSV 14:41 → H.ERHOLD 14:41 → H.TEL 18:36
DX: R07.9 Chest pain, unspecified (principal); J44.9 Chronic obstructive pulmonary disease, unspecified; E11.9 Type 2 diabetes mellitus without complications; I10 Essential (primary) hypertension; Z91.012 Allergy to eggs; F32.9 Major depressive disorder, single episode, unspecified; E78.00 Pure hypercholesterolemia, unspecified; N39.0 Urinary tract infection, site not specified; M79.604 Pain in right leg; M79.605 Pain in left leg; E78.5 Hyperlipidemia, unspecified; Z99.81 Dependence on supplemental oxygen; E66.9 Obesity, unspecified; Z68.37 Body mass index [BMI] 37.0-37.9, adult; Z79.84 Long term (current) use of oral hypoglycemic drugs; H54.61 Unqualified visual loss, right eye, normal vision left eye; R79.1 Abnormal coagulation profile; D64.9 Anemia, unspecified
CPT/HCPCS: 36415; 71045; 71275; 80053; 81003; 82948; 83036; 84484; 85025; 85378; 85610; 85730; 87040; 87086; 87181; 93005; 93970; 96372; 96374; 96375; 99285; G0378; J0696; J1650; J1885; J2270; Q9967

== ENCOUNTER 2018-09-26 05:34 | Observation (INO) | payer OTHER ==
--- NOTE | 2018-09-26 06:38 | ED PDOC ---
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 Patient reports that she fell 3 times today in her house and is unsure how she fell each time. She reports she didn't get dizzy but each time ended up on the floor. She also reports hitting her knees and having knee pain. Patient is not sure if she hit her head. Patient states that she does not have chest pain but she does have shortness of breath, however she states that she "always has shortness of breath." She reports calling the technical supervisor the first 2 times to ask for help getting up but the 3rd time she called EMS because she was embarrassed to call the technical supervisor again. Patient also sates she has not had force in her right wrist since last Sunday, 6 days ago. Past Medical History Reviewed: Historical Data, Nursing Documentation, Vital Signs Vital Signs: Last Vital Signs Temp 98.6 F 09/26/18 05:40 Pulse 102 H 09/26/18 05:40 Resp 19 09/26/18 05:40 BP 128/103 H 09/26/18 05:40 Pulse Ox 100 09/26/18 05:40 - Medical History PMH: Anemia, Asthma, CHF, COPD, Depression, Diabetes, Gall Bladder Disease, HTN, Hypercholesterolemia Denies: HIV, Chronic Kidney Disease - Surgical History Surgical History: Cholecystectomy - Family History Family History: States: Unknown Family Hx - Home Medications Home Medications: Ambulatory Orders Medication Instructions Recorded Lisinopril [Zestril] 10 mg PO DAILY 10/02/16 Montelukast [Singulair] 10 mg PO HS 10/02/16 Furosemide [Lasix] 20 mg PO DAILY #30 tab 10/04/16 Fluticasone/Salmeterol [Advair 1 puff IH Q12 04/08/18 250-50 Diskus] Folic Acid 1 mg PO DAILY 04/08/18 traMADol [Ultram] 50 mg PO Q6 PRN 04/08/18 SITagliptin [Januvia] 50 mg PO DAILY #30 tab 04/09/18 Glimepiride [amaRYL] 2 mg PO BID 04/23/18 Pioglitazone HCl [Actos] 15 mg PO DAILY 04/23/18 Albuterol 0.083% [Albuterol 0.083% 3 ml IH Q6 PRN 08/09/18 Inhal Ale (2.5 mg/3 ml) UD] Albuterol Sulfate [Proair Hfa] 2 puff IH Q4 PRN 08/09/18 Cyclobenzaprine [Flexeril] 10 mg PO HS 08/09/18 Famotidine [Pepcid] 20 mg PO BID 08/09/18 Pantoprazole Sodium [Protonix] 40 mg PO DAILY 08/09/18 metFORMIN [glucOPHAGE] 850 mg PO BID 08/09/18 - Allergies Allergies/Adverse Reactions: Allergies Allergy/AdvReac Type Severity Reaction Status Date / Time EGG Allergy REDNESS Verified 09/26/18 05:46 Review of Systems ROS Statement: Except As Marked, All Systems Reviewed And Found Negative Respiratory: Positive for: Shortness of Breath Musculoskeletal: Positive for: Leg Pain (knee) Neurological: Positive for: Weakness (right wrist no force). Negative for: Dizziness Physical Exam - Reviewed Nursing Documentation Reviewed: Yes Vital Signs Reviewed: Yes - Physical Exam Appears: Positive for: No Acute Distress Head Exam: Positive for: ATRAUMATIC (no signs of head trauma), NORMAL INSPECTI ON, NORMOCEPHALIC Skin: Positive for: Normal Color, Warm, DRY Eye Exam: Positive for: EOMI, Normal appearance, PERRL ENT: Positive for: Normal ENT Inspection Neck: Positive for: Normal, Painless ROM Cardiovascular/Chest: Positive for: Regular Rate, Rhythm. Negative for: Murmur Respiratory: Positive for: Normal Breath Sounds. Negative for: Respiratory Distress Gastrointestinal/Abdominal: Positive for: Normal Exam, Soft. Negative for: Tenderness Back: Positive for: Normal Inspection. Negative for: L CVA Tenderness, R CVA Tenderness, Vertebral Tenderness (no tenderness of C-spine, L-spine, T-spine), Other (step off or crepitus of T spine L spine C Spine) Extremity: Positive for: Tenderness (right knee, right hip; nontender upper extremities), Other (right wrist drop; 5/5 strength in all 4 extremities (excluding right wrist); no hip laxity; bruising of left shoulder in healing stages). Negative for: Normal ROM (full ROM of left knee, limited ROM of right knee secondary to pain) Neurological/Psych: Positive for: Awake, Alert, Normal Tone, Symmetric/Intact Strength (5/5 strength in all 4 extremities excluding right wrist), Oriented ( x3), Cerebellar Tests (normal), technology analyst II-XII (intact). Negative for: Lethargic, Listless, Motor/Sensory Deficits, Facial Droop - ECG ECG Rhythm: Positive for: Normal QRS, Normal ST Segment, Nonspecific Changes Rate: 98 O2 Sat by Pulse Oximetry: 100 (RA) Pulse Ox Interpretation: Normal Medical Decision Making Medical Decision Making: Time: 06:35 A/P: 77 y/o with history of HTM, high cholesterol, diabetes, CHF, and COPD presenting with frequent falls. Unclear if falls are mechanical or syncopal. * CT C-spine * CT Head * CXR * Rad - Knee * RAD - Pelvis * RAD - Wrist * Labs 07:00 Patient care endorsed to Dr. Mckinley pending labs, CT scans and x-rays Scribe Attestation: Documented by Jose J Clay, acting as a scribe for Julián Ross MD Provider Scribe Attestation: All medical record entries made by the Scribe were at my direction and personally dictated by me. I have reviewed the chart and agree that the record accurately reflects my personal performance of the history, physical exam, medical decision making, and the department course for this patient. I have also personally directed, reviewed, and agree with the discharge instructions and disposition. Disposition - Clinical Impression Clinical Impression: Fall - Patient ED Disposition Is Patient to be Admitted: Transfer of Care - Disposition Disposition: Transfer of Care Disposition Time: 07:00 Condition: STABLE Forms: [facility] (Lao) Patient Signed Over To: Kishore Mckinley III Handoff Comments: pending workup
[2018-09-26 07:17] LABS: INR 1.2; PROTHROMBIN TIME 13.2 Seconds (9.8-13.1)
[2018-09-26 07:18] LABS: BASO % 0.2 % (0.0-2.0); EOS % 0.4 % (0.0-4.0); LYMPH # 1.1 K/uL (1.0-4.3); LYMPH % 16.3 % (20.0-40.0); MEAN CELL VOLUME 83.8 fl (81.0-99.0); MEAN CORPUSCULAR HEMOGLOBIN 26.9 pg (27.0-31.0); MEAN CORPUSCULAR HGB CONC 32.1 g/dL (33.0-37.0); MEAN PLATELET VOLUME 9.5 fl (7.2-11.7); MONO # 0.4 K/uL (0.0-0.8); NEUT # 5.4 K/uL (1.8-7.0); NEUT % 77.1 % (50.0-75.0); RBC 4.08 Mil/uL (3.80-5.20); RED CELL DISTRIBUTION WIDTH 16.3 % (11.5-14.5)
[2018-09-26 07:19] LABS: PARTIAL THROMBOPLASTIN TIME 33.8 Seconds (25.6-37.1)
[2018-09-26 07:26] LABS: ALB/GLOB RATIO 0.9 (1.0-2.1); ALBUMIN 3.4 g/dL (3.5-5.0); ALT/SGPT 16 U/L (9-52); AST/SGOT 24 U/L (14-36); BLOOD UREA NITROGEN 23 mg/dl (7-17); CALCIUM 9.9 mg/dL (8.4-10.2); GFR NON-AFRICAN AMERICAN 54
--- NOTE | 2018-09-26 07:45 | ED PDOC ---
- Laboratory Results Result Diagrams: 09/26/18 06:50 09/26/18 06:50 Lab Results: PT 13.2 Seconds (9.8-13.1) H 09/26/18 06:50 INR 1.2 09/26/18 06:50 APTT 33.8 Seconds (25.6-37.1) 09/26/18 06:50 Troponin I < 0.0120 ng/mL (0.00-0.120) 09/26/18 06:50 Total Bilirubin 0.4 mg/dl (0.2-1.3) 09/26/18 06:50 AST 24 U/L (14-36) 09/26/18 06:50 ALT 16 U/L (9-52) 09/26/18 06:50 Alkaline Phosphatase 55 U/L (38-126) 09/26/18 06:50 Total Protein 7.0 G/DL (6.3-8.2) 09/26/18 06:50 Albumin 3.4 g/dL (3.5-5.0) L 09/26/18 06:50 Globulin 3.6 gm/dL (2.2-3.9) 09/26/18 06:50 Albumin/Globulin Ratio 0.9 (1.0-2.1) L 09/26/18 06:50 - ECG O2 Sat by Pulse Oximetry: 100 (RA) Pulse Ox Interpretation: Normal Medical Decision Making Medical Decision Making: Time: 0700 -- Patient endorsed to me by Dr. Ross, pending ER workup, re-assessment and final ER disposition. Time: 728 CT scan of the head. CLINICAL HISTORY: Fall. Trauma. TECHNIQUE: Multiple axial CT images were obtained through the brain without IV contrast material. COMMENTS: 1.8 cm left frontal subgaleal calcified sebaceous cyst. Benign chronic incidental finding. There is normal configuration of sella turcica. There are no intra or extra- axial collections. There is no mass effect or midline shift. There is no evidence of hematoma formation. No hydrocephalus is present. The ventricles are symmetrical. No abnormal calcifications are present. There is diffuse age-appropriate cerebellar and cerebral atrophy with proportionally dilated ventricles and cortical sulci. There are bilateral periventricular and subcortical white matter hypolucencies compatible with mild chronic microvascular disease. Otherwise, no significant focal abnormalities are seen either in the posterior fossa or supratentorial compartment. IMPRESSION: 1. Age-appropriate cerebellar and cerebral atrophy. 2. Mild chronic microvascular disease. 3. No evidence of acute intracranial pathology. Thank you for your kind referral of this patient. Electronically signed on Sep 26, 2018 7:29:37 AM EDT by: Davina Cuellar M.D., Certified by KEVIN SCHMITZ, Neuroradiology Time: 730 CT scan of the cervical spine without contrast. Indication: Trauma. Pain. Technique: Axial CT scan images without contrast. Reformatted coronal and sagittal images. Findings: Grade 1 anterolisthesis of C3 on C4. Grade I retrolisthesis of C5 on C6. There are diffuse spondylotic changes. Findings are demonstrated by disc space narrowing, osteophyte formation and degenerative endplate changes. Facet joint arthropathy is noted. No fracture or dislocation is seen. No aggressive bone lesion is noted. Impression: Spondylosis. Multilevel facet joint arthropathy. No acute bone pathology. Electronically signed on Sep 26, 2018 7:31:36 AM EDT by: Davina Cuellar M.D., Certified by KEVIN SCHMITZ, Neuroradiology Time: 843 -- Spoke to hospitalist, Dr. Barksdale who will be accepting the patient for admission. Hospitalist requesting repeat accucheck. Scribe Attestation: Documented by Ezio Khalil, acting as a scribe Fish Mckinley DO Provider Scribe Attestation: All medical record entries made by the Scribe were at my direction and personally dictated by me. I have reviewed the chart and agree that the record accurately reflects my personal performance of the history, physical exam, [facility] decision making, and the department course for this patient. I have also personally directed, reviewed, and agree with the discharge instructions and disposition. Disposition Counseled Patient/Family Regarding: Studies Performed, Diagnosis, Need For Followup - Clinical Impression Clinical Impression: Hypoglycemia, Wrist drop, Fall, Syncope - POA Present On Arrival: Poor Glycemic Control - Disposition Disposition: Admitted as In-Patient Disposition Time: 07:45 Condition: STABLE
[2018-09-26 08:58] LABS: SQUAMOUS EPITHIAL 6 /hpf (0-5); URINE BILIRUBIN NEGATIVE (NEGATIVE); URINE BLOOD NEGATIVE (NEGATIVE); URINE CLARITY CLEAR (Clear); URINE COLOR YELLOW (YELLOW); URINE GLUCOSE (UA) NEG (NEGATIVE); URINE LEUKOCYTE ESTERASE NEG Leu/uL (Negative); URINE PROTEIN NEGATIVE (NEGATIVE); URINE UROBILINOGEN 0.2-1.0 mg/dL (0.2-1.0)
[2018-09-26 09:08] LABS: BENZODIAZEPINES, UR NEGATIVE (NEGATIVE); PHENCYCLIDINE, UR NEGATIVE (NEGATIVE)
[2018-09-26 09:11] LABS: BARBITURATES, UR NEGATIVE (NEGATIVE); OPIATES, UR NEGATIVE (NEGATIVE)
--- NOTE | 2018-09-26 09:33 | RAD ---
Date of service: 09/26/2018 PROCEDURE: Bilateral Knee Radiographs. HISTORY: fall, trauma COMPARISON: None. FINDINGS: BONES: Right Knee: On frontal view there is a horizontal lucency over the medial right femoral condyle-this could be artifactual-however subchondral fracture of unclear cyst chronicity given this prominent sclerosis here cannot be entirely excluded. Left Knee: No fracture appreciated JOINTS: Right Knee: Severe multi compartmental osteoarthrosis most pronounced medial femoral tibial compartment Left knee: Osteoarthrosis much less on this left knee SOFT TISSUES: Right Knee: Normal. Left Knee: Normal. JOINT EFFUSION: Right Knee: Present Left Knee: None. OTHER FINDINGS: None. IMPRESSION: Indeterminate horizontal subcortical radiolucency right medial femoral condyle-this could be artifactual due to projection. However a subchondral fracture here nondisplaced cannot be excluded. Given the surrounding sclerosis-a chronic subchondral fracture is possible. Acute on chronic pathology not excluded. An asymmetrical right knee joint effusion is present If needed, CT or MRI of the right knee should be definitive. Comments: Study marked for PA review .
[2018-09-26] MEDS ORDERED: Albuterol 0.083% Inhal Sol (2.5 mg/3 mL) UD IH PRN (10:07)
[2018-09-26] MEDS ORDERED: Albuterol HFA 90 mcg/actuation (8 g) IH PRN (10:07)
--- NOTE | 2018-09-26 11:33 | CT ---
Date of service: 09/26/2018 PROCEDURE: CT HEAD WITHOUT CONTRAST. HISTORY: fall trauma COMPARISON: None available. TECHNIQUE: Axial computed tomography images were obtained through the head/brain without intravenous contrast. Supplemental Coronal and Sagittal projections created and reviewed. Radiation dose: Total exam DLP = 690.90 mGy-cm. This CT exam was performed using one or more of the following dose reduction techniques: Automated exposure control, adjustment of the mA and/or kV according to patient size, and/or use of iterative reconstruction technique. FINDINGS: HEMORRHAGE: No intracranial hemorrhage. BRAIN: No mass effect or edema. Cortical and cerebellar atrophy, periventricular small vessel disease. VENTRICLES: Unremarkable. No hydrocephalus. CALVARIUM: Unremarkable. PARANASAL SINUSES: Unremarkable as visualized. No significant inflammatory changes. MASTOID AIR CELLS: Unremarkable as visualized. No inflammatory changes. OTHER FINDINGS: Subcutaneous calcified likely sebaceous cyst left frontal region. IMPRESSION: No acute intracranial abnormalities. No significant findings to account for the clinical presentation. Concordant results (preliminary interpretation) provided by [facility]. Procedure Completed: 07:00. Preliminary Report: Interpreted and electronically signed: 07:29. Final Interpretation: 11:29.
--- NOTE | 2018-09-26 11:48 | CT ---
Date of service: 09/26/2018 PROCEDURE: CT Cervical Spine without contrast HISTORY: fall, trauma COMPARISON: None available. TECHNIQUE: Axial computed tomography images were obtained of the cervical spine without the use of intravenous contrast. Coronal and sagittal reformatted images were created and reviewed. Radiation dose: Total exam DLP = 376.43 mGy-cm. This CT exam was performed using one or more of the following dose reduction techniques: Automated exposure control, adjustment of the mA and/or kV according to patient size, and/or use of iterative reconstruction technique. FINDINGS: VERTEBRAE: No fracture. Normal alignment. No destructive bony lesion. DISCS/SPINAL CANAL/NEURAL FORAMINA: Multilevel cervical spondylosis primarily C3-4, C4-5 and C5-6. No evidence of jumped or locked facet. PARASPINAL SOFT TISSUES: Unremarkable. OTHER FINDINGS: None. IMPRESSION: Multilevel degenerative changes, mild-moderate. No acute findings. Concordant results (preliminary interpretation) provided by [place]. Procedure Completed: 07:03. Preliminary Report: Interpreted and electronically signed: 07:31. Final Interpretation: 11:45.
--- NOTE | 2018-09-26 12:52 | RAD ---
Date of service: 09/26/2018 PROCEDURE: CHEST RADIOGRAPH, 1 VIEW HISTORY: fall COMPARISON: 08/09/2018. FINDINGS: LUNGS: Clear. PLEURA: No pneumothorax or pleural fluid seen. CARDIOVASCULAR: Atherosclerotic calcifications identified primarily aortic arch. No radiographic findings to suggest acute or significant cardiovascular disease. OSSEOUS STRUCTURES: No significant abnormalities. VISUALIZED UPPER ABDOMEN: Normal. OTHER FINDINGS: None. IMPRESSION: No active disease.No significant interval change compared to the prior examination(s).
--- NOTE | 2018-09-26 12:53 | RAD ---
Date of service: 09/26/2018 PROCEDURE: Right Wrist Radiographs. HISTORY: fall, trauma COMPARISON: None. FINDINGS: BONES: Normal. No fracture. JOINTS: Osteoarthritic changes limited to carpal 1st metacarpal joint. SOFT TISSUES: Normal. OTHER FINDINGS: None. IMPRESSION: No acute findings related to/ accounting for the clinical presentation.
--- NOTE | 2018-09-26 12:54 | RAD ---
Date of service: 09/26/2018 PROCEDURE: Radiographs of the pelvis. HISTORY: fall, trauma COMPARISON: None. FINDINGS: BONES: Pelvic Bones: Unremarkable. Hips: Grossly unremarkable. JOINTS: Sacroiliac Joints: Unremarkable. Pubic Symphysis: Unremarkable. OTHER FINDINGS: Components of left JOEY in satisfactory position and alignment. IMPRESSION: No acute findings related to/ accounting for the clinical presentation.
[2018-09-26] MEDS ORDERED: Dextrose 50% SYRINGE Inj (50 ml) ONE (13:02)
[2018-09-26] MEDS ORDERED: Glucagon Recombinant 1 mg Inj IM PRN (13:04)
[2018-09-26] MEDS ORDERED: Dextrose 50% SYRINGE Inj (50 ml) IV PRN (13:04)
--- NOTE | 2018-09-26 13:30 | CP.PCM.HP ---
<Lizzette Wilder - Last Filed: 09/26/18 16:25> History of Present Illness - History of Present Illness History of Present Illness: 77 y/o female with PMHx of Type II DM, HTN, HLD, and COPD (on home oxygen) was brought into the by ambulance for multiple falls at home. Patient states she had fell on sunday and ever since then she has also had a right wrist drop. Patient states she has a homemaker at home who takes care of 5 hours a day x6days. States she was unable to get out of bed today and that had prompted her to call the ED. Patients is alert and awake. Patient is not oriented to time. Denies any fever, chills, nausea, vomitting, sweating, dizziness or lightheadedness. Patient admits to pain to her right knee and states it is minimal and has been present since her surgery. PMD: Dr. Duran PMHx: Obesity, Type II DM, HTN, HLD, COPD (on home oxygen) & low normal LVEF 50% with impaired diastolic relaxation PSHx: Left Hip surgery, cholecystectomy & hysterectomy Allergies: NKDA FHx: unknown Social Hx: denies cigarette, EtOH or elicit drug use; lives alone Status: full code See med Rec Present on Admission - Present on Admission Any Indicators Present on Admission: No Past Patient History - Tetanus Immunizations Tetanus Immunization: Unknown - Past Medical History & Family History Past Medical History?: Yes - Past Social History Smoking Status: Never Smoked - CARDIAC Hx Congestive Heart Failure: Yes Hx Hypercholesterolemia: Yes Hx Hypertension: Yes - PULMONARY Hx Asthma: Yes Hx Chronic Obstructive Pulmonary Disease (COPD): Yes - NEUROLOGICAL Hx Neurological Disorder: No - HEENT Hx HEENT Problems: Yes - RENAL Hx Chronic Kidney Disease: No - ENDOCRINE/METABOLIC Hx Endocrine Disorders: Yes Hx Diabetes Mellitus Type 2: Yes - HEMATOLOGICAL/ONCOLOGICAL Hx Anemia: Yes Hx Human Immunodeficiency Virus (HIV): No - INTEGUMENTARY Hx Dermatological Problems: No - MUSCULOSKELETAL/RHEUMATOLOGICAL Hx Musculoskeletal Disorders: No Hx Falls: Yes (Unknown.) - GASTROINTESTINAL Hx Gall Bladder Disease: Yes - GENITOURINARY/GYNECOLOGICAL Hx Genitourinary Disorders: No - PSYCHIATRIC Hx Depression: Yes Hx Substance Use: No (Unknown) - SURGICAL HISTORY Hx Cholecystectomy: Yes - ANESTHESIA Hx Anesthesia: Yes Hx Anesthesia Reactions: No Hx Malignant Hyperthermia: No Meds Allergies/Adverse Reactions: Allergies Allergy/AdvReac Type Severity Reaction Status Date / Time EGG Allergy REDNESS Verified 09/26/18 05:46 Physical Exam - Constitutional Appears: Well, Non-toxic, No Acute Distress - Head Exam Head Exam: ATRAUMATIC, NORMOCEPHALIC - Eye Exam Eye Exam: Normal appearance Pupil Exam: NORMAL ACCOMODATION - ENT Exam ENT Exam: Mucous Membranes Moist - Respiratory Exam Respiratory Exam: Clear to Auscultation Bilateral, NORMAL BREATHING PATTERN - Cardiovascular Exam Cardiovascular Exam: REGULAR RHYTHM, +S1 - Neurological Exam Neurological exam: Alert - Psychiatric Exam Psychiatric exam: Normal Affect Results - Vital Signs Recent Vital Signs: Last Vital Signs Temp 98.8 F 09/26/18 12:04 Pulse 105 H 09/26/18 13:12 Resp 20 09/26/18 13:12 BP 143/74 09/26/18 13:12 Pulse Ox 100 09/26/18 13:12 - Labs Result Diagrams: 09/26/18 06:50 09/26/18 06:50 Labs: Laboratory Results - last 24 hr 09/26/18 09/26/18 09/26/18 05:53 06:50 06:50 WBC 7.0 RBC 4.08 Hgb 11.0 L Hct 34.2 MCV 83.8 MCH 26.9 L MCHC 32.1 L RDW 16.3 H Plt Count 263 MPV 9.5 Neut % (Auto) 77.1 H Lymph % (Auto) 16.3 L [place] % (Auto) 6.0 Eos % (Auto) 0.4 Baso % (Auto) 0.2 Neut # (Auto) 5.4 Lymph # (Auto) 1.1 [place] # (Auto) 0.4 Eos # (Auto) 0.0 Baso # (Auto) 0.0 PT INR APTT Sodium 147 Potassium 4.1 Chloride 107 Carbon Dioxide 29 Anion Gap 15 BUN 23 H Creatinine 1.0 Est GFR ( Amer) > 60 Est GFR (Non-Af Amer) 54 POC Glucose (mg/dL) 92 Random Glucose 54 L Calcium 9.9 Total Bilirubin 0.4 AST 24 ALT 16 Alkaline Phosphatase 55 Troponin I < 0.0120 Total Protein 7.0 Albumin 3.4 L Globulin 3.6 Albumin/Globulin Ratio 0.9 L Urine Color Urine Clarity Urine pH Ur Specific [place] Urine Protein Urine Glucose (UA) Urine Ketones Urine Blood Urine Nitrate Urine Bilirubin Urine Urobilinogen Ur Leukocyte Esterase Ur Squamous Epith Cells Hyaline Casts Urine Opiates Screen Urine Methadone Screen Ur Barbiturates Screen Ur Phencyclidine Scrn Ur Amphetamines Screen U Benzodiazepines Scrn U Oth Cocaine Metabols U Cannabinoids Screen Alcohol, Quantitative < 10 Blood Type Antibody Screen BBK History Checked 09/26/18 09/26/18 09/26/18 06:50 06:50 08:45 WBC RBC Hgb Hct MCV MCH MCHC RDW Plt Count MPV Neut % (Auto) Lymph % (Auto) [place] % (Auto) Eos % (Auto) Baso % (Auto) Neut # (Auto) Lymph # (Auto) [place] # (Auto) Eos # (Auto) Baso # (Auto) PT 13.2 H INR 1.2 APTT 33.8 Sodium Potassium Chloride Carbon Dioxide Anion Gap BUN Creatinine Est GFR ( Amer) Est GFR (Non-Af Amer) POC Glucose (mg/dL) Random Glucose Calcium Total Bilirubin AST ALT Alkaline Phosphatase Troponin I Total Protein Albumin Globulin Albumin/Globulin Ratio Urine Color Urine Clarity Urine pH Ur Specific [place] Urine Protein Urine Glucose (UA) Urine Ketones Urine Blood Urine Nitrate Urine Bilirubin Urine Urobilinogen Ur Leukocyte Esterase Ur Squamous Epith Cells Hyaline Casts Urine Opiates Screen Negative Urine Methadone Screen Negative Ur Barbiturates Screen Negative Ur Phencyclidine Scrn Negative Ur Amphetamines Screen Negative U Benzodiazepines Scrn Negative U Oth Cocaine Metabols Negative U Cannabinoids Screen Negative Alcohol, Quantitative Blood Type Cancelled Antibody Screen Cancelled BBK History Checked Cancelled 09/26/18 09/26/18 09/26/18 08:45 08:56 12:56 WBC RBC Hgb Hct MCV MCH MCHC RDW Plt Count MPV Neut % (Auto) Lymph % (Auto) [place] % (Auto) Eos % (Auto) Baso % (Auto) Neut # (Auto) Lymph # (Auto) [place] # (Auto) Eos # (Auto) Baso # (Auto) PT INR APTT Sodium Potassium Chloride Carbon Dioxide Anion Gap BUN Creatinine Est GFR ( Amer) Est GFR (Non-Af Amer) POC Glucose (mg/dL) 65 < 20 L* Random Glucose Calcium Total Bilirubin AST ALT Alkaline Phosphatase Troponin I Total Protein Albumin Globulin Albumin/Globulin Ratio Urine Color Yellow Urine Clarity Clear Urine pH 5.0 Ur Specific [place] 1.015 Urine Protein Negative Urine Glucose (UA) Neg Urine Ketones Negative Urine Blood Negative Urine Nitrate Negative Urine Bilirubin Negative Urine Urobilinogen 0.2-1.0 Ur Leukocyte Esterase Neg Ur Squamous Epith Cells 6 H Hyaline Casts 6-10 H Urine Opiates Screen Urine Methadone Screen Ur Barbiturates Screen Ur Phencyclidine Scrn Ur Amphetamines Screen U Benzodiazepines Scrn U Oth Cocaine Metabols U Cannabinoids Screen Alcohol, Quantitative Blood Type Antibody Screen BBK History Checked 09/26/18 12:59 WBC RBC Hgb Hct MCV MCH MCHC RDW Plt Count MPV Neut % (Auto) Lymph % (Auto) [place] % (Auto) Eos % (Auto) Baso % (Auto) Neut # (Auto) Lymph # (Auto) [place] # (Auto) Eos # (Auto) Baso # (Auto) PT INR APTT Sodium Potassium Chloride Carbon Dioxide Anion Gap BUN Creatinine Est GFR ( Amer) Est GFR (Non-Af Amer) POC Glucose (mg/dL) 26 L* Random Glucose Calcium Total Bilirubin AST ALT Alkaline Phosphatase Troponin I Total Protein Albumin Globulin Albumin/Globulin Ratio Urine Color Urine Clarity Urine pH Ur Specific [place] Urine Protein Urine Glucose (UA) Urine Ketones Urine Blood Urine Nitrate Urine Bilirubin Urine Urobilinogen Ur Leukocyte Esterase Ur Squamous Epith Cells Hyaline Casts Urine Opiates Screen Urine Methadone Screen Ur Barbiturates Screen Ur Phencyclidine Scrn Ur Amphetamines Screen U Benzodiazepines Scrn U Oth Cocaine Metabols U Cannabinoids Screen Alcohol, Quantitative Blood Type Antibody Screen BBK History Checked Assessment & Plan - Assessment and Plan (Free Text) Assessment: 77 y/o female with PMHx of Type II DM, HTN, HLD, and COPD (on home oxygen) was brought into the by ambulance for multiple falls at home, with unclear history of syncope. Patient noted to have right wrist drop upon examination. Patient hypoglycemic. Plan: #1. Fall with unclear history of syncope. -- CT cervical spine: degenerative disease --CXR WNL --CT head no acute intracranial abnormalities --Knee x-ray: possible subchondral fracutre; acute on chronic pathology with right knee jonit effusion. --CT of the right knee ordered --pelvis x-ray: WNL --wrist x-ray: WNL --carotid ultrasound ordered --ECG ordered --Echo from October 2017: mild to moderate mitral regurg, aortic valve stenosis, left atrial enlargement, impaired diastolic relaxation, low normal systolic function --PT/OT on board. #2. Wrist drop --Neuro consult ordered; appreciate recs. #3. Hypoglycemia --all diabetes meds on hold -- will continue to monitor #4. Mild intermittent asthma --Continue home meds #5. Diabetes type II -- accucheck -- [facility] -- resume lispro if elevated sugar #6. Diet. --Consistent carbohydrate with moderate consistency <Nayana Barksdale - Last Filed: 09/26/18 16:49> Results - Vital Signs Recent Vital Signs: Last Vital Signs Temp 99.1 F 09/26/18 16:19 Pulse 93 H 09/26/18 16:19 Resp 17 09/26/18 16:19 BP 116/73 09/26/18 16:19 Pulse Ox 96 09/26/18 16:19 - Labs Result Diagrams: 09/26/18 06:50 09/26/18 06:50 Labs: Laboratory Results - last 24 hr 09/26/18 09/26/18 09/26/18 05:53 06:50 06:50 WBC 7.0 RBC 4.08 Hgb 11.0 L Hct 34.2 MCV 83.8 MCH 26.9 L MCHC 32.1 L RDW 16.3 H Plt Count 263 MPV 9.5 Neut % (Auto) 77.1 H Lymph % (Auto) 16.3 L [place] % (Auto) 6.0 Eos % (Auto) 0.4 Baso % (Auto) 0.2 Neut # (Auto) 5.4 Lymph # (Auto) 1.1 [place] # (Auto) 0.4 Eos # (Auto) 0.0 Baso # (Auto) 0.0 PT INR APTT Sodium 147 Potassium 4.1 Chloride 107 Carbon Dioxide 29 Anion Gap 15 BUN 23 H Creatinine 1.0 Est GFR ( Amer) > 60 Est GFR (Non-Af Amer) 54 POC Glucose (mg/dL) 92 Random Glucose 54 L Calcium 9.9 Total Bilirubin 0.4 AST 24 ALT 16 Alkaline Phosphatase 55 Troponin I < 0.0120 Total Protein 7.0 Albumin 3.4 L Globulin 3.6 Albumin/Globulin Ratio 0.9 L Urine Color Urine Clarity Urine pH Ur Specific [place] Urine Protein Urine Glucose (UA) Urine Ketones Urine Blood Urine Nitrate Urine Bilirubin Urine Urobilinogen Ur Leukocyte Esterase Ur Squamous Epith Cells Hyaline Casts Urine Opiates Screen Urine Methadone Screen Ur Barbiturates Screen Ur Phencyclidine Scrn Ur Amphetamines Screen U Benzodiazepines Scrn U Oth Cocaine Metabols U Cannabinoids Screen Alcohol, Quantitative < 10 Blood Type Antibody Screen BBK History Checked 09/26/18 09/26/18 09/26/18 06:50 06:50 08:45 WBC RBC Hgb Hct MCV MCH MCHC RDW Plt Count MPV Neut % (Auto) Lymph % (Auto) [place] % (Auto) Eos % (Auto) Baso % (Auto) Neut # (Auto) Lymph # (Auto) [place] # (Auto) Eos # (Auto) Baso # (Auto) PT 13.2 H INR 1.2 APTT 33.8 Sodium Potassium Chloride Carbon Dioxide Anion Gap BUN Creatinine Est GFR ( Amer) Est GFR (Non-Af Amer) POC Glucose (mg/dL) Random Glucose Calcium Total Bilirubin AST ALT Alkaline Phosphatase Troponin I Total Protein Albumin Globulin Albumin/Globulin Ratio Urine Color Urine Clarity Urine pH Ur Specific [place] Urine Protein Urine Glucose (UA) Urine Ketones Urine Blood Urine Nitrate Urine Bilirubin Urine Urobilinogen Ur Leukocyte Esterase Ur Squamous Epith Cells Hyaline Casts Urine Opiates Screen Negative Urine Methadone Screen Negative Ur Barbiturates Screen Negative Ur Phencyclidine Scrn Negative Ur Amphetamines Screen Negative U Benzodiazepines Scrn Negative U Oth Cocaine Metabols Negative U Cannabinoids Screen Negative Alcohol, Quantitative Blood Type Cancelled Antibody Screen Cancelled BBK History Checked Cancelled 09/26/18 09/26/18 09/26/18 08:45 08:56 12:56 WBC RBC Hgb Hct MCV MCH MCHC RDW Plt Count MPV Neut % (Auto) Lymph % (Auto) [place] % (Auto) Eos % (Auto) Baso % (Auto) Neut # (Auto) Lymph # (Auto) [place] # (Auto) Eos # (Auto) Baso # (Auto) PT INR APTT Sodium Potassium Chloride Carbon Dioxide Anion Gap BUN Creatinine Est GFR ( Amer) Est GFR (Non-Af Amer) POC Glucose (mg/dL) 65 < 20 L* Random Glucose Calcium Total Bilirubin AST ALT Alkaline Phosphatase Troponin I Total Protein Albumin Globulin Albumin/Globulin Ratio Urine Color Yellow Urine Clarity Clear Urine pH 5.0 Ur Specific [place] 1.015 Urine Protein Negative Urine Glucose (UA) Neg Urine Ketones Negative Urine Blood Negative Urine Nitrate Negative Urine Bilirubin Negative Urine Urobilinogen 0.2-1.0 Ur Leukocyte Esterase Neg Ur Squamous Epith Cells 6 H Hyaline Casts 6-10 H Urine Opiates Screen Urine Methadone Screen Ur Barbiturates Screen Ur Phencyclidine Scrn Ur Amphetamines Screen U Benzodiazepines Scrn U Oth Cocaine Metabols U Cannabinoids Screen Alcohol, Quantitative Blood Type Antibody Screen BBK History Checked 09/26/18 09/26/18 09/26/18 12:59 13:29 16:10 WBC RBC Hgb Hct MCV MCH MCHC RDW Plt Count MPV Neut % (Auto) Lymph % (Auto) [place] % (Auto) Eos % (Auto) Baso % (Auto) Neut # (Auto) Lymph # (Auto) [place] # (Auto) Eos # (Auto) Baso # (Auto) PT INR APTT Sodium Potassium Chloride Carbon Dioxide Anion Gap BUN Creatinine Est GFR ( Amer) Est GFR (Non-Af Amer) POC Glucose (mg/dL) 26 L* 178 H 105 Random Glucose Calcium Total Bilirubin AST ALT Alkaline Phosphatase Troponin I Total Protein Albumin Globulin Albumin/Globulin Ratio Urine Color Urine Clarity Urine pH Ur Specific [place] Urine Protein Urine Glucose (UA) Urine Ketones Urine Blood Urine Nitrate Urine Bilirubin Urine Urobilinogen Ur Leukocyte Esterase Ur Squamous Epith Cells Hyaline Casts Urine Opiates Screen Urine Methadone Screen Ur Barbiturates Screen Ur Phencyclidine Scrn Ur Amphetamines Screen U Benzodiazepines Scrn U Oth Cocaine Metabols U Cannabinoids Screen Alcohol, Quantitative Blood Type Antibody Screen BBK History Checked Attending/Attestation - Attestation I have personally seen and examined this patient.: Yes I have fully participated in the care of the patient.: Yes I have reviewed all pertinent clinical information: Yes Notes (Text): History obtained with the help of a cognos tm1 developer - Nadeem. Pt is a poor historian 1. Fall unclear if Syncope ( pt denies LOS) or due to Hypoglycemia - imaging no fracture except for a questionable R knee subchondral fx - Echo done less than a year ago - normal - Carotid Sono - CT of head and C spine : neg bleed /fracture 2. Wrist Drop , right - unclear if before fall or if a result of fall - Neuro eval - PT/OT consult 3. Hypoglycemia hx of DM Type II - d/c all oral hypoglycemics - Hypoglycemia protocol - accucheck ACHS 4. Question of a Right Subchondral Fracture - CT of right knee 5. Previous CT of chest shows ? Mass (Aug) - rpt CT of chest to ff up 6. Mild Intermittent Asthma - cont home meds
[2018-09-26] MEDS: Dextrose 5%/0.45% NS 1,000 ML IV SCH (17:35)
--- NOTE | 2018-09-26 17:35 | CT ---
Date of service: 09/26/2018 PROCEDURE: CT right knee. HISTORY: right knee pain r/o fracture COMPARISON: September 26, 2018 bilateral knee radiographs. TECHNIQUE: 2.5 mm axial acquisition and display. Coronal and sagittal reconstructions. Dose report (mGy-cm): 370.49 FINDINGS: Severe degenerative, proliferative changes. Particular attention directed to the medial femoral condylar region. No acute fracture identified. Tricompartmental narrowing is apparent. Small suprapatellar joint effusion identified. IMPRESSION: No acute findings related to/ accounting for the clinical presentation. Severe multi compartment degenerative change. Small suprapatellar joint effusion.
--- NOTE | 2018-09-26 17:40 | CARD ---
APPROVED REPORT Date of service: 09/26/2018 EKG Measurement Heart [id number] <Conclusion> Normal sinus rhythm Inferior infarct, age undetermined Cannot rule out Anterior infarct, age undetermined Abnormal ECG
--- NOTE | 2018-09-26 19:29 | CP.PCM.CON ---
History of Present Illness - History of Present Illness History of Present Illness: Neurology consult dictated. Patient who had a syncopal spell and several falls today, and resulting wrist drop. Plan; 1. MRI Brain 2. If above normal, needs EMG DR. Valenzuela Past Patient History - Tetanus Immunizations Tetanus Immunization: Unknown - Past Medical History & Family History Past Medical History?: Yes - Past Social History Smoking Status: Never Smoked - CARDIAC Hx Congestive Heart Failure: Yes Hx Hypercholesterolemia: Yes Hx Hypertension: Yes - PULMONARY Hx Asthma: Yes Hx Chronic Obstructive Pulmonary Disease (COPD): Yes - NEUROLOGICAL Hx Neurological Disorder: No - HEENT Hx HEENT Problems: Yes - RENAL Hx Chronic Kidney Disease: No - ENDOCRINE/METABOLIC Hx Endocrine Disorders: Yes Hx Diabetes Mellitus Type 2: Yes - HEMATOLOGICAL/ONCOLOGICAL Hx Anemia: Yes Hx Human Immunodeficiency Virus (HIV): No - INTEGUMENTARY Hx Dermatological Problems: No - MUSCULOSKELETAL/RHEUMATOLOGICAL Hx Musculoskeletal Disorders: No Hx Falls: Yes (Unknown.) - GASTROINTESTINAL Hx Gall Bladder Disease: Yes - GENITOURINARY/GYNECOLOGICAL Hx Genitourinary Disorders: No - PSYCHIATRIC Hx Depression: Yes Hx Substance Use: No (Unknown) - SURGICAL HISTORY Hx Cholecystectomy: Yes - ANESTHESIA Hx Anesthesia: Yes Hx Anesthesia Reactions: No Hx Malignant Hyperthermia: No Meds Allergies/Adverse Reactions: Allergies Allergy/AdvReac Type Severity Reaction Status Date / Time EGG Allergy REDNESS Verified 09/26/18 05:46 - Medications Medications: Current Medications Albuterol (Ventolin Hfa 90 Mcg/Actuation (8 G)) 2 puff IH Q4 PRN PRN Reason: Shortness of Breath Albuterol Sulfate (Albuterol 0.083% Inhal Ale (2.5 Mg/3 Ml) Ud) 2.5 mg IH Q6 PRN PRN Reason: Shortness of Breath Cyclobenzaprine HCl (Flexeril) 10 mg PO HS [facility] Dextrose (Dextrose 50% Inj) 0 ml IV STAT PRN; Protocol PRN Reason: Hypoglycemia Protocol Last Admin: 09/26/18 13:06 Dose: 50 ml Dextrose (Glutose 15) 0 gm PO ONCE PRN; Protocol PRN Reason: Hypoglycemia Protocol Enoxaparin Sodium (Lovenox) 40 mg SC DAILY [facility]; Protocol Famotidine (Pepcid) 20 mg PO BID [facility] Last Admin: 09/26/18 17:37 Dose: 20 mg Folic Acid (Folic Acid) 1 mg PO DAILY [facility] Furosemide (Lasix) 20 mg PO DAILY [facility] Glucagon (Glucagen Diagnostic Kit) 0 mg IM STAT PRN; Protocol PRN Reason: Hypoglycemia Protocol Dextrose/Sodium Chloride (Dextrose 5%/0.45% Ns 1000 Ml) 1,000 mls @ 60 mls/hr IV .[id number] [facility] Stop: 09/27/18 16:51 Last Admin: 09/26/18 17:35 Dose: 60 mls/hr Lisinopril (Zestril) 10 mg PO DAILY [facility] Montelukast Sodium (Singulair) 10 mg PO HS [facility] Fluticasone/Salmeterol (Advair Diskus 250/50) 1 puff IH Q12 [facility] Tramadol HCl (Ultram) 50 mg PO Q6 PRN PRN Reason: Pain, severe (8-10) Results - Vital Signs Recent Vital Signs: Last Vital Signs Temp 99.1 F 09/26/18 17:00 Pulse 93 H 09/26/18 17:00 Resp 17 09/26/18 17:00 BP 116/73 09/26/18 17:00 Pulse Ox 96 09/26/18 17:00 - Labs Result Diagrams: 09/26/18 06:50 09/26/18 06:50 Labs: Laboratory Results - last 24 hr 09/26/18 09/26/18 09/26/18 05:53 06:50 06:50 WBC 7.0 RBC 4.08 Hgb 11.0 L Hct 34.2 MCV 83.8 MCH 26.9 L MCHC 32.1 L RDW 16.3 H Plt Count 263 MPV 9.5 Neut % (Auto) 77.1 H Lymph % (Auto) 16.3 L [place] % (Auto) 6.0 Eos % (Auto) 0.4 Baso % (Auto) 0.2 Neut # (Auto) 5.4 Lymph # (Auto) 1.1 [place] # (Auto) 0.4 Eos # (Auto) 0.0 Baso # (Auto) 0.0 PT INR APTT Sodium 147 Potassium 4.1 Chloride 107 Carbon Dioxide 29 Anion Gap 15 BUN 23 H Creatinine 1.0 Est GFR ( Amer) > 60 Est GFR (Non-Af Amer) 54 POC Glucose (mg/dL) 92 Random Glucose 54 L Calcium 9.9 Total Bilirubin 0.4 AST 24 ALT 16 Alkaline Phosphatase 55 Troponin I < 0.0120 Total Protein 7.0 Albumin 3.4 L Globulin 3.6 Albumin/Globulin Ratio 0.9 L Urine Color Urine Clarity Urine pH Ur Specific [place] Urine Protein Urine Glucose (UA) Urine Ketones Urine Blood Urine Nitrate Urine Bilirubin Urine Urobilinogen Ur Leukocyte Esterase Ur Squamous Epith Cells Hyaline Casts Urine Opiates Screen Urine Methadone Screen Ur Barbiturates Screen Ur Phencyclidine Scrn Ur Amphetamines Screen U Benzodiazepines Scrn U Oth Cocaine Metabols U Cannabinoids Screen Alcohol, Quantitative < 10 Blood Type Antibody Screen BBK History Checked 09/26/18 09/26/18 09/26/18 06:50 06:50 08:45 WBC RBC Hgb Hct MCV MCH MCHC RDW Plt Count MPV Neut % (Auto) Lymph % (Auto) [place] % (Auto) Eos % (Auto) Baso % (Auto) Neut # (Auto) Lymph # (Auto) [place] # (Auto) Eos # (Auto) Baso # (Auto) PT 13.2 H INR 1.2 APTT 33.8 Sodium Potassium Chloride Carbon Dioxide Anion Gap BUN Creatinine Est GFR ( Amer) Est GFR (Non-Af Amer) POC Glucose (mg/dL) Random Glucose Calcium Total Bilirubin AST ALT Alkaline Phosphatase Troponin I Total Protein Albumin Globulin Albumin/Globulin Ratio Urine Color Urine Clarity Urine pH Ur Specific [place] Urine Protein Urine Glucose (UA) Urine Ketones Urine Blood Urine Nitrate Urine Bilirubin Urine Urobilinogen Ur Leukocyte Esterase Ur Squamous Epith Cells Hyaline Casts Urine Opiates Screen Negative Urine Methadone Screen Negative Ur Barbiturates Screen Negative Ur Phencyclidine Scrn Negative Ur Amphetamines Screen Negative U Benzodiazepines Scrn Negative U Oth Cocaine Metabols Negative U Cannabinoids Screen Negative Alcohol, Quantitative Blood Type Cancelled Antibody Screen Cancelled BBK History Checked Cancelled 09/26/18 09/26/18 09/26/18 08:45 08:56 12:56 WBC RBC Hgb Hct MCV MCH MCHC RDW Plt Count MPV Neut % (Auto) Lymph % (Auto) [place] % (Auto) Eos % (Auto) Baso % (Auto) Neut # (Auto) Lymph # (Auto) [place] # (Auto) Eos # (Auto) Baso # (Auto) PT INR APTT Sodium Potassium Chloride Carbon Dioxide Anion Gap BUN Creatinine Est GFR ( Amer) Est GFR (Non-Af Amer) POC Glucose (mg/dL) 65 < 20 L* Random Glucose Calcium Total Bilirubin AST ALT Alkaline Phosphatase Troponin I Total Protein Albumin Globulin Albumin/Globulin Ratio Urine Color Yellow Urine Clarity Clear Urine pH 5.0 Ur Specific [place] 1.015 Urine Protein Negative Urine Glucose (UA) Neg Urine Ketones Negative Urine Blood Negative Urine Nitrate Negative Urine Bilirubin Negative Urine Urobilinogen 0.2-1.0 Ur Leukocyte Esterase Neg Ur Squamous Epith Cells 6 H Hyaline Casts 6-10 H Urine Opiates Screen Urine Methadone Screen Ur Barbiturates Screen Ur Phencyclidine Scrn Ur Amphetamines Screen U Benzodiazepines Scrn U Oth Cocaine Metabols U Cannabinoids Screen Alcohol, Quantitative Blood Type Antibody Screen BBK History Checked 09/26/18 09/26/18 09/26/18 12:59 13:29 16:10 WBC RBC Hgb Hct MCV MCH MCHC RDW Plt Count MPV Neut % (Auto) Lymph % (Auto) [place] % (Auto) Eos % (Auto) Baso % (Auto) Neut # (Auto) Lymph # (Auto) [place] # (Auto) Eos # (Auto) Baso # (Auto) PT INR APTT Sodium Potassium Chloride Carbon Dioxide Anion Gap BUN Creatinine Est GFR ( Amer) Est GFR (Non-Af Amer) POC Glucose (mg/dL) 26 L* 178 H 105 Random Glucose Calcium Total Bilirubin AST ALT Alkaline Phosphatase Troponin I Total Protein Albumin Globulin Albumin/Globulin Ratio Urine Color Urine Clarity Urine pH Ur Specific [place] Urine Protein Urine Glucose (UA) Urine Ketones Urine Blood Urine Nitrate Urine Bilirubin Urine Urobilinogen Ur Leukocyte Esterase Ur Squamous Epith Cells Hyaline Casts Urine Opiates Screen Urine Methadone Screen Ur Barbiturates Screen Ur Phencyclidine Scrn Ur Amphetamines Screen U Benzodiazepines Scrn U Oth Cocaine Metabols U Cannabinoids Screen Alcohol, Quantitative Blood Type Antibody Screen BBK History Checked
[2018-09-26 20:33] VITALS: BMI 30.8
[2018-09-26] MEDS: Fluticasone-Salmeterol 250-50mcg Diskus IH SCH (22:39)
[2018-09-26] MEDS: Enoxaparin 40 mg Syringe SC SCH (22:43)
[2018-09-27 06:19] LABS: ALT/SGPT 21 U/L (9-52); AST/SGOT 17 U/L (14-36); BLOOD UREA NITROGEN 15 mg/dl (7-17); CALCIUM 8.9 mg/dL (8.4-10.2); GFR NON-AFRICAN AMERICAN > 60
[2018-09-27 06:27] LABS: HEMOGLOBIN 9.5 g/dL (12.0-16.0); MEAN CELL VOLUME 83.9 fl (81.0-99.0); MEAN CORPUSCULAR HEMOGLOBIN 27.1 pg (27.0-31.0); MEAN CORPUSCULAR HGB CONC 32.3 g/dL (33.0-37.0); RBC 3.49 Mil/uL (3.80-5.20); RED CELL DISTRIBUTION WIDTH 16.1 % (11.5-14.5); WHITE BLOOD COUNT 4.6 K/uL (4.8-10.8)
[2018-09-27 08:09] VITALS: RESP 18
--- NOTE | 2018-09-27 09:27 | CON ---
DATE: 09/26/2018 NEUROLOGY CONSULTATION Neurology consult called by Dr. Nayana Barksdale. HISTORY OF PRESENT ILLNESS: The patient is a 76-year-old woman who has had several recent falls along with syncopal spell. She reported that she fell three times in her house and was not sure how she fell. There is no reported dizziness, chest pain, or any other palpitations. There is no post fall tonic-clonic activity, weakness, dysphagia, dysarthria, visual field cut. She does not think she hit her head. On admission to the ER, she had shortness of breath and also the patient states that she has had weakness in her right wrist for six days and she is not sure why she is unsure if she fell. There is no history of alcohol or drug abuse. PAST MEDICAL HISTORY: Hypertension, COPD, CHF, DM, and hypercholesterolemia. PAST SURGICAL HISTORY: Cholecystectomy. FAMILY HISTORY: No tobacco. No alcohol. No other issues. Lives alone. ALLERGIES: NO KNOWN DRUG ALLERGIES. MEDICATIONS AT HOME: Zestril, Singulair, Lasix, Ultram, Januvia, Amaryl, Actos, Flexeril, Pepcid, Protonix, and Glucophage. LABORATORY DATA: Within normal limits except for glucose, which is 178. Of note, the patient had a blood glucose of 30 when she came into the hospital. Urine normal. Toxicology negative. Alcohol was negative. CAT scan of the head was done as well as of her knee, wrist, lower extremity CT which were all normal. CAT scan of the head was normal. IMPRESSION AND PLAN: A 77-year-old woman who has severe hypoglycemia, which may be etiology of her falls as well and also has uncontrolled blood glucose, as well as a right wrist strap ulnar neuropathy noted, which is chronic. I am concerned that she may have had a stroke in the last seven days. Therefore, I have ordered MRI of the brain. If MRI is normal, EMG needs to be done. She also needs physical therapy. In addition, she is on multiple sedating medications, which should be reevaluated. Thank you for this interesting consultation. Lavonne Valenzuela MD
[2018-09-27] MEDS: Enoxaparin 40 mg Syringe SC SCH (09:52)
[2018-09-27] MEDS: Fluticasone-Salmeterol 250-50mcg Diskus IH SCH (09:53)
[2018-09-27] MEDS: Dextrose 5%/0.45% NS 1,000 ML IV SCH (09:56)
--- NOTE | 2018-09-27 10:52 | CP.PCM.DIS ---
Provider - Provider Date of Admission: 09/26/18 08:43 Attending physician: Nayana Barksdale MD Consults: 09/26/18 10:03 Neurology Consult Routine Comment: Consulting Provider: Lavonne Valenzuela Consulting Physician: Lavonne Valenzuela Reason for Consult: wrist drop, ? syncope, fall Time Spent in preparation of Discharge (in minutes): 30 Diagnosis - Discharge Diagnosis (1) Fall Status: Acute Hospital Course - Lab Results Lab Results: Most Recent Lab Values WBC 4.6 K/uL (4.8-10.8) L 09/27/18 04:40 RBC 3.49 Mil/uL (3.80-5.20) L 09/27/18 04:40 Hgb 9.5 g/dL (12.0-16.0) L 09/27/18 04:40 Hct 29.3 % (34.0-47.0) L 09/27/18 04:40 MCV 83.9 fl (81.0-99.0) 09/27/18 04:40 MCH 27.1 pg (27.0-31.0) 09/27/18 04:40 MCHC 32.3 g/dL (33.0-37.0) L 09/27/18 04:40 RDW 16.1 % (11.5-14.5) H 09/27/18 04:40 Plt Count 202 K/uL (130-400) 09/27/18 04:40 MPV 9.5 fl (7.2-11.7) 09/26/18 06:50 Neut % (Auto) 77.1 % (50.0-75.0) H 09/26/18 06:50 Lymph % (Auto) 16.3 % (20.0-40.0) L 09/26/18 06:50 Ross % (Auto) 6.0 % (0.0-10.0) 09/26/18 06:50 Eos % (Auto) 0.4 % (0.0-4.0) 09/26/18 06:50 Baso % (Auto) 0.2 % (0.0-2.0) 09/26/18 06:50 Neut # (Auto) 5.4 K/uL (1.8-7.0) 09/26/18 06:50 Lymph # (Auto) 1.1 K/uL (1.0-4.3) 09/26/18 06:50 Ross # (Auto) 0.4 K/uL (0.0-0.8) 09/26/18 06:50 Eos # (Auto) 0.0 K/uL (0.0-0.7) 09/26/18 06:50 Baso # (Auto) 0.0 K/uL (0.0-0.2) 09/26/18 06:50 PT 13.2 Seconds (9.8-13.1) H 09/26/18 06:50 INR 1.2 09/26/18 06:50 APTT 33.8 Seconds (25.6-37.1) 09/26/18 06:50 Sodium 137 mmol/l (132-148) 09/27/18 04:40 Potassium 4.0 MMOL/L (3.6-5.0) 09/27/18 04:40 Chloride 105 mmol/L (98-107) 09/27/18 04:40 Carbon Dioxide 27 mmol/L (22-30) 09/27/18 04:40 Anion Gap 9 (10-20) L 09/27/18 04:40 BUN 15 mg/dl (7-17) 09/27/18 04:40 Creatinine 0.8 mg/dl (0.7-1.2) 09/27/18 04:40 Est GFR ( Amer) > 60 09/27/18 04:40 Est GFR (Non-Af Amer) > 60 09/27/18 04:40 POC Glucose (mg/dL) 214 mg/dL (65-110) H 09/27/18 04:59 Random Glucose 186 mg/dL (65-105) H 09/27/18 04:40 Calcium 8.9 mg/dL (8.4-10.2) 09/27/18 04:40 Total Bilirubin 0.4 mg/dl (0.2-1.3) 09/27/18 04:40 AST 17 U/L (14-36) 09/27/18 04:40 ALT 21 U/L (9-52) 09/27/18 04:40 Alkaline Phosphatase 54 U/L (38-126) 09/27/18 04:40 Troponin I < 0.0120 ng/mL (0.00-0.120) 09/26/18 06:50 Total Protein 5.9 G/DL (6.3-8.2) L 09/27/18 04:40 Albumin 3.0 g/dL (3.5-5.0) L 09/27/18 04:40 Globulin 2.9 gm/dL (2.2-3.9) 09/27/18 04:40 Albumin/Globulin Ratio 1.0 (1.0-2.1) 09/27/18 04:40 Urine Color Yellow (YELLOW) 09/26/18 08:45 Urine Clarity Clear (Clear) 09/26/18 08:45 Urine pH 5.0 (5.0-8.0) 09/26/18 08:45 Ur Specific [place] 1.015 (1.003-1.030) 09/26/18 08:45 Urine Protein Negative mg/dL (NEGATIVE) 09/26/18 08:45 Urine Glucose (UA) Neg mg/dL (NEGATIVE) 09/26/18 08:45 Urine Ketones Negative mg/dL (NEGATIVE) 09/26/18 08:45 Urine Blood Negative (NEGATIVE) 09/26/18 08:45 Urine Nitrate Negative (NEGATIVE) 09/26/18 08:45 Urine Bilirubin Negative (NEGATIVE) 09/26/18 08:45 Urine Urobilinogen 0.2-1.0 mg/dL (0.2-1.0) 09/26/18 08:45 Ur Leukocyte Esterase Neg Uziel/uL (Negative) 09/26/18 08:45 Ur Squamous Epith Cells 6 /hpf (0-5) H 09/26/18 08:45 Hyaline Casts 6-10 /hpf (0-2) H 09/26/18 08:45 Urine Opiates Screen Negative (NEGATIVE) 09/26/18 08:45 Urine Methadone Screen Negative (NEGATIVE) 09/26/18 08:45 Ur Barbiturates Screen Negative (NEGATIVE) 09/26/18 08:45 Ur Phencyclidine Scrn Negative (NEGATIVE) 09/26/18 08:45 Ur Amphetamines Screen Negative (NEGATIVE) 09/26/18 08:45 U Benzodiazepines Scrn Negative (NEGATIVE) 09/26/18 08:45 U Oth Cocaine Metabols Negative (NEGATIVE) 09/26/18 08:45 U Cannabinoids Screen Negative (NEGATIVE) 09/26/18 08:45 Alcohol, Quantitative < 10 mg/dl (0-10) 09/26/18 06:50 Blood Type Cancelled 09/26/18 06:50 Antibody Screen Cancelled 09/26/18 06:50 BBK History Checked Cancelled 09/26/18 06:50 - Hospital Course Hospital Course: 77 y/o female with PMHx of Type II DM, HTN, HLD, and COPD (on home oxygen) was brought into the by ambulance for multiple falls at home, with unclear history of syncope. Patient noted to have right wrist drop upon examination. Patient hypoglycemic.Cxr, pelvis, wrist, knee x-ray WNL. CT cervical spine WNL. MRI brain WNL. Carotid artery US WNL. Patient to follow up with Dr. Valenzuela and Dr. Duran - Date & Time of H&P Date of H&P: 09/27/18 Time of H&P: 11:37 Discharge Exam - Head Exam Head Exam: ATRAUMATIC, NORMOCEPHALIC - Eye Exam Eye Exam: Normal appearance Pupil Exam: NORMAL ACCOMODATION - ENT Exam ENT Exam: Mucous Membranes Moist - Respiratory Exam Respiratory Exam: NORMAL BREATHING PATTERN - Cardiovascular Exam Cardiovascular Exam: REGULAR RHYTHM, +S1, +S2 - Neurological Exam Neurological exam: Alert, Oriented x3 - Psychiatric Exam Psychiatric exam: Normal Affect Discharge Plan - Follow Up Plan Condition: STABLE Disposition: HOME/ ROUTINE Instructions: Preventing Falls in the Older Adult, Low Blood Sugar, Adult (DC) Referrals: Kirby Duran MD [Staff Provider] -
--- NOTE | 2018-09-27 11:47 | MRI ---
Date of service: 09/27/2018 PROCEDURE: MRI BRAIN WITHOUT CONTRAST HISTORY: Status post fall due to syncope COMPARISON: Comparison made with prior CT scan of brain dated 09/26/2018. TECHNIQUE: Multiplanar, multisequence MR images of the brain were obtained without intravenous contrast enhancement. FINDINGS: HEMORRHAGE: No acute parenchymal, subarachnoid nor extra-axial hemorrhage. No evidence of hemosiderin deposition is identified on gradient echo weighted sequence. DWI: No evidence of an acute or early subacute infarction. BRAIN PARENCHYMA: Minor diffuse/confluent chronic periventricular white matter ischemic changes with multiple more discrete chronic appearing lacunar type infarcts scattered about deep and subcortical white matter both cerebral hemispheres including bilateral basal nuclei. None of these changes exhibit restricted diffusion. Mild to moderate generalized volume loss. No obvious parenchymal nor extra-axial mass or collection seen on this noncontrast study. VENTRICLES: No obstructive hydrocephalus. CRANIUM: Calvarium intact however note again made of a small elliptical shaped soft tissue mass density left posterior superior parietal scalp which contain multiple tiny speckled calcifications that are best appreciated on prior CT scan. ORBITS: Changes of left-sided cataract surgery again noted. PARANASAL SINUSES/MASTOIDS: Clear VASCULAR SYSTEM: Visualized major vascular flow voids at skull base patent. OTHER FINDINGS: None. IMPRESSION: No acute intracranial hemorrhage or infarct. Chronic white matter and basal nuclei ischemic changes.. [id number] generalized volume loss.
[2018-09-27 11:55] VITALS: BP 132/81; PULSE 123; TEMP 97.9; O2SAT 98
--- NOTE | 2018-09-27 12:15 | US ---
Date of service: 09/27/2018 PROCEDURE: Duplex ultrasound of the carotid and vertebral arteries. HISTORY: Fall , syncope COMPARISON: None available. TECHNIQUE: Grayscale and duplex Doppler evaluation of the cervical carotid and vertebral arteries were performed. The common carotid, carotid bifurcations and cervical ICA and proximal ECA were evaluated. The vertebral arteries were evaluated for gross patency and direction. FINDINGS: RIGHT CAROTID ARTERIES: Common Carotid Artery: Maximal flow velocity of 43.5 cm/s. Carotid Bifurcation: Normal. Internal Carotid Artery: Tortuous right ICA. Heterogeneous plaque formation.Maximal flow velocity of 76.2 cm/s. External Carotid Artery (proximal branches): Maximal flow velocity of 12.1 cm/s. ICA/CCA Ratio: 1.8 LEFT CAROTID ARTERIES: Common Carotid Artery: Maximal flow velocity of 55.9 cm/s. Carotid Bifurcation: Intimal thickening is present Internal Carotid Artery: Tortuous left ICA. Heterogeneous plaque formation. Maximal flow velocity of 65.0 cm/s. External Carotid Artery (proximal branches): Maximal flow velocity of 64.5 cm/s. ICA/CCA Ratio: 1.2 VERTEBRAL ARTERIES: Right Vertebral Artery: Patent. Antegrade flow. Left Vertebral Artery: Patent. Antegrade flow. OTHER FINDINGS: Atherosclerotic calcification present. IMPRESSION: RIGHT carotid system: Assessment of plaque: Peak systolic ICA velocity: cm/sec End-diastolic velocity: cm/sec ICA/CCA ratio: Vertebral artery flow: Antegrade LEFT carotid system: Assessment of plaque: Peak systolic ICA velocity: cm/sec End-diastolic velocity: cm/sec ICA/CCA ratio: Vertebral artery flow: Antegrade Impressions
== END 2018-09-27 12:22 | disposition home or self-care (01) ==
LOC: H.ER 05:34 → H.ERHOLD 08:43 → H.TEL 15:18
PROVIDERS: ADMIT Internal Medicine; ATTEND Internal Medicine
DX: E11.649 Type 2 diabetes mellitus with hypoglycemia without coma (principal); E78.00 Pure hypercholesterolemia, unspecified; E78.5 Hyperlipidemia, unspecified; F32.9 Major depressive disorder, single episode, unspecified; G56.21 Lesion of ulnar nerve, right upper limb; I11.0 Hypertensive heart disease with heart failure; I50.9 Heart failure, unspecified; J44.9 Chronic obstructive pulmonary disease, unspecified; M21.331 Wrist drop, right wrist; M46.90 Unspecified inflammatory spondylopathy, site unspecified; M47.9 Spondylosis, unspecified; M54.10 Radiculopathy, site unspecified; R29.6 Repeated falls; W19.XXXA Unspecified fall, initial encounter; Y92.009 Unspecified place in unspecified non-institutional (private) residence as the place of occurrence of the external cause; Z99.81 Dependence on supplemental oxygen; E66.9 Obesity, unspecified; Z68.30 Body mass index [BMI] 30.0-30.9, adult; K82.9 Disease of gallbladder, unspecified; Z79.84 Long term (current) use of oral hypoglycemic drugs; Z79.899 Other long term (current) drug therapy; R55 Syncope and collapse; D63.8 Anemia in other chronic diseases classified elsewhere
CPT/HCPCS: 36415; 70450; 70551; 71045; 72125; 72170; 73110; 73562; 73700; 80053; 81003; 82948; 83036; 84484; 85025; 85027; 85610; 85730; 93005; 93880; 96361; 96372; 96374; 97162; 97165; 99285; G0378; G0480; G8978; G8979; G8987; G8988; J1650; J7042

== ENCOUNTER 2018-10-04 08:43 | Observation (INO) | payer OTHER ==
[2018-10-04 08:43] VITALS: BMI 30.8
[2018-10-04 09:38] LABS: BASO % 0.1 % (0.0-2.0); EOS % 0.4 % (0.0-4.0); HEMOGLOBIN 12.2 g/dL (12.0-16.0); LYMPH # 1.1 K/uL (1.0-4.3); LYMPH % 10.5 % (20.0-40.0); MEAN CORPUSCULAR HEMOGLOBIN 28.5 pg (27.0-31.0); MEAN CORPUSCULAR HGB CONC 32.7 g/dL (33.0-37.0); MEAN PLATELET VOLUME 9.2 fl (7.2-11.7); MONO # 0.6 K/uL (0.0-0.8); MONO % 5.2 % (0.0-10.0); NEUT # 8.9 K/uL (1.8-7.0); NEUT % 83.8 % (50.0-75.0); NRBC % 0.1 % (0.0-0.0); RBC 4.29 Mil/uL (3.80-5.20); RED CELL DISTRIBUTION WIDTH 16.5 % (11.5-14.5)
[2018-10-04 09:46] LABS: WHITE BLOOD COUNT 10.6 K/uL (4.8-10.8)
[2018-10-04 10:07] LABS: ALB/GLOB RATIO 1.1 (1.0-2.1); ALBUMIN 3.8 g/dL (3.5-5.0); ALT/SGPT 10 U/L (9-52); AST/SGOT 24 U/L (14-36); BLOOD UREA NITROGEN 17 mg/dl (7-17); CALCIUM 9.3 mg/dL (8.4-10.2); GFR NON-AFRICAN AMERICAN > 60
--- NOTE | 2018-10-04 10:30 | ED PDOC ---
HPI: Altered Mental Status Time Seen by Provider: 10/04/18 08:56 Chief Complaint (Nursing): Altered Mental Status Chief Complaint (Provider): Altered Mental Status History Per: EMS History/Exam Limitations: Clinical Condition Onset Of Symptoms: Cannot Confirm Onset Current Symptoms Are (Timing): Still Present Usual Baseline: Unknown Additional Complaint(s): 77 year old female with multiple comorbidities presents to the ED via EMS after she was reportedly found unresponsive in her home. It is unclear who found her. According to EMS, her blood sugar was low (unsure the value). EMS gave D-50 with response, raising blood sugar to 170. However, her blood sugar is already dropping. Patient is shaking and not answering questions. Unclear history at this time as patient is not responding. She is alert and shivering with a rectal temperature of 96. Patient recently was admitted to the hospital for hypoglycemia. PMD: Dr. Kirby Duran Past Medical History Reviewed: Historical Data, Nursing Documentation, Vital Signs Vital Signs: Last Vital Signs Temp 96.2 F L 10/04/18 09:18 Pulse 81 10/04/18 09:48 Resp 20 10/04/18 09:48 BP 151/74 H 10/04/18 09:48 Pulse Ox 99 10/04/18 09:48 - Medical History PMH: Anemia, Asthma, CHF, COPD, Depression, Diabetes, Gall Bladder Disease, HTN, Hypercholesterolemia Denies: HIV, Chronic Kidney Disease - Surgical History Surgical History: Cholecystectomy - Family History Family History: States: Unknown Family Hx - Home Medications Home Medications: Ambulatory Orders Medication Instructions Recorded Lisinopril [Zestril] 10 mg PO DAILY 10/02/16 Montelukast [Singulair] 10 mg PO HS 10/02/16 Furosemide [Lasix] 20 mg PO DAILY #30 tab 10/04/16 Fluticasone/Salmeterol [Advair 1 puff IH Q12 04/08/18 250-50 Diskus] Folic Acid 1 mg PO DAILY 04/08/18 traMADol [Ultram] 50 mg PO Q4 PRN 04/08/18 Albuterol Sulfate [Proair Hfa] 2 puff IH Q4 PRN 08/09/18 Pantoprazole Sodium [Protonix] 40 mg PO DAILY 08/09/18 metFORMIN [glucOPHAGE] 850 mg PO BID 08/09/18 Megestrol Acetate [Megace Es] 5 ml PO DAILY 09/26/18 Promethazine DM [Phenergan DM 5 ml PO Q6 PRN 09/26/18 Syrup] Sertraline [Zoloft] 100 mg PO DAILY 09/26/18 - Allergies Allergies/Adverse Reactions: Allergies Allergy/AdvReac Type Severity Reaction Status Date / Time EGG Allergy REDNESS Verified 10/04/18 08:50 Review of Systems Review Of Systems: ROS cannot be obtained secondary to pt's inabilty to answer questions. Physical Exam - Reviewed Nursing Documentation Reviewed: Yes Vital Signs Reviewed: Yes - Physical Exam Appears: Positive for: Non-toxic, No Acute Distress Head Exam: Positive for: ATRAUMATIC, NORMAL INSPECTION, NORMOCEPHALIC Skin: Positive for: Normal Color, Warm, Dry Eye Exam: Positive for: EOMI, Normal appearance, PERRL Neck: Positive for: Normal, Painless ROM, Supple Cardiovascular/Chest: Positive for: Regular Rate, Rhythm. Negative for: Murmur Respiratory: Positive for: Crackles (bilateral lung bonilla). Negative for: Respiratory Distress Gastrointestinal/Abdominal: Positive for: Normal Exam, Soft. Negative for: Tenderness Back: Positive for: Normal Inspection. Negative for: L CVA Tenderness, R CVA Tenderness Extremity: Positive for: Normal ROM (x 4). Negative for: Deformity, Swelling Neurological/Psych: Positive for: Awake, Alert, Normal Tone - Laboratory Results Result Diagrams: 10/04/18 09:15 10/04/18 09:15 Lab Results: Total Bilirubin 0.3 mg/dl (0.2-1.3) 10/04/18 09:15 AST 24 U/L (14-36) 10/04/18 09:15 ALT 10 U/L (9-52) 10/04/18 09:15 Alkaline Phosphatase 58 U/L (38-126) 10/04/18 09:15 Total Protein 7.1 G/DL (6.3-8.2) 10/04/18 09:15 Albumin 3.8 g/dL (3.5-5.0) 10/04/18 09:15 Globulin 3.3 gm/dL (2.2-3.9) 10/04/18 09:15 Albumin/Globulin Ratio 1.1 (1.0-2.1) 10/04/18 09:15 - ECG O2 Sat by Pulse Oximetry: 99 (RA) Pulse Ox Interpretation: Normal Medical Decision Making Medical Decision Makin:12 MDM: hypoglycemia Septic workup D-5, CXR, labs, reassess patient Most likely to be admitted. 10:42 Started antibiotics in the ED for pneumonia. Patient will be admitted to Dr. Yoon for further treatment. Scribe Attestation: Documented by Marjorie Colmenares, acting as a scribe Robson Gold MD Provider Scribe Attestation: All medical record entries made by the Scribe were at my direction and p ersonally dictated by me. I have reviewed the chart and agree that the record accurately reflects my personal performance of the history, physical exam, medical decision making, and the department course for this patient. I have also personally directed, reviewed, and agree with the discharge instructions and disposition. Disposition - Patient ED Disposition Is Patient to be Admitted: Yes - Disposition Disposition Time: 10:42 Condition: FAIR Forms: [employer] ([place]) - Pt Status Changed To: Hospital Disposition Of: Observation
[2018-10-04] MEDS ORDERED: Cefepime 2 GM in Sodium Chloride 0.9% 100 ML IVPB STA (10:40)
[2018-10-04] MEDS ORDERED: Sodium Chloride 3% for Inhalation 4 ML VIAL.NEB IH PRN (11:31)
[2018-10-04] MEDS ORDERED: Albuterol-Ipratrop 3 mg / 0.5 (3 ml) UD INH PRN (11:40)
[2018-10-04] MEDS: Dextrose 5%/Lactated Ringer's 1,000 ML IV SCH ×2 (11:42→20:15)
--- NOTE | 2018-10-04 12:04 | CP.PCM.HP ---
<Jose Cruz Whaley - Last Filed: 10/04/18 15:58> History of Present Illness - History of Present Illness History of Present Illness: Most information was taken by chart and EMS due patient confusion This is a 77 yo female with PMHx of HTN, HLD, and COPD (on home oxygen), previously treated for DM, Patient was brought to ED by EMS due to found unresponsive in her home. EMS report patient glucose was low, value unreported. Patient gave D-50 with response and glucose improval but it continue to trending down. Patient was brought to ER, she was shacking and not answering question. S/P D-50 patient became more awake, patient was alert oriented to self and place but not time, she does not remember anything since yesterday. Otherwise she denies any dizziness, chest pain, sob, abdominal pain, diarrhea, constipation, dysuria or polyuria. PMHx: Obesity, Type II DM, HTN, HLD, COPD (on home oxygen) & low normal LVEF 50% with impaired diastolic relaxation PSHx: Left Hip surgery, cholecystectomy & hysterectomy Allergies: NKDA FHx: unknown Social Hx: denies cigarette, EtOH or elicit drug use; lives alone PMD: Dr. Kirby Duran ED course Vitals 98.7, 88, 150/72 20, 100 nasal canula Glucose 121 Probnp 1410 X-Ray: no active pulmonary disease Patient received D50 and vanco and cefepime Patient was placed on bear Patient will be admitted for hypoglycemia management. Present on Admission - Present on Admission Any Indicators Present on Admission: No Review of Systems - Review of Systems All systems: reviewed and no additional remarkable complaints except Past Patient History - Tetanus Immunizations Tetanus Immunization: Unknown - Past Medical History & Family History Past Medical History?: Yes - Past Social History Smoking Status: Never Smoked - CARDIAC Hx Congestive Heart Failure: Yes Hx Hypercholesterolemia: Yes Hx Hypertension: Yes - PULMONARY Hx Asthma: Yes Hx Chronic Obstructive Pulmonary Disease (COPD): Yes - NEUROLOGICAL Hx Neurological Disorder: No - HEENT Hx HEENT Problems: Yes - RENAL Hx Chronic Kidney Disease: No - ENDOCRINE/METABOLIC Hx Endocrine Disorders: Yes Hx Diabetes Mellitus Type 2: Yes - HEMATOLOGICAL/ONCOLOGICAL Hx Anemia: Yes Hx Human Immunodeficiency Virus (HIV): No - INTEGUMENTARY Hx Dermatological Problems: No - MUSCULOSKELETAL/RHEUMATOLOGICAL Hx Musculoskeletal Disorders: No Hx Falls: Yes (Unknown.) - GASTROINTESTINAL Hx Gall Bladder Disease: Yes - GENITOURINARY/GYNECOLOGICAL Hx Genitourinary Disorders: No - PSYCHIATRIC Hx Depression: Yes - SURGICAL HISTORY Hx Cholecystectomy: Yes - ANESTHESIA Hx Anesthesia: Yes Hx Anesthesia Reactions: No Hx Malignant Hyperthermia: No Meds Allergies/Adverse Reactions: Allergies Allergy/AdvReac Type Severity Reaction Status Date / Time EGG Allergy REDNESS Verified 10/04/18 08:50 Physical Exam - Head Exam Head Exam: ATRAUMATIC, NORMAL INSPECTION, NORMOCEPHALIC - Eye Exam Eye Exam: EOMI, Normal appearance, PERRL Pupil Exam: NORMAL ACCOMODATION, PERRL - ENT Exam ENT Exam: Mucous Membranes Moist, Normal Exam - Neck Exam Neck exam: Positive for: Normal Inspection - Respiratory Exam Respiratory Exam: Clear to Auscultation Bilateral, NORMAL BREATHING PATTERN - Cardiovascular Exam Cardiovascular Exam: REGULAR RHYTHM, +S1, +S2 - GI/Abdominal Exam GI & Abdominal Exam: Normal Bowel Sounds, Soft - Back Exam Back exam: NORMAL INSPECTION - Neurological Exam Neurological exam: Alert - Psychiatric Exam Psychiatric exam: Normal Affect, Normal Mood - Skin Skin Exam: Dry, Intact, Normal Color, Warm Results - Vital Signs Recent Vital Signs: Last Vital Signs Temp 98.2 F 10/04/18 11:45 Pulse 82 10/04/18 11:45 Resp 20 10/04/18 11:45 BP 150/70 10/04/18 11:45 Pulse Ox 99 10/04/18 11:45 - Labs Result Diagrams: 10/04/18 12:20 10/04/18 09:15 Labs: Laboratory Results - last 24 hr 10/04/18 10/04/18 10/04/18 08:54 09:15 09:15 WBC 10.6 D RBC 4.29 Hgb 12.2 D Hct 37.4 MCV 87.0 D MCH 28.5 MCHC 32.7 L RDW 16.5 H Plt Count 296 MPV 9.2 Neut % (Auto) 83.8 H Lymph % (Auto) 10.5 L [place] % (Auto) 5.2 Eos % (Auto) 0.4 Baso % (Auto) 0.1 Neut # (Auto) 8.9 H Lymph # (Auto) 1.1 [place] # (Auto) 0.6 Eos # (Auto) 0.0 Baso # (Auto) 0.0 Sodium 141 Potassium 4.5 Chloride 105 Carbon Dioxide 26 Anion Gap 15 BUN 17 Creatinine 0.7 Est GFR ( Amer) > 60 Est GFR (Non-Af Amer) > 60 POC Glucose (mg/dL) 105 Random Glucose 79 Calcium 9.3 Total Bilirubin 0.3 AST 24 ALT 10 Alkaline Phosphatase 58 Total Protein 7.1 Albumin 3.8 Globulin 3.3 Albumin/Globulin Ratio 1.1 Influenza Typ A,B (EIA) 10/04/18 10/04/18 09:15 10:30 WBC RBC Hgb Hct MCV MCH MCHC RDW Plt Count MPV Neut % (Auto) Lymph % (Auto) [place] % (Auto) Eos % (Auto) Baso % (Auto) Neut # (Auto) Lymph # (Auto) [place] # (Auto) Eos # (Auto) Baso # (Auto) Sodium Potassium Chloride Carbon Dioxide Anion Gap BUN Creatinine Est GFR ( Amer) Est GFR (Non-Af Amer) POC Glucose (mg/dL) 118 H Random Glucose Calcium Total Bilirubin AST ALT Alkaline Phosphatase Total Protein Albumin Globulin Albumin/Globulin Ratio Influenza Typ A,B (EIA) Negative for flu a/b Assessment & Plan - Assessment and Plan (Free Text) Assessment: This is a 77 yo female with PMHx of HTN, HLD, and COPD (on home oxygen), previously treated for DM, Admitted for hypoglycemia treatment X-ray no acute disease Plan: Hypoglycemia Stop diabetes medication Check glucose Q4h Regular diet will continue to monitor Atypical Pneumonia On vanco and zosyn F/U UC, legionella, blood culture, sputum culture with gram stain F/U procalcitonin and strep pneumonia Mild intermittent asthma --Continue home meds --Nasal HTN Chronic Continue home medication Diet. regular DVt prophylaxis Lovenox 40mg SC Full Code <Janie Yoon - Last Filed: 10/04/18 19:47> Results - Vital Signs Recent Vital Signs: Last Vital Signs Temp 99.5 F 10/04/18 17:00 Pulse 86 10/04/18 17:00 Resp 20 10/04/18 17:00 BP 124/71 10/04/18 17:00 Pulse Ox 94 L 10/04/18 17:00 - Labs Result Diagrams: 10/04/18 12:20 10/04/18 09:15 Labs: Laboratory Results - last 24 hr 10/04/18 10/04/1810/04/19 08:54 09:15 09:15 WBC 10.6 D RBC 4.29 Hgb 12.2 D Hct 37.4 MCV 87.0 D MCH 28.5 MCHC 32.7 L RDW 16.5 H Plt Count 296 MPV 9.2 Neut % (Auto) 83.8 H Lymph % (Auto) 10.5 L [place] % (Auto) 5.2 Eos % (Auto) 0.4 Baso % (Auto) 0.1 Neut # (Auto) 8.9 H Lymph # (Auto) 1.1 [place] # (Auto) 0.6 Eos # (Auto) 0.0 Baso # (Auto) 0.0 Sodium 141 Potassium 4.5 Chloride 105 Carbon Dioxide 26 Anion Gap 15 BUN 17 Creatinine 0.7 Est GFR ( Amer) > 60 Est GFR (Non-Af Amer) > 60 POC Glucose (mg/dL) 105 Random Glucose 79 Calcium 9.3 Total Bilirubin 0.3 AST 24 ALT 10 Alkaline Phosphatase 58 NT-Pro-B Natriuret Pep Total Protein 7.1 Albumin 3.8 Globulin 3.3 Albumin/Globulin Ratio 1.1 Urine Color Urine Clarity Urine pH Ur Specific [place] Urine Protein Urine Glucose (UA) Urine Ketones Urine Blood Urine Nitrate Urine Bilirubin Urine Urobilinogen Ur Leukocyte Esterase Urine RBC (Auto) Urine Microscopic WBC Ur Squamous Epith Cells Hyaline Casts Influenza Typ A,B (EIA) 10/04/18 10/04/18 10/04/18 09:15 10:30 11:31 WBC RBC Hgb Hct MCV MCH MCHC RDW Plt Count MPV Neut % (Auto) Lymph % (Auto) [place] % (Auto) Eos % (Auto) Baso % (Auto) Neut # (Auto) Lymph # (Auto) [place] # (Auto) Eos # (Auto) Baso # (Auto) Sodium Potassium Chloride Carbon Dioxide Anion Gap BUN Creatinine Est GFR ( Amer) Est GFR (Non-Af Amer) POC Glucose (mg/dL) 118 H Random Glucose Calcium Total Bilirubin AST ALT Alkaline Phosphatase NT-Pro-B Natriuret Pep 1410 H Total Protein Albumin Globulin Albumin/Globulin Ratio Urine Color Urine Clarity Urine pH Ur Specific [place] Urine Protein Urine Glucose (UA) Urine Ketones Urine Blood Urine Nitrate Urine Bilirubin Urine Urobilinogen Ur Leukocyte Esterase Urine RBC (Auto) Urine Microscopic WBC Ur Squamous Epith Cells Hyaline Casts Influenza Typ A,B (EIA) Negative for flu a/b 10/04/18 10/04/18 10/04/18 11:40 12:20 14:57 WBC 10.3 RBC 4.01 Hgb 11.0 L Hct 33.7 L MCV 84.1 D MCH 27.6 MCHC 32.8 L RDW 16.8 H Plt Count 299 MPV Neut % (Auto) Lymph % (Auto) [place] % (Auto) Eos % (Auto) Baso % (Auto) Neut # (Auto) Lymph # (Auto) [place] # (Auto) Eos # (Auto) Baso # (Auto) Sodium Potassium Chloride Carbon Dioxide Anion Gap BUN Creatinine Est GFR ( Amer) Est GFR (Non-Af Amer) POC Glucose (mg/dL) 121 H 68 Random Glucose Calcium Total Bilirubin AST ALT Alkaline Phosphatase NT-Pro-B Natriuret Pep Total Protein Albumin Globulin Albumin/Globulin Ratio Urine Color Urine Clarity Urine pH Ur Specific [place] Urine Protein Urine Glucose (UA) Urine Ketones Urine Blood Urine Nitrate Urine Bilirubin Urine Urobilinogen Ur Leukocyte Esterase Urine RBC (Auto) Urine Microscopic WBC Ur Squamous Epith Cells Hyaline Casts Influenza Typ A,B (EIA) 10/04/18 16:53 WBC RBC Hgb Hct MCV MCH MCHC RDW Plt Count MPV Neut % (Auto) Lymph % (Auto) [place] % (Auto) Eos % (Auto) Baso % (Auto) Neut # (Auto) Lymph # (Auto) [place] # (Auto) Eos # (Auto) Baso # (Auto) Sodium Potassium Chloride Carbon Dioxide Anion Gap BUN Creatinine Est GFR ( Amer) Est GFR (Non-Af Amer) POC Glucose (mg/dL) Random Glucose Calcium Total Bilirubin AST ALT Alkaline Phosphatase NT-Pro-B Natriuret Pep Total Protein Albumin Globulin Albumin/Globulin Ratio Urine Color Yellow Urine Clarity Clear Urine pH 6.0 Ur Specific [place] 1.010 Urine Protein Negative Urine Glucose (UA) Neg Urine Ketones Negative Urine Blood Negative Urine Nitrate Negative Urine Bilirubin Negative Urine Urobilinogen 0.2-1.0 Ur Leukocyte Esterase Trace Urine RBC (Auto) 3 Urine Microscopic WBC 3 Ur Squamous Epith Cells < 1 Hyaline Casts 0-2 Influenza Typ A,B (EIA) Attending/Attestation - Attestation I have personally seen and examined this patient.: Yes I have fully participated in the care of the patient.: Yes I have reviewed all pertinent clinical information: Yes Notes (Text): 10/04/18 19:46 Agree with findings and plan as above.
[2018-10-04] MEDS ORDERED: Vancomycin 1 g Inj ONE (12:36)
[2018-10-04 13:04] LABS: MEAN CELL VOLUME 84.1 fl (81.0-99.0); MEAN CORPUSCULAR HEMOGLOBIN 27.6 pg (27.0-31.0); MEAN CORPUSCULAR HGB CONC 32.8 g/dL (33.0-37.0); RBC 4.01 Mil/uL (3.80-5.20); RED CELL DISTRIBUTION WIDTH 16.8 % (11.5-14.5); WHITE BLOOD COUNT 10.3 K/uL (4.8-10.8)
--- NOTE | 2018-10-04 13:15 | RAD ---
Date of service: 10/04/2018 HISTORY: possible admission COMPARISON: 09/26/2018. FINDINGS: LUNGS: The lungs are well inflated. There is mild pulmonary venous congestion. No focal consolidation. PLEURA: No pleural effusions or pneumothorax. CARDIOVASCULAR: There is moderate cardiomegaly. There are aortic atherosclerotic calcifications present. OSSEOUS STRUCTURES: Within normal limits for the patient's age. VISUALIZED UPPER ABDOMEN: Normal. OTHER FINDINGS: None. IMPRESSION: No active pulmonary disease. Moderate cardiomegaly and mild pulmonary venous congestion.
[2018-10-04] MEDS ORDERED: Albuterol HFA 90 mcg/actuation (8 g) IH PRN (16:04)
[2018-10-04 17:07] LABS: SQUAMOUS EPITHIAL < 1 /hpf (0-5); URINE BILIRUBIN NEGATIVE (NEGATIVE); URINE BLOOD NEGATIVE (NEGATIVE); URINE CLARITY CLEAR (Clear); URINE COLOR YELLOW (YELLOW); URINE GLUCOSE (UA) NEG (NEGATIVE); URINE HYALINE CAST 0-2 /hpf (0-2); URINE LEUKOCYTE ESTERASE TRACE Leu/uL (Negative); URINE PROTEIN NEGATIVE (NEGATIVE); URINE UROBILINOGEN 0.2-1.0 mg/dL (0.2-1.0)
[2018-10-04] MEDS ORDERED: Dextrose 50% SYRINGE Inj (50 ml) IV PRN (18:20)
[2018-10-04] MEDS ORDERED: Glucagon Recombinant 1 mg Inj IM PRN (18:20)
--- NOTE | 2018-10-04 20:25 | CARD ---
APPROVED REPORT Date of service: 10/04/2018 EKG Measurement Heart [id number] <Conclusion> Normal sinus rhythm Non specific T-wave changes Abnormal ECG
--- NOTE | 2018-10-04 20:29 | CARD ---
APPROVED REPORT Date of service: 10/04/2018 EKG Measurement Heart [id number] <Conclusion> Normal sinus rhythm Baseline artifact precludes rhythm assessment Cannot rule out Anterior infarct, age undetermined Nonspecific ST-T changes Abnormal ECG
[2018-10-04] MEDS: Fluticasone-Salmeterol 250-50mcg Diskus IH SCH (21:26)
[2018-10-05] MEDS: Dextrose 5%/Lactated Ringer's 1,000 ML IV SCH ×2 (01:45→03:45)
--- NOTE | 2018-10-05 07:52 | CP.PCM.PN ---
Subjective - Date & Time of Evaluation Date of Evaluation: 10/05/18 Time of Evaluation: 07:52 Objective - Vital Signs/Intake and Output Vital Signs (last 24 hours): Temp Pulse Resp BP Pulse Ox 99.9 F H 100 H 18 128/79 95 10/04/18 23:46 10/04/18 23:46 10/04/18 23:46 10/04/18 23:46 10/04/18 23:46 - Medications Medications: Current Medications Albuterol (Ventolin Hfa 90 Mcg/Actuation (8 G)) 2 puff IH Q4 PRN PRN Reason: Shortness of Breath Albuterol/Ipratropium (Duoneb 3 Mg/0.5 Mg (3 Ml) Ud) 3 ml INH RQ4 PRN PRN Reason: Shortness of Breath Dextrose (Dextrose 50% Inj) 0 ml IV STAT PRN; Protocol PRN Reason: Hypoglycemia Protocol Dextrose (Glutose 15) 0 gm PO ONCE PRN; Protocol PRN Reason: Hypoglycemia Protocol Enoxaparin Sodium (Lovenox) 40 mg SC DAILY [facility]; Protocol Folic Acid (Folic Acid) 1 mg PO DAILY [facility] Furosemide (Lasix) 20 mg PO DAILY [facility] Glucagon (Glucagen Diagnostic Kit) 0 mg IM STAT PRN; Protocol PRN Reason: Hypoglycemia Protocol Vancomycin HCl 1 gm/ Sodium (Chloride) 250 mls @ 166.667 mls/hr IVPB Q12 [facility]; Protocol Last Admin: 10/04/18 21:27 Dose: 166.667 mls/hr Piperacillin Sod/Tazobactam (Sod 2.25 gm/ Sodium Chloride) 100 mls @ 100 mls/hr IVPB Q12 [facility]; Protocol Last Admin: 10/04/18 20:17 Dose: 100 mls/hr Dextrose/Lactated Ringer's (Dextrose 5%/Lactated Ringer's) 1,000 mls @ 125 mls/hr IV .Q8H [facility] Stop: 10/05/18 11:36 Last Admin: 10/05/18 03:45 Dose: Not Given Lisinopril (Zestril) 10 mg PO DAILY [facility] Montelukast Sodium (Singulair) 10 mg PO HS [facility] Last Admin: 10/04/18 21:31 Dose: 10 mg Pantoprazole Sodium (Protonix Ec Tab) 40 mg PO DAILY [facility] Fluticasone/Salmeterol (Advair Diskus 250/50) 1 puff IH Q12 [facility] Last Admin: 10/04/18 21:26 Dose: 1 puff Sertraline HCl (Zoloft) 100 mg PO DAILY [facility] - Labs Labs: 10/04/18 12:20 10/04/18 09:15
[2018-10-05 08:23] VITALS: BP 124/79; PULSE 88; RESP 20; TEMP 99.1; O2SAT 98
[2018-10-05] MEDS: Fluticasone-Salmeterol 250-50mcg Diskus IH SCH (08:51)
[2018-10-05] MEDS ORDERED: Enoxaparin 40 mg Syringe SC SCH (09:00)
[2018-10-05] MEDS ORDERED: Pantoprazole 40 mg EC Tab PO SCH (09:00)
--- NOTE | 2018-10-05 10:13 | CP.PCM.DIS ---
Provider - Provider Date of Admission: 10/04/18 10:41 Attending physician: Janie Yoon DO Primary care physician: Dr. Duran Consults: None Time Spent in preparation of Discharge (in minutes): 20 Hospital Course - Lab Results Lab Results: Micro Results 10/04/18 09:15 Blood Blood Culture - Preliminary NO GROWTH AFTER 24 HOURS Most Recent Lab Values WBC 10.3 K/uL (4.8-10.8) 10/04/18 12:20 RBC 4.01 Mil/uL (3.80-5.20) 10/04/18 12:20 Hgb 11.0 g/dL (12.0-16.0) L 10/04/18 12:20 Hct 33.7 % (34.0-47.0) L 10/04/18 12:20 MCV 84.1 fl (81.0-99.0) D 10/04/18 12:20 MCH 27.6 pg (27.0-31.0) 10/04/18 12:20 MCHC 32.8 g/dL (33.0-37.0) L 10/04/18 12:20 RDW 16.8 % (11.5-14.5) H 10/04/18 12:20 Plt Count 299 K/uL (130-400) 10/04/18 12:20 MPV 9.2 fl (7.2-11.7) 10/04/18 09:15 Neut % (Auto) 83.8 % (50.0-75.0) H 10/04/18 09:15 Lymph % (Auto) 10.5 % (20.0-40.0) L 10/04/18 09:15 [place] % (Auto) 5.2 % (0.0-10.0) 10/04/18 09:15 Eos % (Auto) 0.4 % (0.0-4.0) 10/04/18 09:15 Baso % (Auto) 0.1 % (0.0-2.0) 10/04/18 09:15 Neut # (Auto) 8.9 K/uL (1.8-7.0) H 10/04/18 09:15 Lymph # (Auto) 1.1 K/uL (1.0-4.3) 10/04/18 09:15 [place] # (Auto) 0.6 K/uL (0.0-0.8) 10/04/18 09:15 Eos # (Auto) 0.0 K/uL (0.0-0.7) 10/04/18 09:15 Baso # (Auto) 0.0 K/uL (0.0-0.2) 10/04/18 09:15 Sodium 141 mmol/l (132-148) 10/04/18 09:15 Potassium 4.5 MMOL/L (3.6-5.0) 10/04/18 09:15 Chloride 105 mmol/L (98-107) 10/04/18 09:15 Carbon Dioxide 26 mmol/L (22-30) 10/04/18 09:15 Anion Gap 15 (10-20) 10/04/18 09:15 BUN 17 mg/dl (7-17) 10/04/18 09:15 Creatinine 0.7 mg/dl (0.7-1.2) 10/04/18 09:15 Est GFR ( Amer) > 60 10/04/18 09:15 Est GFR (Non-Af Amer) > 60 10/04/18 09:15 POC Glucose (mg/dL) 253 mg/dL (65-110) H 10/05/18 05:05 Random Glucose 79 mg/dL (65-105) 10/04/18 09:15 Calcium 9.3 mg/dL (8.4-10.2) 10/04/18 09:15 Total Bilirubin 0.3 mg/dl (0.2-1.3) 10/04/18 09:15 AST 24 U/L (14-36) 10/04/18 09:15 ALT 10 U/L (9-52) 10/04/18 09:15 Alkaline Phosphatase 58 U/L (38-126) 10/04/18 09:15 NT-Pro-B Natriuret Pep 1410 pg/ml (0-900) H 10/04/18 11:31 Total Protein 7.1 G/DL (6.3-8.2) 10/04/18 09:15 Albumin 3.8 g/dL (3.5-5.0) 10/04/18 09:15 Globulin 3.3 gm/dL (2.2-3.9) 10/04/18 09:15 Albumin/Globulin Ratio 1.1 (1.0-2.1) 10/04/18 09:15 Procalcitonin < 0.05 NG/ML (0.19-0.49) L 10/04/18 12:20 Urine Color Yellow (YELLOW) 10/04/18 16:53 Urine Clarity Clear (Clear) 10/04/18 16:53 Urine pH 6.0 (5.0-8.0) 10/04/18 16:53 Ur Specific [place] 1.010 (1.003-1.030) 10/04/18 16:53 Urine Protein Negative mg/dL (NEGATIVE) 10/04/18 16:53 Urine Glucose (UA) Neg mg/dL (NEGATIVE) 10/04/18 16:53 Urine Ketones Negative mg/dL (NEGATIVE) 10/04/18 16:53 Urine Blood Negative (NEGATIVE) 10/04/18 16:53 Urine Nitrate Negative (NEGATIVE) 10/04/18 16:53 Urine Bilirubin Negative (NEGATIVE) 10/04/18 16:53 Urine Urobilinogen 0.2-1.0 mg/dL (0.2-1.0) 10/04/18 16:53 Ur Leukocyte Esterase Trace [place]/uL (Negative) 10/04/18 16:53 Urine RBC (Auto) 3 /hpf (0-3) 10/04/18 16:53 Urine Microscopic WBC 3 /hpf (0-5) 10/04/18 16:53 Ur Squamous Epith Cells < 1 /hpf (0-5) 10/04/18 16:53 Hyaline Casts 0-2 /hpf (0-2) 10/04/18 16:53 Influenza Typ A,B (EIA) Negative for flu a/b (NEGATIVE) 10/04/18 09:15 - Hospital Course Hospital Course: 77 y/o female with history of HTN, COPD on home oxygen, hypercholesterolemia, brought to the ED for evaluation after being found unresponsive at home with low Blood sugar ( not recorded by EMS ). She was given D50 with response and brought to ED for evaluation since she still was confused and her sugars kept dropping she was hypothermic and shivering. Blood work up showed normal WBC , Ua - cl;ear , CXR showed no active disease She was started on D5NS infusion for medication induced Hypoglycemia As per medical records patient was recently admitted in the hospital with falls and hypoglycemia and discharged on 10/28/18 with advise to stop taking Glimepiride and Januvia since her HgbA1c was 5.5 and she had significant hypoglycemia with Accu 20 at that time. Patient now states that she continued taking her diabetic pills just the same because she forgot At present she is alert oriented , denies any pain or discomfort ,neurologically intact, wants to go home. Accucheck now 253 Again reinforced importance of not taking diabetic medications Will discharge patient home Patient has homemaker 5 hours/day. Will providew written instructions for Homemaker as well not to give diabetic medications to patient. Follow up with PMD Hold Diabetic Po meds Dx 1. Medication induced Hypoglycemia-- stop all diabetic medications, Januvia, Metformin and Glimepiride. 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 COPD , chronic , stable--- continue home O2 , singulair, Advair, proair 5. Hypertension -- controlled 6. Depression - on Zoloft Discharge Exam - Head Exam Head Exam: ATRAUMATIC, NORMAL INSPECTION, NORMOCEPHALIC - Eye Exam Eye Exam: EOMI, PERRL Pupil Exam: NORMAL ACCOMODATION - ENT Exam ENT Exam: Normal Exam - Neck Exam Neck exam: Full Rom, Normal Inspection - Respiratory Exam Respiratory Exam: Clear to PA & Lateral, NORMAL BREATHING PATTERN. absent: Rhonchi, Wheezes, Respiratory Distress - Cardiovascular Exam Cardiovascular Exam: REGULAR RHYTHM, RRR, +S1, +S2. absent: JVD - GI/Abdominal Exam GI & Abdominal Exam: Normal Bowel Sounds, Soft. absent: Guarding, Rebound, Tenderness - Rectal Exam Rectal Exam: Deferred - Extremities Exam Extremities exam: normal capillary refill, pedal pulses present - Back Exam Back exam: NORMAL INSPECTION - Neurological Exam Neurological exam: Alert, CN II-XII Intact, Oriented x3 - Psychiatric Exam Psychiatric exam: Normal Affect - Skin Skin Exam: Dry, Warm Discharge Plan - Follow Up Plan Condition: STABLE Disposition: HOME/ ROUTINE Patient education suggested?: Yes Additional Instructions: Stop taking all diabetic Medications at home Referrals: Kirby Duran MD [Staff Provider] -
== END 2018-10-05 13:13 | disposition home or self-care (01) ==
LOC: H.ER 08:43 → H.ERHOLD 10:41 → H.MEDSURG1 14:35
PROVIDERS: ADMIT Student in an Organized Health Care Education/Training Program; ATTEND Student in an Organized Health Care Education/Training Program
DX: T38.3X1A Poisoning by insulin and oral hypoglycemic [antidiabetic] drugs, accidental (unintentional), initial encounter (principal); E78.5 Hyperlipidemia, unspecified; Z99.81 Dependence on supplemental oxygen; Z91.012 Allergy to eggs; I11.0 Hypertensive heart disease with heart failure; I50.9 Heart failure, unspecified; E78.00 Pure hypercholesterolemia, unspecified; E66.9 Obesity, unspecified; Z68.30 Body mass index [BMI] 30.0-30.9, adult; E11.649 Type 2 diabetes mellitus with hypoglycemia without coma; J44.9 Chronic obstructive pulmonary disease, unspecified; D63.8 Anemia in other chronic diseases classified elsewhere; F32.9 Major depressive disorder, single episode, unspecified; Z79.84 Long term (current) use of oral hypoglycemic drugs
CPT/HCPCS: 71045; 80053; 81003; 82948; 83880; 84145; 85025; 85027; 87040; 87086; 87449; 87804; 93005; 96361; 96365; 96366; 96367; 96372; 96375; 99285; G0378; J0692; J1650; J2543; J7070; J7120

== ENCOUNTER 2018-10-28 11:41 | Emergency (ER) | payer OTHER ==
[2018-10-28 11:50] VITALS: BMI 31.2
[2018-10-28 11:51] VITALS: TEMP 98.3
--- NOTE | 2018-10-28 12:13 | ED PDOC ---
HPI: Psych/Substance Abuse Time Seen by Provider: 10/28/18 11:58 Chief Complaint (Nursing): Psychiatric Evaluation Chief Complaint (Provider): Psychiatric Evaluation History Per: Patient, Family History/Exam Limitations: no limitations Additional Complaint(s): 78 y/o female referral by PMD presents to the ED due to 40 pounds weight loss over 2 months that is associated with decreased appetite. Family states patient has been depressed and confused at night. Patient denies abdominal pain, nausea, vomiting, diarrhea, bloody stool, suicidal ideation, or homicidal ideation. PMD: Kirby Gray Past Medical History Reviewed: Historical Data, Nursing Documentation, Vital Signs Vital Signs: Last Vital Signs Temp 98.3 F 10/28/18 11:50 Pulse 112 H 10/28/18 11:50 Resp 20 10/28/18 11:50 BP 132/71 10/28/18 11:50 Pulse Ox 97 10/28/18 11:50 - Medical History PMH: Anemia, Asthma, CHF, COPD, Depression, Diabetes, Gall Bladder Disease, HTN, Hypercholesterolemia Denies: HIV, Chronic Kidney Disease - Surgical History Surgical History: Cholecystectomy - Family History Family History: States: Unknown Family Hx - Home Medications Home Medications: Ambulatory Orders Medication Instructions Recorded Lisinopril [Zestril] 10 mg PO DAILY 10/02/16 Montelukast [Singulair] 10 mg PO HS 10/02/16 Furosemide [Lasix] 20 mg PO DAILY #30 tab 10/04/16 Fluticasone/Salmeterol [Advair 1 puff IH Q12 04/08/18 250-50 Diskus] Folic Acid 1 mg PO DAILY 04/08/18 traMADol [Ultram] 50 mg PO Q4 PRN 04/08/18 Albuterol Sulfate [Proair Hfa] 2 puff IH Q4 PRN 08/09/18 Pantoprazole Sodium [Protonix] 40 mg PO DAILY 08/09/18 Megestrol Acetate [Megace Es] 5 ml PO DAILY 09/26/18 Promethazine DM [Phenergan DM 5 ml PO Q6 PRN 09/26/18 Syrup] Sertraline [Zoloft] 100 mg PO DAILY 09/26/18 Sulfamethoxazole/Trimethoprim 1 tab PO BID #20 tab 10/28/18 [Bactrim DS 800 mg-160 mg] - Allergies Allergies/Adverse Reactions: Allergies Allergy/AdvReac Type Severity Reaction Status Date / Time EGG Allergy REDNESS Verified 10/04/18 08:50 Review of Systems ROS Statement: Except As Marked, All Systems Reviewed And Found Negative Constitutional: Positive for: Weight loss, Other ((+)loss of appetite.) Gastrointestinal: Negative for: Nausea, Vomiting, Abdominal Pain, Diarrhea, Melena Psych: Positive for: Other ((-) Homicidal ideation. ). Negative for: Suicidal ideation Physical Exam - Reviewed Nursing Documentation Reviewed: Yes Vital Signs Reviewed: Yes - Physical Exam Appears: Positive for: Well, Non-toxic, No Acute Distress Head Exam: Positive for: ATRAUMATIC, NORMOCEPHALIC Skin: Positive for: Normal Color, Warm, Dry Eye Exam: Positive for: EOMI, Normal appearance, PERRL ENT: Positive for: Normal ENT Inspection Neck: Positive for: Normal, Painless ROM, Supple Cardiovascular/Chest: Positive for: Regular Rate, Rhythm. Negative for: Murmur Respiratory: Positive for: Normal Breath Sounds. Negative for: Wheezing Gastrointestinal/Abdominal: Positive for: Normal Exam, Soft. Negative for: Tenderness Back: Positive for: Normal Inspection. Negative for: L CVA Tenderness, R CVA Tenderness Extremity: Positive for: Normal ROM Neurological/Psych: Positive for: Awake, Alert, Normal Tone, Oriented (x3). Negative for: Mood/Affect, Motor/Sensory Deficits - Laboratory Results Result Diagrams: 10/28/18 12:30 10/28/18 12:30 - ECG O2 Sat by Pulse Oximetry: 97 Medical Decision Making Medical Decision Making: Time: 1204 Initial Impression: Weight loss Initial Plan:Will obtain labs to rule out organic cause and evaluation for psych . -EKG -CBC -CMP -X-ray -Urinalysis -Alcohol Serum -Drug screen Evaluated by Crisis and they discussed with dr. Griffith. Pt unwilling to sign in and phle5oa SI/HI. Can be followed as outpt. Discussed with Dr. Duran. Scribe Attestation: Documented by Sabina Taylor, acting as a scribe for Demetrio Turner. Provider Scribe Attestation: All medical record entries made by the Scribe were at my direction and personally dictated by me. I have reviewed the chart and agree that the record accurately reflects my personal performance of the history, physical exam, medical decision making, and the department course for this patient. I have also personally directed, reviewed, and agree with the discharge instructions and disposition. Disposition - Clinical Impression Clinical Impression: UTI (urinary tract infection), Depression - Patient ED Disposition Is Patient to be Admitted: No Counseled Patient/Family Regarding: Studies Performed, Diagnosis, Need For Followup, Rx Given - Disposition Referrals: [facility] [Outside] Disposition: Routine/Home Disposition Time: 13:53 Condition: FAIR Prescriptions: Sulfamethoxazole/Trimethoprim [Bactrim DS 800 mg-160 mg] 1 tab PO BID #20 tab Instructions: Urinary Tract Infections in Adults, Depression, Adult (DC) Forms: [facility] (Indonesian) Print Language: SAMMARINESE
[2018-10-28 12:45] LABS: BASO % 0.5 % (0.0-2.0); EOS # 0.2 K/uL (0.0-0.7); EOS % 2.4 % (0.0-4.0); HEMOGLOBIN 11.1 g/dL (12.0-16.0); LYMPH # 2.3 K/uL (1.0-4.3); LYMPH % 27.3 % (20.0-40.0); MEAN CELL VOLUME 84.4 fl (81.0-99.0); MEAN CORPUSCULAR HEMOGLOBIN 27.3 pg (27.0-31.0); MEAN CORPUSCULAR HGB CONC 32.3 g/dL (33.0-37.0); MEAN PLATELET VOLUME 9.2 fl (7.2-11.7); MONO # 0.5 K/uL (0.0-0.8); NEUT # 5.3 K/uL (1.8-7.0); NEUT % 63.8 % (50.0-75.0); RBC 4.07 Mil/uL (3.80-5.20); RED CELL DISTRIBUTION WIDTH 17.1 % (11.5-14.5); WHITE BLOOD COUNT 8.4 K/uL (4.8-10.8)
[2018-10-28 12:54] LABS: SQUAMOUS EPITHIAL 1 /hpf (0-5); URINE BACTERIA FEW (<OCC); URINE BILIRUBIN NEGATIVE (NEGATIVE); URINE BLOOD SMALL (NEGATIVE); URINE CLARITY CLOUDY (Clear); URINE COLOR YELLOW (YELLOW); URINE GLUCOSE (UA) NEG (NEGATIVE); URINE LEUKOCYTE ESTERASE LARGE Leu/uL (Negative); URINE PROTEIN NEGATIVE (NEGATIVE); URINE UROBILINOGEN 0.2-1.0 mg/dL (0.2-1.0)
[2018-10-28 12:59] LABS: PHENCYCLIDINE, UR NEGATIVE (NEGATIVE)
[2018-10-28 13:02] LABS: BARBITURATES, UR NEGATIVE (NEGATIVE); BENZODIAZEPINES, UR NEGATIVE (NEGATIVE); OPIATES, UR NEGATIVE (NEGATIVE)
[2018-10-28 13:03] LABS: ALB/GLOB RATIO 1.1 (1.0-2.1); ALBUMIN 3.7 g/dL (3.5-5.0); ALT/SGPT 27 U/L (9-52); AST/SGOT 33 U/L (14-36); BLOOD UREA NITROGEN 18 mg/dl (7-17); GFR NON-AFRICAN AMERICAN > 60
--- NOTE | 2018-10-28 13:18 | RAD ---
HISTORY: Depression COMPARISON: Chest x-ray performed 10/04/18 TECHNIQUE: Chest PA and lateral, 2 views FINDINGS: Examination limited by habitus and patient obliquity. LUNGS: Mild pulmonary venous congestion. Please note that chest x-ray has limited sensitivity for the detection of pulmonary masses. PLEURA: No significant pleural effusion identified. No definite pneumothorax . CARDIOVASCULAR: Cardiomegaly. Ectatic aorta. Atherosclerotic calcifications of the aorta. OSSEOUS STRUCTURES: Osseous demineralization. Degenerative changes. VISUALIZED UPPER ABDOMEN: Upper abdominal surgical clips. OTHER FINDINGS: None. IMPRESSION: Cardiomegaly. Ectatic aorta containing atherosclerotic calcifications. Mild pulmonary venous congestion. Mild biapical pleural thickening. Upper abdominal surgical clips.
[2018-10-28] MEDS ORDERED: Tmp-Smz 800 mg-160 mg DS Tab PO STA (13:35)
[2018-10-28] MEDS ORDERED: Tmp-Smz 800 mg-160 mg DS Tab ONE (13:42)
[2018-10-28 14:28] VITALS: BP 143/80; PULSE 77; RESP 18; O2SAT 98
--- NOTE | 2018-10-28 19:02 | CARD ---
APPROVED REPORT Date of service: 10/28/2018 EKG Measurement Heart [id number] <Conclusion> Sinus tachycardia Low voltage QRS Cannot rule out Anterior infarct, age undetermined Abnormal ECG
== END 2018-10-28 14:09 | disposition home or self-care (01) ==
LOC: H.ER 11:41
DX: N39.0 Urinary tract infection, site not specified (principal); F32.9 Major depressive disorder, single episode, unspecified; E11.9 Type 2 diabetes mellitus without complications; J44.9 Chronic obstructive pulmonary disease, unspecified; I11.0 Hypertensive heart disease with heart failure
CPT/HCPCS: 71046; 80053; 81003; 85025; 87086; 87181; 93005; 99284; G0480

== ENCOUNTER 2018-11-02 10:42 | Emergency (ER) | payer OTHER ==
[2018-11-02] MEDS ORDERED: Albuterol-Ipratrop 3 mg / 0.5 (3 ml) UD ONE ×3 (10:58→11:20)
--- NOTE | 2018-11-02 11:04 | ED PDOC ---
HPI: Chest Pain Time Seen by Provider: 11/02/18 10:53 Chief Complaint (Nursing): Shortness Of Breath Chief Complaint (Provider): AMS History/Exam Limitations: clinical condition Additional History Per: Patient Additional Complaint(s): 78yo female with history of COPD, Afib, dementia, brought to ER. Patient found naked in home "slumped over". Patient is a poor historian, not answering questions at this time. PMD: Dr. Duran Past Medical History Reviewed: Historical Data, Nursing Documentation, Vital Signs Vital Signs: Last Vital Signs Temp 97.8 F 11/02/18 10:53 Pulse 162 H 11/02/18 10:53 Resp 32 H 11/02/18 10:53 BP 134/98 H 11/02/18 10:53 Pulse Ox 100 11/02/18 10:53 - Medical History PMH: Anemia, Asthma, CHF, COPD, Depression, Diabetes, Gall Bladder Disease, HTN, Hypercholesterolemia Denies: Hepatitis, HIV, Chronic Kidney Disease, Seizures, Sexually Transmitted Disease - Surgical History Surgical History: Cholecystectomy - Family History Family History: States: Unknown Family Hx - Home Medications Home Medications: Ambulatory Orders Medication Instructions Recorded Lisinopril [Zestril] 10 mg PO DAILY 10/02/16 Montelukast [Singulair] 10 mg PO HS 10/02/16 Furosemide [Lasix] 20 mg PO DAILY #30 tab 10/04/16 Fluticasone/Salmeterol [Advair 1 puff IH Q12 04/08/18 250-50 Diskus] Folic Acid 1 mg PO DAILY 04/08/18 traMADol [Ultram] 50 mg PO Q4 PRN 04/08/18 Albuterol Sulfate [Proair Hfa] 2 puff IH Q4 PRN 08/09/18 Pantoprazole Sodium [Protonix] 40 mg PO DAILY 08/09/18 Megestrol Acetate [Megace Es] 5 ml PO DAILY 09/26/18 Promethazine DM [Phenergan DM 5 ml PO Q6 PRN 09/26/18 Syrup] Sertraline [Zoloft] 100 mg PO DAILY 09/26/18 Sulfamethoxazole/Trimethoprim 1 tab PO BID #20 tab 10/28/18 [Bactrim DS 800 mg-160 mg] - Allergies Allergies/Adverse Reactions: Allergies Allergy/AdvReac Type Severity Reaction Status Date / Time EGG Allergy REDNESS Verified 10/04/18 08:50 Review of Systems Review Of Systems: ROS cannot be obtained secondary to pt's inabilty to answer questions. Cardiovascular: Positive for: Chest Pain Respiratory: Positive for: Shortness of Breath Physical Exam - Reviewed Nursing Documentation Reviewed: Yes Vital Signs Reviewed: Yes - Physical Exam Appears: Positive for: In Acute Distress (Moderate respiratory) Head Exam: Positive for: ATRAUMATIC, NORMOCEPHALIC Skin: Positive for: Normal Color, Warm, Dry Eye Exam: Positive for: Normal appearance, EOMI, PERRL Cardiovascular/Chest: Positive for: Tachycardia (regular rate) Respiratory: Positive for: Wheezing (bilaterally), Respiratory Distress (moderate) Gastrointestinal/Abdominal: Positive for: Soft Extremity: Positive for: Normal ROM (moving all extremities) Neurological/Psych: Positive for: 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 Negative for: Lethargic, Facial Droop - Laboratory Results Result Diagrams: 11/02/18 11:06 11/02/18 11:06 - ECG ECG: Positive for: Interpreted By Me, Viewed By Me Interpretation Of Abn EK:[id number] Sinus tachycardia @ 101 BPM, ST elevations inferior leads O2 Sat by Pulse Oximetry: 100 (O2 via NC) Pulse Ox Interpretation: Normal - Radiology X-Ray: Interpreted by Me X-Ray Interpretation: No Acute Disease - Core Measure Core Measure Indicators: Code Heart - Critical Care Total Time (In Min): 60 Documented Critical Care: Time excludes all time spent performint seperately billable procedures Medical Decision Making Medical Decision [place] female with acute [place] Prior records reviewed, patient admitted to this facility 10/04/18 due to penumonia and hypoglycemia Patient also evaluated in this facility on 10/28 for psychiatric evaluation, and was unwilling to sign in; outpatient follow up was scheduled at that time. 1059 EKG reviewed, code heart called Labs, CXR, accucheck ordered [address] Norman (code heart), who recommends a repeat EKG 1104 Repeat EKG indicates sinus tachycardia, 101 BPM, ST elevations in 2, 3 and AVF [address] Norman, who states patient does not meet criteria for code heart. Will re-review information from right sided leads. Currently pending call back. 1113 CT Head w/o contrast ordered due to AMS [address] Norman who states he will accept patient if next of kin available for consent. 1121 Patient with improved blood pressure, O2 sat is 100% 1122 Consent obtained from patient's next of kin (Jonathon Erwin) via telephone; consent verified by EMILIA Matamoros Family member informed patient will be transferred to for emergent cardiac cath Dr. Norman informed of consent, agreeable with transfer of patient for code heart. Transfer to initiated. 1133 ASA 300mg AR given 1135 CT Head reviewed by Dr. Giang (radiologist), who states no active bleed noted at this time Heparin 4000 units IV given Scribe Attestation: Documented by Marce Herrera acting as a scribe for Sherin Sandhu MD. Provider Attestation: All medical record entries made by the Scribe were at my direction and personally dictated by me. I have reviewed the chart and agree that the record accurately reflects my personal performance of the history, physical exam, medical decision making, and the department course for this patient. I have also personally directed, reviewed, and agree with the discharge instructions and disposition. Disposition - Clinical Impression Clinical Impression: STEMI (ST elevation myocardial infarction) - Patient ED Disposition Is Patient to be Admitted: Transfer of Care - Disposition Disposition: Other Institution () Disposition Time: 11:22 Condition: CRITICAL Forms: [facility] (Palestinian) - POA Core Measure Indicators: Code Heart
[2018-11-02 11:06] VITALS: BMI 29.9
[2018-11-02 11:17] LABS: INR 1.1; PROTHROMBIN TIME 12.6 Seconds (9.8-13.1)
[2018-11-02 11:19] LABS: BASO % 0.1 % (0.0-2.0); HEMOGLOBIN 11.4 g/dL (12.0-16.0); LYMPH # 1.7 K/uL (1.0-4.3); LYMPH % 8.4 % (20.0-40.0); MEAN CELL VOLUME 92.3 fl (81.0-99.0); MEAN CORPUSCULAR HEMOGLOBIN 27.4 pg (27.0-31.0); MEAN CORPUSCULAR HGB CONC 29.7 g/dL (33.0-37.0); MEAN PLATELET VOLUME 10.3 fl (7.2-11.7); MONO # 0.5 K/uL (0.0-0.8); MONO % 2.7 % (0.0-10.0); NEUT # 18.3 K/uL (1.8-7.0); NEUT % 88.8 % (50.0-75.0); NRBC % 0.1 % (0.0-0.0); PLATELET COUNT 550 K/uL (130-400); RBC 4.15 Mil/uL (3.80-5.20); WHITE BLOOD COUNT 20.6 K/uL (4.8-10.8)
[2018-11-02 11:27] VITALS: PULSE 142; RESP 24
[2018-11-02] MEDS ORDERED: Heparin 25,000units in D5W 25,000 UNITS/250 ML BAG IV ONE (11:37)
[2018-11-02 11:39] LABS: B-TYPE NATRIURETIC PEPTIDE 4820 pg/ml (0-900)
[2018-11-02] MEDS ORDERED: Heparin 25,000units in D5W 25,000 UNITS/250 ML BAG IV SCH (11:45)
--- NOTE | 2018-11-02 11:48 | CT ---
Date of service: 11/02/2018 PROCEDURE: CT HEAD WITHOUT CONTRAST. HISTORY: AMS COMPARISON: Comparison made with TECHNIQUE: Axial computed tomography images were obtained through the head/brain without intravenous contrast. Radiation dose: Total exam DLP = 460.55 mGy-cm. This CT exam was performed using one or more of the following dose reduction techniques: Automated exposure control, adjustment of the mA and/or kV according to patient size, and/or use of iterative reconstruction technique. FINDINGS: HEMORRHAGE: No acute parenchymal, subarachnoid or extra-axial hemorrhage. BRAIN: Mild chronic periventricular white matter ischemic changes seen extending peripherally into the deep white matter both cerebral hemispheres. In addition, there are a few scattered chronic appearing bilateral basal nuclei lacunar type infarcts. Moderate central volume loss. Mild vascular calcifications both carotid siphons. VENTRICLES: No obstructive hydrocephalus CALVARIUM: Calvarium intact. Mild hyperostosis frontalis interna. PARANASAL SINUSES: Unremarkable as visualized. No significant inflammatory changes. MASTOID AIR CELLS: Unremarkable as visualized. No inflammatory changes. OTHER FINDINGS: Incidental note made of an elliptical shaped soft tissue density within the left superior parietal scalp that contains coarse calcifications. Changes of left-sided cataract surgery. IMPRESSION: No acute intracranial hemorrhage. Mild chronic white matter ischemic changes with scattered chronic bilateral basal nuclei lacunar type infarcts. Moderate central volume loss. These findings discussed with Dr. Sandhu at approximately 11:35 a.m. with written down and read back verification.
[2018-11-02 11:58] LABS: BLOOD UREA NITROGEN 54 mg/dl (7-17); CALCIUM 8.8 mg/dL (8.4-10.2); GFR NON-AFRICAN AMERICAN 6
[2018-11-02 12:12] LABS: ANISOCYTOSIS SLIGHT; EOSINOPHIL 1 % (0-7); LYMPHOCYTE 10 % (20-50); MONOCYTE 3 % (0-10); NEUTROPHIL 86 % (42-75); PLATELET ESTIMATE NORMAL (NORMAL); POIKILOCYTOSIS SLIGHT; TOTAL CELLS COUNTED 100
[2018-11-02 12:39] VITALS: BP 104/64; TEMP 98.6
[2018-11-02 13:30] VITALS: O2SAT 100
--- NOTE | 2018-11-02 15:01 | RAD ---
Date of service: 11/02/2018 HISTORY: CP COMPARISON: Comparison chest 10/28/2018 and prior CTA chest dated 08/09/2018. TECHNIQUE: 1 view obtained. FINDINGS: LUNGS: Suspect mild left basilar atelectasis PLEURA: No significant pleural effusion identified, no pneumothorax apparent. CARDIOVASCULAR: Mild aortic atherosclerotic calcification present. Heart is mildly enlarged.. Large hiatal hernia. OSSEOUS STRUCTURES: No significant abnormalities. VISUALIZED UPPER ABDOMEN: Normal. OTHER FINDINGS: None. IMPRESSION: Suspect mild left basilar atelectasis
--- NOTE | 2018-11-02 16:00 | CP.PCM.CON ---
History of Present Illness - History of Present Illness History of Present Illness: pt is seen and examined by me, full consult is dictated #[id number] 1. AMS 2. High Ag met. acidosis 3. High Osmlar gap 4. MONE, oliguric, R/O ATN SEC TO SEPSIS, 5. S/p intubation 6. R/o DKA r/o methanol, r/o ehtylene glycol poisoning cw insulin drip c/w iv [id number] drip d/w pt 's niece ,agreed for hemodialysis check blood c/s, urine c/s agree with iv abx c/w icu attending ICU ATTENDING AND PT'S NIECE AGREED FOR HEMODIALYSIS FOR BENEFIT OF PATIENT Past Patient History - Tetanus Immunizations Tetanus Immunization: Unknown - Past Medical History & Family History Past Medical History?: Yes - Past Social History Smoking Status: Never Smoked - CARDIAC Hx Congestive Heart Failure: Yes Hx Hypercholesterolemia: Yes Hx Hypertension: Yes - PULMONARY Hx Asthma: Yes Hx Chronic Obstructive Pulmonary Disease (COPD): Yes - NEUROLOGICAL Hx Seizures: No - HEENT Hx HEENT Problems: Yes - RENAL Hx Chronic Kidney Disease: No - ENDOCRINE/METABOLIC Hx Endocrine Disorders: Yes Hx Diabetes Mellitus Type 2: Yes - HEMATOLOGICAL/ONCOLOGICAL Hx Anemia: Yes Hx Human Immunodeficiency Virus (HIV): No - INTEGUMENTARY Hx Dermatological Problems: No - MUSCULOSKELETAL/RHEUMATOLOGICAL Hx Musculoskeletal Disorders: No Hx Falls: Yes (Unknown.) - GASTROINTESTINAL Hx Gall Bladder Disease: Yes - GENITOURINARY/GYNECOLOGICAL Hx Sexually Transmitted Disorders: No - PSYCHIATRIC Hx Depression: Yes - SURGICAL HISTORY Hx Cholecystectomy: Yes - ANESTHESIA Hx Anesthesia: Yes Hx Anesthesia Reactions: No Hx Malignant Hyperthermia: No Meds Allergies/Adverse Reactions: Allergies Allergy/AdvReac Type Severity Reaction Status Date / Time EGG Allergy REDNESS Verified 10/04/18 08:50 Results - Vital Signs Recent Vital Signs: Last Vital Signs Temp 98.6 F 11/02/18 12:38 Pulse 142 H 11/02/18 12:38 Resp 24 11/02/18 12:38 BP 104/64 11/02/18 12:38 Pulse Ox 100 11/02/18 13:44 - Labs Result Diagrams: 11/02/18 11:06 11/02/18 11:06 Labs: Laboratory Results - last 24 hr 11/02/18 11/02/18 11/02/18 10:53 11:06 11:06 WBC 20.6 H D RBC 4.15 Hgb 11.4 L Hct 38.3 MCV 92.3 D MCH 27.4 MCHC 29.7 L RDW 19.0 H Plt Count 550 H D MPV 10.3 Neut % (Auto) 88.8 H Lymph % (Auto) 8.4 L [place] % (Auto) 2.7 Eos % (Auto) 0.0 Baso % (Auto) 0.1 Neut # (Auto) 18.3 H Lymph # (Auto) 1.7 [place] # (Auto) 0.5 Eos # (Auto) 0.0 Baso # (Auto) 0.0 Neutrophils % (Manual) 86 H Lymphocytes % (Manual) 10 L Monocytes % (Manual) 3 Eosinophils % (Manual) 1 Platelet Estimate Normal Poikilocytosis (manual Slight Anisocytosis (manual) Slight PT INR APTT Sodium 145 Potassium 5.0 Chloride 109 H Carbon Dioxide < 5 L* D Anion Gap 36 H BUN 54 H Creatinine 6.3 H Est GFR ( Amer) 8 Est GFR (Non-Af Amer) 6 POC Glucose (mg/dL) 224 H Random Glucose 223 H Calcium 8.8 Troponin I < 0.0120 NT-Pro-B Natriuret Pep 4820 H 11/02/18 11:06 WBC RBC Hgb Hct MCV MCH MCHC RDW Plt Count MPV Neut % (Auto) Lymph % (Auto) [place] % (Auto) Eos % (Auto) Baso % (Auto) Neut # (Auto) Lymph # (Auto) [place] # (Auto) Eos # (Auto) Baso # (Auto) Neutrophils % (Manual) Lymphocytes % (Manual) Monocytes % (Manual) Eosinophils % (Manual) Platelet Estimate Poikilocytosis (manual Anisocytosis (manual) PT 12.6 INR 1.1 APTT 27.0 Sodium Potassium Chloride Carbon Dioxide Anion Gap BUN Creatinine Est GFR ( Amer) Est GFR (Non-Af Amer) POC Glucose (mg/dL) Random Glucose Calcium Troponin I NT-Pro-B Natriuret Pep
--- NOTE | 2018-11-03 06:14 | CARD ---
APPROVED REPORT Date of service: 11/02/2018 EKG Measurement Heart [id number] <Conclusion> Sinus tachycardia Low voltage QRS Inferior infarct, possibly acute Anterolateral infarct, age undetermined ACUTE [place] / STEMI Abnormal ECG
== END 2018-11-02 12:05 | disposition short-term general hospital (02) ==
LOC: H.ER 10:42
DX: I21.3 ST elevation (STEMI) myocardial infarction of unspecified site (principal); I11.0 Hypertensive heart disease with heart failure; J44.9 Chronic obstructive pulmonary disease, unspecified; N17.9 Acute kidney failure, unspecified; Z79.4 Long term (current) use of insulin; Z86.59 Personal history of other mental and behavioral disorders; E11.9 Type 2 diabetes mellitus without complications; F03.90 Unspecified dementia, unspecified severity, without behavioral disturbance, psychotic disturbance, mood disturbance, and anxiety
CPT/HCPCS: 70450; 71045; 80048; 82948; 83880; 84484; 85025; 85610; 85730; 93005; 96374; 99285; J1644